=== PATIENT | male | born 1975 | race Caucasian/White ===

== ENCOUNTER 2020-07-25 15:32 | Observation (INO) | payer BC, SELFPAY ==
--- NOTE | ~2020-07-25 | CT_ITS ---
EXAMINATION: CT abdomen pelvis w con DATE: 07/25/2020 20:50 INDICATION: Abdominal pain TECHNIQUE: Computed tomography (CT) of the abdomen and pelvis was performed with 100 mL Omnipaque-350 intravenous contrast. Automated exposure control and iterative reconstruction technique were employe d. The dose-length product was 1509.84 mGy-cm. COMPARISON: None FINDINGS: 9 mm nodule in the right middle lobe with several smaller surrounding satellite nodules. Discoid atel ectasis in the lingula and left lower lobe. Heart size is normal. No pericardial or pleural effusion. Liver, gallbladder, spleen, pancreas and bilateral adrenal glands are normal. Few bilateral subcenti meter low-attenuation likely renal cysts which remain too small to definitively characterize. There i s inflammatory stranding surrounding the appendix which is dilated to 12 mm distal to likely obstruct ing appendicolith in the proximal appendix consistent with acute appendicitis. Remainder of the bowel s are normal. No abscess or free intraperitoneal gas or fluid. Small fat-containing umbilical hernia. Bladder is normal. Small bilateral fat-containing inguinal hernias. Mild lower lumbar spondylosis. IMPRESSION: 1. Acute appendicitis. Dr. Herring discussed these findings with Dr. Guerrero at 9:00 PM. Reviewed, dictated and finalized at location A. IMPRESSION: 1. Acute appendicitis. Dr. Herring discussed these findings with Dr. Guerrero at 9 :00 PM.
[2020-07-25 16:13] VITALS: BP 153/79; PULSE 63; RESP 16; TEMP 36.7; O2SAT 99
[2020-07-25 16:24] LABS: Basophils Absolute Auto 0.1 K/mm3 (0.0-0.1); Basophils Percent Auto 0.6 % (0.2-1.2); Eosinophils Absolute Auto 0.1 K/mm3 (0-0.3); Eosinophils Percent Auto 0.8 % (0-4.4); Hematocrit 51.8 % (42.0-52.0); Hemoglobin 16.5 g/dL (14.0-18.0); Immature Granulocyte Absolute 0.05 K/mm3 (0.00-0.031); Immature Granulocyte Percent A 0.4 % (0-0.5); Lymphocytes Absolute Auto 1.46 K/mm3 (0.9-3.2); Lymphocytes Percent Auto 11.8 % (18.3-44.2); Mean Corpuscular HGB Conc 31.9 g/dl (32-36); Mean Corpuscular Hemoglobin 30.9 pg (26-34); Mean Platelet Volume 9.9 fl (7.4-10.4); Monocytes Absolute Auto 1.1 K/mm3 (0.1-0.6); Monocytes Percent Auto 8.5 % (2.6-8.5); Neutrophils Absolute Auto 9.7 K/mm3 (1.3-6.7); Neutrophils Percent Auto 77.9 % (45.5-73.1); Platelet Count Result 225 k/mm3 (150-375); Red Blood Count 5.34 M/mm3 (4.6-6.20); Red Cell Distribution Width 14.2 % (11.5-14.5); White Blood Count 12.4 K/mm3 (4.5-10.0)
[2020-07-25 16:33] LABS: Alanine Aminotransferase 36 U/L (4-50); Albumin Level 4.6 g/dL (3.5-5.1); Alkaline Phosphatase 41 U/L (38-126); Anion Gap 12 mmol/L (8-16); Aspartate Amino Transferase 36 U/L (17-59); Bilirubin,Total 1.2 mg/dL (0.2-1.3); Blood Urea Nitrogen 10 mg/dL (9-20); Calcium 9.8 mg/dL (8.4-10.2); Carbon Dioxide 27 mmol/L (22-30); Chloride 103 mmol/L (98-107); Estimated CRCL calculation 101 ml/min; Estimated Glomerular Filt Rate 60; Glucose 103 mg/dL (75-110); Lipase 89 U/L (23-300); Potassium 4.5 mmol/L (3.4-5.0); Sodium 142 mmol/L (137-145)
[2020-07-25 17:14] LABS: Add Urine Microscopic? YES; Appearance Urine Clear (Clear); Bacteria Urine Trace /hpf; Bilirubin Urine Negative (Negative); Blood Urine Negative (Negative); Color Urine Yellow (Yellow); Glucose Urine UA Negative (Negative); Ketones Urine Negative (Negative); Leukocyte Esterase Ur Negative LEU/UL (Negative); Mucus Urine Rare /lpf; Nitrate Urine Negative (Negative); Protein Urine 1+ mg/dL (Negative); RBC Urine 0-2 /hpf (0-2); Specific Grav Ur 1.025 (1.001-1.035); Urobilinogen Urine Negative mg/dL (<2.0); WBC Urine 0-3 /hpf
[2020-07-25 19:29] VITALS: BP 148/90; PULSE 63; RESP 17; TEMP 36.7; O2SAT 100
--- NOTE | 2020-07-25 19:40 | PC.NURSE ---
pt c/o abd pain to medial upper abd. reports waking up c chronic abd pain x 3 years without resolution/dx. pt reports ate 'a lot of sushi last night' and woke up feeling nauseous. approx. 1400 today pt vomited large amt of green/yellow bile. pt currently in no distress. resps even/nonlabored.
--- NOTE | 2020-07-25 19:53 | ED.GENADULT ---
HPI - General Adult General Chief complaint: Abdominal Pain Stated complaint: abd pain Time Seen by Provider: 07/25/20 19:31 Source: patient History of Present Illness HPI narrative: Patient is a 45 y/o male complaining of abdominal pain starting 12 hours ago. He describes his pain as sharp and cramping. He rates his pain as 7/10. The pain is mostly located in epigastric area. There is no alleviating or exacerbating factor. He has some vomiting, but no diarrhea. Related Data Home Medications Medication Instructions Recorded Confirmed omeprazole 40 mg capsule,delayed 40 mg PO DAILY 03/16/19 07/25/20 release atorvastatin 20 mg PO DAILY 07/25/20 07/25/20 irbesartan 150 mg PO DAILY 07/25/20 07/25/20 metoprolol succinate 50 mg PO DAILY 07/25/20 07/25/20 Allergies Allergy/AdvReac Type Severity Reaction Status Date / Time No Known Allergies Allergy Mild Verified 07/25/20 22:53 Review of Systems Constitutional: Constitutional: Denies chills, Denies fever(s), Denies headache(s) and Denies weakness Eyes: Eyes: Denies blurry vision ENT: Denies headache(s) and Denies neck pain Cardiovascular: Cardiovascular: Denies chest pain and Denies dyspnea Respiratory: Respiratory: Denies cough and Denies dyspnea Gastrointestinal: Gastrointestinal: Reports abdominal pain, Denies diarrhea, Reports nausea and Reports vomiting Genitourinary: Genitourinary: Denies hematuria and Denies dysuria Musculoskeletal: Musculoskeletal: Denies back pain and Denies neck pain Neurologic: Denies headache(s) and Denies weakness [facility] Past Medical History Medical History Erectile dysfunction Hyperlipidemia LDL goal <130 Family History Family History Mother Diabetes mellitus Family history of gout Grandparent Diabetes mellitus Family history of malignant neoplasm Father Family history of chronic obstructive pulmonary disease Family history of congestive heart failure Social History Social History Smoking status: Never smoker Alcohol intake: current Drinks per week: 7 Substance use: never Spiritual care concerns: No Exam Const: General: no acute distress and well developed Orientation/consciousness: oriented to person, oriented to place, oriented to time and patient oriented x3 HENMT: Head: normocephalic Ears: external ears normal General nose exam: Normal external nose present Eyes: General: appearance normal, both eyes and all related structures Conjunctivae: conjunctivae normal Neck: Neck: normal visual inspection and full ROM Chest: Chest palpation & inspection: normal inspection of the chest and no tenderness Resp: Effort & Inspection: normal respiratory effort Auscultation: clear to auscultation bilaterally Cardio: Rate: regular rate Rhythm: regular rhythm GI: GI Palp: No abdominal tenderness and Yes Soft to palpation Skin: General skin exam: normal color and turgor normal Neuro: General: oriented to person, oriented to place, oriented to time and patient oriented x3 Cognition (Neuro): normal cognition Extrem: General: normal to inspection, full ROM and no pedal edema Psych: Appearance: grossly normal Mental Status: mental status grossly normal Affect: normal affect Course Consultations Consultation #1: Discussed with Dr. Ornelas, who agrees to admit. He recommends IV antibiotics and NPO after midnight. Date: 07/25/20 Time: 21:05 Vital Signs Vital signs: Vital Signs Temperature 36.7 C 07/25/20 16:13 Pulse Rate 63 07/25/20 16:13 Respiratory Rate 16 07/25/20 16:13 Blood Pressure 153/79 H 07/25/20 16:13 Pulse Oximetry 99 07/25/20 16:13 Temperature 36.7 C 07/25/20 22:30 Pulse Rate 70 07/25/20 22:30 Respiratory Rate 20 07/25/20 22:30 Blood Pressure 139/80 07/25/20 22:30 Pulse Oximetry 99 07/25/20 22
[2020-07-25] MEDS: METOCLOPRAMIDE HCL INJ 10 MG/2 ML VIAL IV PUSH (20:25)
[2020-07-25] MEDS: KETOROLAC 30 MG/ML VIAL (*BKC) IV PUSH (20:25)
[2020-07-25] MEDS: SODIUM CHLORIDE 0.9% IV 1,000 ML 999 ML IV CONT (20:25)
[2020-07-25 21:31] VITALS: PULSE 88; RESP 18; O2SAT 100
[2020-07-25 21:34] VITALS: BP 157/113; PULSE 88; RESP 18; TEMP 36.7; O2SAT 100
--- NOTE | 2020-07-25 22:25 | PC.NURSE ---
This patient, Werner Mendoza, was admitted to [facility] S[facility] Room 310-01. Patient/family oriented to hospital policies and general routines including ID bracelet, bed and alarms, visiting hours, pain management, procedures, bathroom and other care routines, personal items, smoking policy, room service/diet, and visiting hours. Information on how to activate the Rapid Response Team has been discussed. Patient/Family are encouraged to report perceived risks to care and to ask questions if they do not understand what they are told or what they should do.
[2020-07-25 22:30] VITALS: BP 139/80; PULSE 70; RESP 20; TEMP 36.7; O2SAT 99; BMI 36.8
[2020-07-25] MEDS: SODIUM CHLORIDE 0.9% IV 1,000 ML 125 ML IV CONT (22:34)
[2020-07-25] MEDS: MORPHINE SULFATE (*CRX) 4 MG/ML INJ IV PUSH (22:34)
[2020-07-26] VITALS (13 sets, daily range): BP systolic 125–147; BP diastolic 53–79; PULSE 67–82; RESP 12–20; TEMP 36.1–37.6; O2SAT 91–100
[2020-07-26] MEDS: MORPHINE SULFATE (*CRX) 4 MG/ML INJ IV PUSH ×2 (05:12→08:18)
[2020-07-26] MEDS: SODIUM CHLORIDE 0.9% IV 1,000 ML 125 ML IV CONT (05:13)
--- NOTE | 2020-07-26 09:17 | PM.IMHP ---
H&P: HPI History of Present Illness Date/Time: 07/26/20 09:17 Chief Complaint: Generalized abdominal pain, vomiting Narrative: This is a 45-year-old male with a history of hypertension and obstructive sleep apnea, who presented to the emergency department last night with complaints of abdominal pain. He reports 1st noticing an onset of mild upper abdominal pain around 8:30 a.m. yesterday. Throughout the day, this progressively worsened and became generalized across his entire abdomen. He reports this as a burning pain. He also reports nausea throughout the day, with 2 episodes of vomiting followed by chills. Due to the unrelenting pain, the patient presented to the ER for further evaluation. CT scan of the abdomen and pelvis showed acute uncomplicated appendicitis. Labs revealed mild leukocytosis. He was admitted to our service for surgical evaluation of acute appendicitis. The patient reports that his pain began to localize to the right lower quadrant overnight and into this morning. Now, he is only having right lower quadrant abdominal pain. He is seen on the medical floor. No longer feeling nauseated. He has not had anything to eat or drink since 10:00 p.m. last night. No other complaints at this time. Review of Systems Review of Systems: All systems reviewed & are unremarkable except as noted in HPI and below Constitutional: Constitutional: Reports as per HPI, Reports chills, Denies fatigue and Denies fever(s) Eyes: Eyes: Reports no additional eye complaints and Denies change in vision ENT: Reports system reviewed and no additional complaints, except as documented, Reports Normal hearing present and Denies dizziness Cardiovascular: Cardiovascular: Reports no additional cardiovascular complaints, Denies chest pain and Denies leg edema Respiratory: Respiratory: Reports no additional respiratory complaints, Denies cough and Denies dyspnea Gastrointestinal: Gastrointestinal: Reports as per HPI, Reports no additional gastrointestinal complaints, Reports abdominal pain, Denies bloating, Denies change in bowel habits, Denies coffee ground emesis, Denies constipation, Reports nausea, Reports vomiting and Denies hematemesis Genitourinary: Genitourinary: Denies hematuria and Denies dysuria Musculoskeletal: Musculoskeletal: Denies abnormal gait, Denies deformity and Denies joint swelling Integumentary/Breasts: Skin/Breast: Denies wounds and Denies jaundice Neurologic: Reports system reviewed and no additional complaints, except as documented, Denies abnormal gait, Denies dizziness, Denies focal weakness, Denies numbness and Denies tingling Psychiatric: Psychiatric: Reports anxiety (takes Lexapro for this, controlled) and Denies depression [facility] Past Medical History Medical History (Updated 07/26/20 @ 09:27 by MICHELLE Lynn) Anxiety Erectile dysfunction Hyperlipidemia LDL goal <130 Hypertension Obstructive sleep apnea Surgical History Surgical History History of foot surgery History of inguinal hernia repair at age 7 Family History Family History Mother Diabetes mellitus Family history of gout Grandparent Diabetes mellitus Family history of malignant neoplasm Father Family history of chronic obstructive pulmonary disease Family history of congestive heart failure Social History Social History Social History: The patient lives at home with his , Beverly. He does not have a durable Healthcare power of inpatient care manager rn, and wishes that his Beverly make any decisions for him if he becomes unable to make decisions himself. Smoking status: Former smoker Smoking end date: 02/18/97 Alcohol intake: current Drinks per week: 7 Substance use: never Substance use type: does not use Living arrangements: with family Occupation/Edu
--- NOTE | 2020-07-26 10:36 | WPDHPUPDATE1 ---
History and Physical Update Update Date/Time: 07/26/20 10:36 History and Physical has been reviewed, including an updated exam of the patient. There are NO changes in the patient's condition. Risks, benefits, and alternatives have been discussed and questions answered. Patient agrees to proceed with procedure.
--- NOTE | 2020-07-26 10:50 | WPDANESEPPF ---
Anes - Initial Pre Proc Eval Procedure: Operation Date: 07/26/20 12:30 Proposed Procedures p Laparoscopic Appendectomy - Melba Ornelas MD Date/Time: 07/26/20 10:50 Surgeon: Melba Ornelas MD Pre Op Diagnosis: Appendicitis Patient Data Age: 45 Gender: M Height: 2.01 m Weight: 148.5 kg Last Vital Signs Temp 37.6 C 07/26/20 05:50 Pulse 75 07/26/20 05:50 Resp 18 07/26/20 05:50 BP 126/69 07/26/20 05:50 Pulse Ox 97 07/26/20 05:50 Allergies Allergy/AdvReac Type Severity Reaction Status Date / Time No Known Allergies Allergy Mild Verified 07/26/20 11:21 Home Medications Medication Instructions Recorded Confirmed Type omeprazole 40 mg capsule,delayed 40 mg PO DAILY 03/16/19 07/25/20 History release tadalafil 20 mg tablet 20 mg PO DAILY PRN #18 tablet 03/14/20 07/25/20 Rx escitalopram oxalate 20 mg tablet 20 mg PO DAILY #90 tablet 05/03/20 07/25/20 Rx atorvastatin 20 mg PO DAILY 07/25/20 07/25/20 History irbesartan 150 mg PO DAILY 07/25/20 07/25/20 History metoprolol succinate 50 mg PO DAILY 07/25/20 07/26/20 History Laboratory Tests 07/25/20 07/25/20 07/25/20 16:17 16:17 16:45 WBC 12.4 K/mm3 H K/mm3 (4.5-10.0) RBC 5.34 M/mm3 M/mm3 (4.6-6.20) Hgb 16.5 g/dL g/dL (14.0-18.0) Hct 51.8 % % (42.0-52.0) MCV 97.0 fl fl (80-100) MCH 30.9 pg pg (26-34) MCHC 31.9 g/dl L g/dl (32-36) RDW 14.2 % % (11.5-14.5) Plt Count 225 k/mm3 k/mm3 (150-375) MPV 9.9 fl fl (7.4-10.4) Immature Gran % (Auto) 0.4 % % (0-0.5) Neut % (Auto) 77.9 % H % (45.5-73.1) Lymph % (Auto) 11.8 % L % (18.3-44.2) [place] % (Auto) 8.5 % % (2.6-8.5) Eos % (Auto) 0.8 % % (0-4.4) Baso % (Auto) 0.6 % % (0.2-1.2) Lymph # (Auto) 1.46 K/mm3 K/mm3 (0.9-3.2) [place] # (Auto) 1.1 K/mm3 H K/mm3 (0.1-0.6) Eos # (Auto) 0.1 K/mm3 K/mm3 (0-0.3) Baso # (Auto) 0.1 K/mm3 K/mm3 (0.0-0.1) Abs Immat Gran (auto) 0.05 K/mm3 H K/mm3 (0.00-0.031) Absolute Neuts (auto) 9.7 K/mm3 H K/mm3 (1.3-6.7) Absolute Nucleated RBC 0.0 K/mm3 K/mm3 (0.0-0.012) Nucleated RBC % 0.0 % % (0.0-0.2) Sodium 142 mmol/L mmol/L (137-145) Potassium 4.5 mmol/L mmol/L (3.4-5.0) Chloride 103 mmol/L mmol/L (98-107) Carbon Dioxide 27 mmol/L mmol/L (22-30) Anion Gap 12 mmol/L mmol/L (8-16) BUN 10 mg/dL mg/dL (9-20) Creatinine 1.30 mg/dL mg/dL (0.7-1.3) Estim Creat Clear Calc 101 ml/min ml/min Estimated GFR 60 (59 - ) Glucose 103 mg/dL mg/dL (75-110) Calcium 9.8 mg/dL mg/dL (8.4-10.2) Total Bilirubin 1.2 mg/dL mg/dL (0.2-1.3) AST 36 U/L U/L (17-59) ALT 36 U/L U/L (4-50) Alkaline Phosphatase 41 U/L U/L (38-126) Total Protein 8.0 g/dL g/dL (6.3-8.2) Albumin 4.6 g/dL g/dL (3.5-5.1) Lipase 89 U/L U/L (23-300) Urine Color Yellow (Yellow) Urine Appearance Clear (Clear) Urine pH 6.0 (5.0-9.0) Ur Specific [place] 1.025 (1.001-1.035) Urine Protein 1+ mg/dL H mg/dL (Negative) Urine Glucose (UA) Negative mg/dL mg/dL (Negative) Urine Ketones Negative mg/dL mg/dL (Negative) Ur Blood (Man) Negative (Negative) Urine Nitrate Negative (Negative) Urine Bilirubin Negative (Negative) Urine Urobilinogen Negative mg/dL mg/dL (<2.0) Leukocyte Esterase Rfl Negative MARI/UL MARI/UL (Negative) Urine RBC 0-2 /hpf /hpf (0-2) Urine WBC 0-3 /hpf /hpf Urine Bacteria Trace /hpf /hpf Urine Mucus Rare /lpf /lpf Patient hx anesthesia
--- NOTE | 2020-07-26 11:08 | PC.NURSE ---
To OR per bed, IV on standby. Report given to RN.
[2020-07-26] MEDS: LACTATED RINGERS 1,000 ML 30 ML IV CONT ×2 (11:26→13:28)
[2020-07-26] MEDS: BUPIVACAINE/EPINEPHRINE 0.5% 10 ML VIAL 30 ML INFILTRATE (12:59)
--- NOTE | 2020-07-26 13:36 | W.PM.PROC2 ---
Procedure Note - Detailed Date of Procedure 07/26/20 Pre-op Diagnosis Appendicitis Post-op Diagnosis same Procedure Performed laparoscopic appendectomy Surgeon Melba Ornelas MD Anesthesia general Indications acute appendicitis Findings acute appendicitis no evidence of perforation Description of Procedure The patient was taken to the operating room and placed in the supine position. After adequate induction of general anesthesia, the patient was prepped and draped in the normal sterile fashion. A time-out was then done to verify the patient's identity, as well as the procedure being performed. I began by making a 5 mm incision in the infraumbilical region, through this a Veress needle was placed in the peritoneal cavity. CO2 gas was then insufflated and after adequate pneumoperitoneum was achieved the Veress needle was removed. Then placed a 5 mm Optiview trocar under direct visualization into the peritoneal cavity. I then insufflated through this trocar site and the endoscope was placed into the trocar. Under direct visualization, placed 2 further 5 mm suprapubic port as well as an additional 12 mm port in the left lower abdomen. At this point identified the cecum, I retracted the cecum both medially and superiorly allowing me to expose the appendix. The appendix was noted to be very dilated and inflamed especially towards the tip. The appendix was noted to be very adherent to the right lateral sidewall as well as the ileum. I was able to bluntly dissect the appendix from these adhesions. I then was able to locate the base of the appendix with the cecum. I created a window with the [place] dissector between the appendix itself and the mesoappendix. I then transected the mesoappendix with a white vascular staple load. The Endo-PRACHI was then reloaded with a blue staple load and I transected the base of the appendix. Once the specimen was completely detached, an endo-pouch was placed into the 12 mm port site and the specimen was removed through the endo-pouch. The appendiceal specimen will be sent to pathology for further review. I then copiously irrigated the right lower quadrant. Hemostasis was noted at both staple lines no other pathology was seen in this area. I then moved the camera to the suprapubic port to check our its port of entry. No iatrogenic injury or other pathology was noted in the upper abdomen. I then closed the 12 mm port site with a Yonis code and 0 Vicryl suture under direct visualization. At this point, the abdomen was desufflated and all ports were removed. All port sites were closed with 4 Monocryl subcuticular suture. Dermabond was placed on all wounds. The patient tolerated the procedure well and was extubated in the operating room postop. He will be sent to the recovery room in stable condition. Estimated Blood Loss 10 Drains No Packing No Pathology yes Complications No immediate complications Condition stable Disposition PACU
[2020-07-26] MEDS: fentaNYL CITRATE INJ (*CRX) 100 MCG/2 ML VIAL 25 MCG IV PUSH (14:26)
--- NOTE | 2020-07-26 15:05 | PC.NURSE ---
Returned from OR per bed. Report received from RN. Resting quietly, denies pain of discomfort at present. at bedside.
--- NOTE | 2020-07-27 07:37 | WPDANESPN ---
Anes - Prog Note Post-Op Date/Time: 07/27/20 07:37 Cardiovascular status: normal Respiratory status: normal Airway patency: baseline Mental status: baseline Post-Op hydration status: normal Vital Signs: Last Vital Signs Temp 98.6 F 07/26/20 16:50 Pulse 78 07/26/20 16:50 Resp 18 07/26/20 16:50 BP 125/73 07/26/20 16:50 Pulse Ox 99 07/26/20 16:50 Pain Score (VAS): 0 I/O: Intake & Output 07/26/20 07/26/20 07/27/20 15:59 23:59 07:59 Intake Total 800 Balance 800 Laboratory Tests 07/25/20 16:17 07/25/20 16:17 Post-procedural complaints: none Patient Feedback: Patient satisfied with anesthetic care.
--- NOTE | 2020-07-28 13:14 | PM.DS ---
DS: Admitting Diagnosis Admitting Diagnosis Admitting Diagnosis: Acute appendicitis DS: Discharge Diagnosis Discharge Diagnosis (1) Acute appendicitis: Qualifiers: Acute appendicitis type: unspecified acute appendicitis type Qualified Code(s): K35.80 - Unspecified acute appendicitis Code(s): K35.80 - Unspecified acute appendicitis Status: Acute Assessment and Plan: doing well, continue routine postoperative care, home with p.o. analgesia, follow up 2 weeks DS: Summary Hospital Course Reason for hospitalization: acute appendicitis Hospital Course: The patient is a 45-year-old male presenting to the emergency department complaining of lower abdominal pain. Workup in the emergency department, including imaging, was significant for acute appendicitis. Given this, the patient was admitted to the surgical service, made NPO, and started on IV antibiotics. Upon evaluation, the patient was set up for urgent appendectomy. The patient underwent laparoscopic appendectomy on 07/26/2020, please see full operative report for details. Postoperative, the patient did well and was transferred back to the floor. The patient reported his pain was well controlled and he was able to tolerate a diet. The patient was able to ambulate without difficulty. The patient will be sent home with routine instructions for postoperative care as well as p.o. analgesia. He will follow up in 2 weeks. Status at Discharge Functional status at discharge: independent ambulation Overall status at discharge: patient is progressing back to baseline Time Spent with Patient Time attestation: Total time spent providing and/or coordinating discharge services: Time spent: Less than 30 minutes Exam Const: General: cooperative, comfortable and no acute distress Orientation/consciousness: patient oriented x3 Resp: Effort & Inspection: normal respiratory effort Auscultation: clear to auscultation bilaterally Cardio: Rate: regular rate Rhythm: regular rhythm GI: Inspection: normal to inspection, distended and incision GI Palp: Yes Soft to palpation, Yes Tenderness to palpation present (GI) and No Guarding due to palpation present (GI) DS: Data Data Completed and Pending Completed studies during hospitalization: Pending at discharge 07/26/20 12:53 Surgical [PTH] Routine Discharge Plan Discharge Attending physician on discharge: Melba Ornelas Consulting providers: Noemy Ayers ; Carlos Diaz ; Yusuf Herring Discharging Clinician: Melba Ornelas Anticipated Discharge Date/Time: 07/26/20 18:00 Patient Disposition: Home, Self-Care Activity: other - see discharge instructions Diet: as tolerated Wound Care Instructions: follow printed instructions Discharge Instructions: DISCHARGE INSTRUCTION SHEET FOR HERNIA, GALLBLADDER AND APPENDIX SURGERIES DR. ORNELAS PATIENT TO TAKE HOME 1. May shower in 24 hours, no soaking in bath x 2weeks. 2. Call office for: Wound increasingly painful or bleeding Vomiting Fever of greater than 101 degrees 3. If no bowel movement for three days, take 1 oz. (30 ml) Milk of Magnesia or MiraLax 17g 1 to 2 times daily. 4. No heavy lifting > 10-15 pounds x 6 weeks for hernia repairs and 2 weeks for laparoscopic cholecystectomy or appendectomy. 5. No driving for 3 days or while taking narcotic pain medications. 6. Ice to surgical site for 48 hours (30 min on, then 30 min off). 7. Up walking 10-30 minutes three times per day. 8. Resume previous home medications. 9. Follow-up 10-14 days in office for wound check or as previously scheduled. ([phone]) 10. Oral pain medications prescription to be sent to pharmacy. Take Tylenol 500mg every 6 hours and Ibuprofen 600mg every 6 hours for the first 2 days, then as needed. 11. NUTRITION: Start out by drinking fluids and increase your diet as tolerated.
== END 2020-07-26 17:30 | disposition home or self-care (01) ==
LOC: ANHED 19:31 → ANH3MEDSUR 21:59
PROVIDERS: Emergency Medicine; Admitting Provider Surgery; Emergency Provider Emergency Medicine; PCP Internal Medicine; Visit Provider Surgery
PROC: 0DTJ4ZZ Resection of Appendix, Percutaneous Endoscopic Approach (ICD-10-PCS; CPT 44970; principal; 2020-07-26 12:30)
DX: K35.30 Acute appendicitis with localized peritonitis, without perforation or gangrene (principal); K42.9 Umbilical hernia without obstruction or gangrene; R91.1 Solitary pulmonary nodule; E78.5 Hyperlipidemia, unspecified; I10 Essential (primary) hypertension; G47.33 Obstructive sleep apnea (adult) (pediatric); F41.9 Anxiety disorder, unspecified; E66.9 Obesity, unspecified; Z68.36 Body mass index [BMI] 36.0-36.9, adult
CPT/HCPCS: 44970; 36415; 74177; 80053; 81001; 83690; 85025; 88304; 96361; 96365; 96375; 96376; 99285; G0378; G0379; J0330; J1100; J1885; J2250; J2270; J2405; J2543; J2704; J2765; J3010; J7030; J7120; Q9967

== ENCOUNTER 2020-10-17 15:43 | Outpatient (CLI) | payer BC, SELFPAY ==
--- NOTE | ~2020-10-17 | CT_ITS ---
EXAMINATION:CT diagnostic chest wo con DATE: 10/17/2020 16:02 INDICATION: Solitary pulmonary nodule. TECHNIQUE: Computed tomography (CT) of the chest was performed without intravenous contrast. Automate d exposure control and iterative reconstruction technique were employed. The dose-length product (DLP ) was 403.77 mGy-cm. COMPARISON: CT abdomen and pelvis 07/25/20 FINDINGS: There is mild atelectasis bilaterally. There is a 12 mm nodule with small satellite nodules in right middle lobe. There are a few scattered nodules in the lungs measuring up to 2 mm. There is a 12 x 13 mm right hilar lymph node. No pleural effusion. The heart size is normal. There are coronar y artery calcifications. No pericardial effusion. The bones are unremarkable. IMPRESSION: 1. 12 mm pulmonary nodule, stable from 07/25/2020. The morphology and lack of change favor granulomatou s disease, but neoplasm may have the same appearance. PET/CT is recommended. 2. Mildly enlarged right hilar lymph node not included on the prior scan. Reviewed, dictated and finalized at location A. IMPRESSION: 1. 12 mm pulmonary nodule, stable from 07/25/2020. The morphology and lack of melany nge favor granulomatous disease, but neoplasm may have the same appearance. PET /CT is recommended. 2. Mildly enlarged right hilar lymph node not included on the prior scan.
== END 2020-10-17 15:44 | disposition home or self-care (01) ==
LOC: ANHIMG 15:44
PROVIDERS: PCP Internal Medicine; Visit Provider Internal Medicine
DX: R91.1 Solitary pulmonary nodule (principal)
CPT/HCPCS: 71250

== ENCOUNTER 2020-11-17 13:35 | Outpatient (CLI) | payer BC, SELFPAY ==
--- NOTE | ~2020-11-17 | PE_ITS ---
EXAMINATION: PET skull to mid thigh DATE: 11/17/2020 15:25 INDICATION: Pulmonary nodule TECHNIQUE: Blood glucose level was 97 mg/dL. 13.76 mCi of 18-fluorodeoxyglucose (18-FDG) was administ ered i.v. Low dose computed tomography (CT) images were acquired from the base of the brain to the pr oximal thighs for attenuation correction and anatomic localization. Positron emission tomography (PET ) images were acquired in the same distribution beginning 63 minutes after injection. The dose-length product (DLP) was 1453.20 mGy-cm. COMPARISON: 10/17/2020 FINDINGS: Head/neck: There is asymmetric thickening of the left base of the tongue with abnormal FDG uptake and an SUV max of 5.6. No pathologically enlarged neck lymph nodes are identified. Chest: There is a stable 12 mm nodule in the right middle lobe with adjacent small satellite nodules. None demonstrate abnormal FDG uptake. There is also mildly enlarged right hilar lymph node without a ssociated FDG uptake. The heart size is normal. Calcified atherosclerosis is noted. There is mild ate lectasis. No pleural effusion or pneumothorax is identified. Abdomen/pelvis/proximal thighs: Physiologic FDG activity is present in the bowel and urinary tract. N o abnormal FDG uptake is identified. The liver, spleen, pancreas, gallbladder, and adrenal glands are normal. The kidneys are unremarkable. There is a fat-containing umbilical hernia. No pathologically enlarged abdominal or pelvic lymph nodes are identified. There is no free intraperitoneal gas or evid ence of bowel obstruction. Musculoskeletal: No abnormal FDG uptake is identified. IMPRESSION: 1. Right middle lobe nodules and right hilar lymph nodes are without abnormal FDG uptake, likely infe ctious or inflammatory. Follow-up CT in six months is recommended. 2. Asymmetric thickening of the left base of the tongue with abnormal FDG uptake. Direct visualizatio n is recommended to evaluate for malignancy. Reviewed, dictated and finalized at location A. IMPRESSION: 1. Right middle lobe nodules and right hilar lymph nodes are without abnormal F DG uptake, likely infectious or inflammatory. Follow-up CT in six months is rec ommended. 2. Asymmetric thickening of the left base of the tongue with abnormal FDG uptak e. Direct visualization is recommended to evaluate for malignancy.
[2020-11-17 13:54] LABS: Glucose Point of Care 97 mg/dl (65-105)
== END 2020-11-17 13:36 | disposition home or self-care (01) ==
PROVIDERS: PCP Internal Medicine; Visit Provider Internal Medicine Pulmonary Disease
DX: R91.1 Solitary pulmonary nodule (principal)
CPT/HCPCS: 78815; A9552

== ENCOUNTER 2020-12-20 15:21 | Outpatient (CLI) | payer BC, SELFPAY ==
--- NOTE | 2020-12-20 15:28 | ECG_ITS ---
Measurements Intervals [place] Rate: 70 P: 12 AL: 159 QRS: -40 QRSD: 106 T: 32 QT: 395 QTc: 426 Interpretive Statements SINUS RHYTHM LEFT AXIS DEVIATION VOLTAGE CRITERIA FOR LVH MINIMAL Q WAVES- HIGH LATERAL LEADS BASELINE ARTIFACT- I, AVL, V4-V6 BORDERLINE ECG Electronically Signed On 12-20-2020 15:39:57 CDT by Escobar White D.O.
== END 2020-12-20 15:22 | disposition home or self-care (01) ==
LOC: ANHSURGERY 15:25
PROVIDERS: PCP Internal Medicine; Visit Provider Otolaryngology
DX: I10 Essential (primary) hypertension (principal); Z01.818 Encounter for other preprocedural examination; R94.31 Abnormal electrocardiogram [ECG] [EKG]
CPT/HCPCS: 93005

== ENCOUNTER 2020-12-23 01:09 | Day surgery (SDC) | payer BC, SELFPAY ==
[2020-12-16 12:01] VITALS: BMI 31.6
--- NOTE | 2020-12-21 14:06 | PM.IMHP ---
H&P: HPI History of Present Illness Date/Time: 12/21/20 14:06 Chief Complaint: Abnormal tongue base left Narrative: patient presents for planned surgical procedure no change in symptoms no change in history Review of Systems Constitutional: Constitutional: Denies fatigue, Denies fever(s) and Denies lethargy Eyes: Eyes: Denies blurry vision and Denies change in vision ENT: Reports as per HPI Cardiovascular: Cardiovascular: Denies chest pain Respiratory: Respiratory: Denies cough Endocrine: Endocrine: Denies fatigue Hematologic/Lymphatic: Hematologic/Lymphatic: Denies easy bleeding, Denies easy bruising and Denies lymphadenopathy Allergic/Immunologic: Allergic/Immunologic: Denies seasonal rhinorrhea PMFSH Past Medical History Medical History Anxiety Erectile dysfunction Hyperlipidemia LDL goal <130 Hypertension Obesity (BMI 30-39.9) Obstructive sleep apnea Surgical History Surgical History History of foot surgery History of inguinal hernia repair at age 7 History of laparoscopic appendectomy 07/26/20 Family History Family History Mother Diabetes mellitus Family history of gout Grandparent Diabetes mellitus Family history of malignant neoplasm Father Family history of chronic obstructive pulmonary disease Family history of congestive heart failure Social History Social History Social History: The patient lives at home with his , Beverly. He does not have a durable Healthcare power of science technicians, and wishes that his Beverly make any decisions for him if he becomes unable to make decisions himself. Smoking packs per day: 0.5 Smoking cigarettes per day: 10.0 Years smoked: 2 Smoking pack-years: 1.00 Smoking status: Former smoker Smoking end date: 02/19/96 Alcohol intake: current Drinks per week: 7 Alcohol use details: RARE, ON WEEKENDS Substance use: never Substance use type: does not use Additional occupation/education comments: Works at [employer] Gender identity (if verbalized by the patient): Male Sexual Orientation (if Verbalized by the Patient): Straight or Heterosexual Spiritual care concerns: No Meds Home Medications and Allergies Home Medications Medication Instructions Recorded Confirmed Type tadalafil 20 mg tablet 20 mg PO DAILY PRN #18 tablet 03/14/20 12/16/20 Rx escitalopram oxalate 20 mg tablet 20 mg PO DAILY #90 tablet 05/03/20 12/16/20 Rx atorvastatin 20 mg PO DAILY 07/25/20 12/16/20 History irbesartan 150 mg PO DAILY 07/25/20 12/16/20 History omeprazole 40 mg capsule,delayed 40 mg PO DAILY #90 cap 08/09/20 12/16/20 Rx release Allergies Allergy/AdvReac Type Severity Reaction Status Date / Time No Known Allergies Allergy Mild Verified 12/16/20 11:59 Exam Const: General: cooperative, healthy appearing, comfortable, well developed and alert HENMT: Head: normal to inspection, normocephalic and atraumatic Ears: hearing grossly normal bilaterally, external ears normal, TM's normal bilaterally and EAC's normal General nose exam: Normal external nose present, Normal nares present, No nasal polyps present, Normal nasal mucous membranes and turbinates present and Normal septum present Face and sinus: normal facial exam Mouth: Yes Normal oral and palatal mucosa present, Yes lip normal, Yes tongue normal, Yes oropharynx normal and Yes moist mucous membranes Teeth and gingiva: dentition normal and gingiva normal Throat: posterior oropharynx normal, tonsils normal and uvula midline Eyes: General: appearance normal, both eyes and all related structures Periorbital: periorbital findings normal Eyelids: eyelids normal Conjunctivae: conjunctivae normal Sclera: sclerae normal Neck: Neck: normal visual inspection, full ROM and
--- NOTE | 2020-12-23 07:04 | WPDHPUPDATE1 ---
History and Physical Update Update Date/Time: 12/23/20 07:04 History and Physical has been reviewed, including an updated exam of the patient. There are NO changes in the patient's condition. Risks, benefits, and alternatives have been discussed and questions answered. Patient agrees to proceed with procedure.
[2020-12-23] MEDS: ACETAMINOPHEN 500 MG TABLET 1000 MG PO (11:12)
[2020-12-23] MEDS: LACTATED RINGERS 1,000 ML 30 ML IV CONT ×2 (11:24→13:53)
[2020-12-23 11:25] VITALS: BP 146/93; PULSE 74; RESP 20; TEMP 36.6; O2SAT 96; BMI 32.5
--- NOTE | 2020-12-23 11:43 | WPDANESEPPF ---
Anes - Initial Pre Proc Eval Procedure: Operation Date: 12/23/20 12:45 Proposed Procedures p Microlaryngoscopy with Biopsy of Left Base of Tongue - Blade Deluca MD Date/Time: 12/23/20 11:43 Surgeon: Blade Deluca MD Pre Op Diagnosis: malformation of tongue Patient Data Age: 45 Gender: M Height: 2.01 m Weight: 131 kg Last Vital Signs Temp 36.6 C 12/23/20 11:25 Pulse 74 12/23/20 11:25 Resp 20 12/23/20 11:25 BP 146/93 H 12/23/20 11:25 Pulse Ox 96 12/23/20 11:25 Allergies Allergy/AdvReac Type Severity Reaction Status Date / Time No Known Allergies Allergy Mild Verified 12/23/20 11:09 Home Medications Medication Instructions Recorded Confirmed Type tadalafil 20 mg tablet 20 mg PO DAILY PRN #18 tablet 03/14/20 12/23/20 Rx escitalopram oxalate 20 mg tablet 20 mg PO DAILY #90 tablet 05/03/20 12/23/20 Rx atorvastatin 20 mg PO DAILY 07/25/20 12/23/20 History irbesartan 150 mg PO DAILY 07/25/20 12/23/20 History omeprazole 40 mg capsule,delayed 40 mg PO DAILY #90 cap 08/09/20 12/23/20 Rx release Patient hx anesthesia problems: none Family hx anesthesia problems: none Results Review: All pre-operative results and documents have been reviewed as part of the pre-operative evaluation. [facility] Past Medical History Medical History Anxiety Erectile dysfunction Hyperlipidemia LDL goal <130 Hypertension Obesity (BMI 30-39.9) Obstructive sleep apnea Surgical History Surgical History History of foot surgery History of inguinal hernia repair at age 7 History of laparoscopic appendectomy 07/26/20 Family History Family History Mother Diabetes mellitus Family history of gout Grandparent Diabetes mellitus Family history of malignant neoplasm Father Family history of chronic obstructive pulmonary disease Family history of congestive heart failure Social History Social History Social History: The patient lives at home with his , Beverly. He does not have a durable Healthcare power of manager mutual fund, and wishes that his Beverly make any decisions for him if he becomes unable to make decisions himself. Smoking packs per day: 0.5 Smoking cigarettes per day: 10.0 Years smoked: 2 Smoking pack-years: 1.00 Smoking status: Former smoker Smoking end date: 02/18/97 Alcohol intake: current Drinks per week: 7 Alcohol use details: RARE, ON WEEKENDS Substance use: never Substance use type: does not use Living arrangements: with family Additional occupation/education comments: Works at [employer] Gender identity (if verbalized by the patient): Male Sexual Orientation (if Verbalized by the Patient): Straight or Heterosexual Spiritual care concerns: No Anes - Eval Final PreProcedure Day of Procedure 12/23/20 11:43 Patient weight: obese Heart: regular rate and rhythm Lungs: clear to auscultation Airway: Mallampati scale class II Neurological: alert and oriented Last oral intake: >/= 8 hours ASA classification: III Emergent: no Anesthetic plan: proceed Anesthesia type and monitoring: general ETT and standard monitoring Results Review: All pre-operative results and documents have been reviewed as part of the pre-operative evaluation. Informed Consent: The patient's anesthetic plan and its attendant risks and benefits were discussed with the patient/family/POA. Questions were solicited and answers provided to the satisfaction of the patient/family/POA.
[2020-12-23] MEDS: OXYMETAZOLINE HCL 0.05% NAS 15 ML BTL (*BKC) 1 SPRAY XX (13:43)
[2020-12-23 13:55] VITALS: BP 140/90; PULSE 94; RESP 15; TEMP 36.4; O2SAT 94
--- NOTE | 2020-12-23 14:01 | W.PM.PROC2 ---
Procedure Note - Detailed Date of Procedure 12/23/20 Pre-op Diagnosis malformation of tongue left-sided tongue base edema /lesion Post-op Diagnosis same Procedure Performed direct laryngoscopy with biopsy of tongue Surgeon Blade Deluca MD [employer]eral Limousine Driver None Anesthesia general Indications see above Findings mildly hypertrophied left side base of tongue normal non sinister appearance likely lingual tonsil Description of Procedure the patient was correctly identified consent verified in the preoperative holding area. Patient brought to OR. Anesthesia induced endotracheal tube secured the midline. Patient prepped and draped for the aforementioned procedure. Time-out performed. Maxillary tooth mouth guard placed. Dedo laryngoscope utilized to view the base of tongue. Vallecula piriform sinuses tonsillar tonsils and tonsillar region examined no other sinister appearing lesion. Left hypertrophied tongue base which had the appearance of lingual tonsil was biopsied. Hemostasis achieved using the application of Afrin-soaked pledgets. Afrin-soaked pledgets removed no further bleeding noted scant blood suctioned. Laryngoscope removed no bleeding noted in airway. Maxillary tooth mouth guard removed. Laryngoscope and all hardware removed. All dentition intact. Care the patient was turned over to Anesthesiology. I performed all dictated portions of the procedure. Blood loss 0 cc. Estimated Blood Loss 0 Drains No Packing No Pathology yes Complications No immediate complications Condition stable Disposition PACU
[2020-12-23 14:10] VITALS: BP 122/98; PULSE 71; RESP 10; O2SAT 99
[2020-12-23 14:29] VITALS: BP 133/90; PULSE 67; RESP 10; O2SAT 97
[2020-12-23] MEDS: fentaNYL CITRATE INJ (*CRX) 100 MCG/2 ML VIAL 25 MCG IV PUSH ×2 (14:34→14:36)
[2020-12-23 14:50] VITALS: BP 118/75; PULSE 63
[2020-12-23] MEDS: oxyCODONE HCL (*CRX) 5 MG TAB IR PO (15:08)
[2020-12-23 15:20] VITALS: BP 123/78; PULSE 61
== END 2020-12-23 15:45 | disposition home or self-care (01) ==
PROVIDERS: PCP Internal Medicine; Visit Provider Otolaryngology
PROC: 0CJS8ZZ Inspection of Larynx, Via Natural or Artificial Opening Endoscopic (ICD-10-PCS; CPT 31535; principal; 2020-12-23 12:45)
DX: K14.8 Other diseases of tongue (principal); F41.9 Anxiety disorder, unspecified; I10 Essential (primary) hypertension; E78.5 Hyperlipidemia, unspecified; G47.33 Obstructive sleep apnea (adult) (pediatric); Z87.891 Personal history of nicotine dependence; E66.9 Obesity, unspecified; Z68.32 Body mass index [BMI] 32.0-32.9, adult
CPT/HCPCS: 31535; 88305; A9270; J0330; J1100; J2250; J2405; J2704; J3010; J7120

== ENCOUNTER 2021-11-06 00:39 | Day surgery (SDC) | payer BC, SELFPAY ==
[2021-10-31 10:07] VITALS: BMI 32.7
--- NOTE | 2021-10-31 10:39 | PC.NURSE ---
Report to the Outpatient Waiting Room, entrance under the green pavilion located off [facility], at time 1130 on date 11/06/2021. OR Time: 1330. Time changes happen often and if your time is changed the preop area will call you the afternoon before. - You and your visitor will be asked to self-screen and do not enter if you have any COVID symptoms. - Only one visitor and NO children visitors are allowed at this time. - The patient visitor is requested to leave or wait in car when not with patient due to restrictions. - A mask is required within the hospital. Patients may have clear liquids (water, carbonated beverages, clear teas, apple juice) until 3 hours prior to surgery with a maximum of 20 ounces 1030. - No food from midnight until time of surgery - Infants may have breast milk until 4 hours before surgery, infant formula 6 hours prior to surgery. - Children will be allowed to drink immediately following surgery. If applicable, please bring a bottle or sippy cup to assist with drinking. Juice, water, soda, and popsicles are readily available. For infants on formula, please bring formula the day of surgery. Pacifiers are allowed. Take the following medications with a SIP of water the morning of surgery: lexapro Medications to discontinue per physician atorvastatin, irbesartan, omeprazole, tadalafil Date to take last dose 11/05/2021 Please no make-up, nail tuvaluan, hairspray, perfume, deodorant, or body powder the day of surgery. No jewelry (including any body piercings) or valuables the day of surgery, leave them at home. Please take a shower or bath the night before, or the morning of, surgery with an antibacterial soap. Wear comfortable, loose fitting clothing. Children are encouraged to wear pajamas. - Jewelry must be removed prior to entering the operating room. Rings and piercings that are not removed may be cut off. - The hospital will not accept responsibility for valuables. - Please leave all valuables, including medications, at home the day of surgery. If you are going home after surgery, a licensed route delivery driver must drive you home. - NO public transportation without another adult. - We recommend that an adult stay with you for 24 hours following discharge. - We also recommend that you do not drive, make important decision, drink alcoholic beverages, or take any drugs that were not prescribed by your health care provider for at least 24 hours after your discharge time. For Pediatric surgeries, we recommend two adults accompany the child home (only one inside the building at this time). Follow any additional instructions given to you from your surgeon. If you or anyone in your household have experienced Covid symptoms in the past week, please notify your surgeon or the nurse liaison at the phone number below for possible testing. Telephone instructions given to Werner Mendoza and asked if any additional questions and then verbalized understanding. Patient advised to call surgeon office or pre surgery nurse liaison [phone] if any additional questions.
[2021-11-06] VITALS (9 sets, daily range): BP systolic 117–140; BP diastolic 73–93; PULSE 64–86; RESP 10–18; TEMP 36.4–37; O2SAT 92–98
--- NOTE | 2021-11-06 11:52 | WPDANESEPPF ---
Anes - Initial Pre Proc Eval Procedure: Operation Date: 11/06/21 13:30 Proposed Procedures p Open Umbilical Hernia Repair with Mesh - Melba Ornelas MD Date/Time: 11/06/21 11:52 Surgeon: Melba Ornelas MD Pre Op Diagnosis: Umb Hernia Patient Data Age: 46 Gender: M Height: 2.01 m Weight: 131.8 kg Allergies Allergy/AdvReac Type Severity Reaction Status Date / Time No Known Allergies Allergy Mild Verified 10/31/21 10:04 Home Medications Medication Instructions Recorded Confirmed Type atorvastatin 20 mg tablet 20 mg PO DAILY #90 tabs 04/06/21 10/31/21 Rx irbesartan 150 mg tablet 150 mg PO DAILY #90 tabs 04/06/21 10/31/21 Rx omeprazole 40 mg capsule,delayed 40 mg PO DAILY #90 caps 07/10/21 10/31/21 Rx release tadalafil 20 mg tablet (Cialis) 20 mg PO DAILY PRN sexual activity 07/26/21 10/31/21 Rx #18 tabs escitalopram oxalate 20 mg tablet 20 mg PO DAILY #90 tabs 08/31/21 10/31/21 Rx (Lexapro) Patient hx anesthesia problems: none Family hx anesthesia problems: none Results Review: All pre-operative results and documents have been reviewed as part of the pre-operative evaluation. [facility] Past Medical History Medical History Anxiety Erectile dysfunction Hyperlipidemia LDL goal <130 Hypertension Kidney stones Obesity (BMI 30-39.9) Obstructive sleep apnea Surgical History Surgical History History of foot surgery History of inguinal hernia repair at age 7 History of laparoscopic appendectomy 07/26/20 Family History Family History Mother Diabetes mellitus Family history of gout Hypertension Grandparent Diabetes mellitus Family history of malignant neoplasm Father , age 68 Family history of chronic obstructive pulmonary disease Family history of congestive heart failure Lung cancer Social History Social History Social History: The patient lives at home with his , Beverly. 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 Smoking packs per day: 0.5 Smoking cigarettes per day: 10.0 Years smoked: 0.5 Smoking pack-years: 0.25 Smoking status: Former smoker Tobacco type: cigarettes Second hand tobacco smoke exposure: No Smoking end date: 08/18/21 Alcohol intake: current Drinks per week: 2 Alcohol use details: beer/bourbon Substance use: never Substance use type: does not use Living arrangements: with family Additional occupation/education comments: Works at [employer] Gender identity (if verbalized by the patient): Female Sexual Orientation (if Verbalized by the Patient): Straight or Heterosexual Spiritual care concerns: No Anes - Eval Final PreProcedure Day of Procedure 11/06/21 11:52 Patient weight: obese Heart: regular rate and rhythm Lungs: clear to auscultation Airway: Mallampati scale class II Neurological: alert and oriented Last oral intake: >/= 8 hours ASA classification: III Emergent: no Anesthetic plan: proceed Anesthesia type and monitoring: general LMA and standard monitoring Results Review: All pre-operative results and documents have been reviewed as part of the pre-operative evaluation. Informed Consent: The patient's anesthetic plan and its attendant risks and benefits were discussed with the patient/family/POA. Questions were solicited and answers provided to the satisfaction of the patient/family/POA.
[2021-11-06] MEDS: ACETAMINOPHEN 500 MG TABLET 1000 MG PO (12:03)
[2021-11-06] MEDS: KETOROLAC 15 MG/ML VIAL (*BKC) IV PUSH (12:04)
[2021-11-06] MEDS: LACTATED RINGERS 1,000 ML 30 ML IV CONT ×2 (12:09→14:07)
--- NOTE | 2021-11-06 12:22 | WPDHPUPDATE1 ---
History and Physical Update Update Date/Time: 11/06/21 12:22 History and Physical has been reviewed, including an updated exam of the patient. There are NO changes in the patient's condition. Risks, benefits, and alternatives have been discussed and questions answered. Patient agrees to proceed with procedure.
--- NOTE | 2021-11-06 12:23 | PM.IMHP ---
H&P: HPI History of Present Illness Date/Time: 11/06/21 12:23 Chief Complaint: umbilical hernia Narrative: Werner is a 46 y/o male who presents to the office accompanied by his at the request of Dr. Burch for evaluation of an umbilical bulge. Patient states this bulge has been present for the past 3 years. He reports a gradual increase in size. He does experience occasional pain with his daily activities. He states the bulge is reducible. He denies any problems with BM's. Review of Systems Review of Systems: All systems reviewed & are unremarkable except as noted in HPI and below PMFSH Past Medical History Medical History Anxiety Erectile dysfunction Hyperlipidemia LDL goal <130 Hypertension Kidney stones Obesity (BMI 30-39.9) Obstructive sleep apnea Surgical History Surgical History History of foot surgery History of inguinal hernia repair at age 7 History of laparoscopic appendectomy 07/26/20 Family History Family History Mother Diabetes mellitus Family history of gout Hypertension Grandparent Diabetes mellitus Family history of malignant neoplasm Father , age 68 Family history of chronic obstructive pulmonary disease Family history of congestive heart failure Lung cancer Social History Social History Social History: The patient lives at home with his , Beverly. 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 Smoking packs per day: 0.5 Smoking cigarettes per day: 10.0 Years smoked: 0.5 Smoking pack-years: 0.25 Smoking status: Former smoker Tobacco type: cigarettes Second hand tobacco smoke exposure: No Smoking end date: 08/18/21 Alcohol intake: current Drinks per week: 2 Alcohol use details: beer/bourbon Substance use: never Substance use type: does not use Living arrangements: with family Additional occupation/education comments: Works at [employer] Gender identity (if verbalized by the patient): Female Sexual Orientation (if Verbalized by the Patient): Straight or Heterosexual Spiritual care concerns: No Meds Home Medications and Allergies Home Medications Medication Instructions Recorded Confirmed Type atorvastatin 20 mg tablet 20 mg PO DAILY #90 tabs 04/06/21 10/31/21 Rx irbesartan 150 mg tablet 150 mg PO DAILY #90 tabs 04/06/21 10/31/21 Rx omeprazole 40 mg capsule,delayed 40 mg PO DAILY #90 caps 07/10/21 10/31/21 Rx release tadalafil 20 mg tablet (Cialis) 20 mg PO DAILY PRN sexual activity 07/26/21 10/31/21 Rx #18 tabs escitalopram oxalate 20 mg tablet 20 mg PO DAILY #90 tabs 08/31/21 10/31/21 Rx (Lexapro) docusate sodium 100 mg capsule 100 mg PO BID #30 caps 11/06/21 Rx (Colace) hydrocodone 5 mg-acetaminophen 325 1 tablet PO Q6H PRN pain #30 tabs 11/06/21 Rx mg tablet Allergies Allergy/AdvReac Type Severity Reaction Status Date / Time No Known Allergies Allergy Mild Verified 10/31/21 10:04 Exam Const: General: cooperative, healthy appearing, comfortable and no acute distress Nutritional Appearance: obese Orientation/consciousness: patient oriented x3 Resp: Auscultation: clear to auscultation bilaterally Cardio: Rate: regular rate Rhythm: regular rhythm GI: Inspection: normal to inspection GI Palp: Yes abdominal tenderness, Yes Soft to palpation, Yes Tenderness to palpation present (GI), No Guarding due to palpation present (GI), No Rigid due to palpation and Yes Hernia present Other: moderate sized UH reducible, mild TTP Assessment and Plan Assessment and plan (1) Umbilical hernia: Qualifiers: Obstruction and gangrene presence: without obstructio
[2021-11-06] MEDS: ceFAZolin 3 GM/D5W 100 ML 100 ML IVPB (12:42)
[2021-11-06] MEDS: BUPIVACAINE/EPINEPHRINE 0.25% 50 ML VIAL 30 ML INFILTRATE (13:06)
--- NOTE | 2021-11-06 13:35 | W.PM.PROC2 ---
Procedure Note - Detailed Date of Procedure 11/06/21 Pre-op Diagnosis Umbilical Hernia Post-op Diagnosis Other (umbilical and incisional hernia) Procedure Performed repair of incisional and umbilical hernia with mesh Surgeon Melba Ornelas MD Anesthesia General Indications 38 y/o M c umbilical hernia over multiple years slowly enlarging and becoming more symptomatic Findings moderate sized infraumbilical incisional hernia and smaller umbilical hernia Description of Procedure The patient was taken to the operating room placed in the supine position. After adequate induction of general anesthesia, the patient was prepped and draped in the normal sterile fashion. A time-out was then done to verify the patient's identity, as well as the procedure being performed. I began by localizing the area around the umbilicus. I then made a curvilinear incision in the infraumbilical fold. This was taken down to level fascia. I then was able to bluntly dissect around the umbilicus. I then carefully dissected the umbilicus off the underlying fascia. I then noted a moderate defect with incarcerated omentum and an adjacent loop of small intestine. This was in the infraumbilical area likely incisional from his previous appendectomy. I was able to mobilize the incarcerated tissue and reduce it back into the abdominal cavity. This left an approximately 2 cm defect. There was a smaller umbilical hernia superiorly. This was also dissected and the omentum and preperitoneal fat were both reduced back into the peritoneal cavity. This was about a 1 cm defect. There was a small fascial bridge between the two defects. I went ahead and excised the bridge effectively combining the defects. I then cleared the fascia both anteriorly and posteriorly to allow placement of the mest. I then placed a 6.4 cm round piece of ventralex mesh in the underlay position. This was noted to have good, wide local coverage of the defect. The mesh was sutured in with interrupted 0 Ethibond suture. I then closed this defect primarily with interrupted 0 Ethibond suture over the underlay mesh repair. I then reapproximated the umbilicus to the fascia with a 3 0 Vicryl U-stitch. The subcutaneous tissue was then closed with 3 0 Vicryl suture. The skin was closed with 4 0 Monocryl subcuticular suture. Dermabond was then placed on the wound. The patient tolerated the procedure well was extubated in the operating room postop. She will be transferred to the recovery room in stable condition. Implants 6.4 cm ventralex mesh in underlay position Estimated Blood Loss 5 Drains No Packing No Pathology None sent Complications No immediate complications Condition Stable Disposition PACU [facility] Billing Surgery - Charge Forward: Surgery Billing
[2021-11-06] MEDS: fentaNYL CITRATE INJ (*CRX) 100 MCG/2 ML VIAL 25 MCG IV PUSH ×8 (13:53→14:37)
[2021-11-06] MEDS: oxyCODONE HCL (*CRX) 5 MG TAB IR PO (15:16)
== END 2021-11-06 15:45 | disposition home or self-care (01) ==
PROVIDERS: PCP Internal Medicine; Visit Provider Surgery
PROC: (CPT 49561; principal; 2021-11-06 13:30)
DX: K43.0 Incisional hernia with obstruction, without gangrene (principal); K42.9 Umbilical hernia without obstruction or gangrene; I10 Essential (primary) hypertension; E78.5 Hyperlipidemia, unspecified; G47.33 Obstructive sleep apnea (adult) (pediatric); N52.9 Male erectile dysfunction, unspecified; E66.9 Obesity, unspecified; Z68.33 Body mass index [BMI] 33.0-33.9, adult; Z87.891 Personal history of nicotine dependence
CPT/HCPCS: 49561; 49568; A9270; C1781; J0690; J1100; J1885; J2250; J2405; J2704; J3010; J7120

== ENCOUNTER 2021-11-27 08:11 | Outpatient (CLI) | payer BC, SELFPAY ==
[2021-11-27 18:59] LABS: Alanine Aminotransferase 31 U/L (6-50); Albumin Level 4.3 g/dL (3.5-5.1); Alkaline Phosphatase 67 U/L (38-126); Anion Gap 10 mmol/L (8-16); Aspartate Amino Transferase 79 U/L (17-59); Bilirubin,Total 0.8 mg/dL (0.2-1.3); Blood Urea Nitrogen 18 mg/dL (9-20); Calcium 9.1 mg/dL (8.4-10.2); Carbon Dioxide 26 mmol/L (22-30); Chloride 105 mmol/L (98-107); Cholesterol 187 mg/dL (0-200); Estimated Glomerular Filt Rate > 60; Glucose 93 mg/dL (65-110); HDL Direct 33 mg/dL; Potassium 4.3 mmol/L (3.4-5.0); Sodium 141 mmol/L (137-145); Triglycerides 259 mg/dL (<150)
[2021-11-27 19:10] LABS: LDL Cholesterol Direct 100 mg/dL
[2021-11-27 20:32] LABS: Vitamin D 25 Hydroxy 41.5 ng/mL
[2021-11-30 19:34] LABS: Testosterone Free 72.5 pg/mL (35.0-155.0); Testosterone Total 465 ng/dL (250-1100)
== END 2021-11-27 08:12 | disposition home or self-care (01) ==
PROVIDERS: PCP Family Medicine; Visit Provider Family Medicine
DX: R53.83 Other fatigue (principal); E78.5 Hyperlipidemia, unspecified; I10 Essential (primary) hypertension
CPT/HCPCS: 36415; 80053; 80061; 82306; 84402; 84403

== ENCOUNTER → 2022-05-09 15:31 | Outpatient (CLI) | payer BC, SELFPAY ==
--- NOTE | ~2022-05-09 | US_ITS ---
Thyroid ultrasound. Clinical History: Goiter Findings: Real-time sonography of the thyroid gland was performed. The right lobe measures 5.2 x 1.6 x 2.1 cm. The left lobe measures 4.4 x 1.7 x 2.0 cm. The isthmus is 4 mm in AP diameter. No thyroid nodule identified. Impression: Unremarkable exam. No thyroid nodule identified.. Reviewed, dictated and finalized at location . Impression: Unremarkable exam. No thyroid nodule identified..
--- NOTE | ~2022-05-09 | XR_ITS ---
EXAMINATION: XR chest 2V Exam Date/Time: 05/09/2022 15:34 CDT HISTORY: Abnormal breath sounds Comparison: 01/01/2008. RESULT: Lines, tubes, and devices: None. Lungs and pleura: Clear. Cardiomediastinal silhouette: Stable. Other: No acute osseous or upper abdominal finding. IMPRESSION: No acute cardiopulmonary process. Reviewed, dictated and finalized at location K.
== END ==
PROVIDERS: PCP Family Medicine; Visit Provider Internal Medicine Endocrinology, Diabetes & Metabolism
DX: E04.9 Nontoxic goiter, unspecified (principal); R09.89 Other specified symptoms and signs involving the circulatory and respiratory systems
CPT/HCPCS: 71046; 76536

== ENCOUNTER 2024-02-06 08:02 | Outpatient (CLI) | payer BC, SELFPAY ==
[2024-02-06 12:34] LABS: Basophils Absolute Auto 0.1 K/mm3 (0.0-0.1); Basophils Percent Auto 1.2 % (0.2-1.2); Eosinophils Absolute Auto 0.1 K/mm3 (0-0.3); Hematocrit 48.3 % (42.0-52.0); Immature Granulocyte Absolute 0.04 K/mm3 (0.00-0.031); Immature Granulocyte Percent A 0.8 % (0-0.5); Lymphocytes Absolute Auto 1.75 K/mm3 (0.9-3.2); Lymphocytes Percent Auto 35.7 % (18.3-44.2); Mean Corpuscular HGB Conc 33.1 g/dl (32-36); Mean Corpuscular Hemoglobin 31.3 pg (26-34); Mean Corpuscular Volume 94.5 fl (80-100); Mean Platelet Volume 10.4 fl (7.4-10.4); Monocytes Absolute Auto 0.5 K/mm3 (0.1-0.6); Monocytes Percent Auto 10.4 % (2.6-8.5); Neutrophils Absolute Auto 2.4 K/mm3 (1.3-6.7); Neutrophils Percent Auto 49.9 % (45.5-73.1); Platelet Count Result 210 k/mm3 (150-375); Red Blood Count 5.11 M/mm3 (4.6-6.20); Red Cell Distribution Width 12.5 % (11.5-14.5); White Blood Count 4.9 K/mm3 (4.5-10.0)
[2024-02-06 13:07] LABS: Alanine Aminotransferase 21 U/L (6-50); Albumin Level 4.4 g/dL (3.5-5.1); Alkaline Phosphatase 54 U/L (38-126); Anion Gap 5 mmol/L (4-12); Aspartate Amino Transferase 64 U/L (17-59); Bilirubin,Total 1.2 mg/dL (0.2-1.3); Blood Urea Nitrogen 16 mg/dL (9-20); Calcium 9.3 mg/dL (8.4-10.2); Carbon Dioxide 28 mmol/L (22-30); Chloride 106 mmol/L (98-107); Cholesterol 152 mg/dL (0-200); Estimated Glomerular Filt Rate > 60; Glucose 94 mg/dL (65-110); HDL Direct 35 mg/dL; Potassium 4.5 mmol/L (3.4-5.0); Sodium 139 mmol/L (137-145); Triglycerides 150 mg/dL (<150)
[2024-02-06 13:14] LABS: Vitamin D 25 Hydroxy 57.7 ng/mL
[2024-02-06 13:18] LABS: LDL Cholesterol Direct 77 mg/dL
[2024-02-06 14:22] LABS: Folic Acid > 20.0 ng/mL (2.76->20)
== END 2024-02-06 08:03 | disposition home or self-care (01) ==
LOC: ANHGOSHLAB 08:03
PROVIDERS: PCP Family Medicine; Visit Provider Family Medicine
DX: Z13.228 Encounter for screening for other metabolic disorders (principal); Z13.29 Encounter for screening for other suspected endocrine disorder; Z13.220 Encounter for screening for lipoid disorders; R53.83 Other fatigue; E55.9 Vitamin D deficiency, unspecified
CPT/HCPCS: 36415; 80053; 80061; 82306; 82607; 82746; 84402; 84403; 84443; 85025

== ENCOUNTER 2024-04-10 08:50 | Outpatient (CLI) | payer BC, SELFPAY ==
[2024-04-10 14:56] LABS: Hematocrit 50.5 % (42.0-52.0); Hemoglobin 16.5 g/dL (14.0-18.0)
[2024-04-10 16:11] LABS: Alanine Aminotransferase 35 U/L (6-50); Albumin Level 4.3 g/dL (3.5-5.1); Alkaline Phosphatase 58 U/L (38-126); Anion Gap 7 mmol/L (4-12); Aspartate Amino Transferase 56 U/L (17-59); Bilirubin,Total 1.5 mg/dL (0.2-1.3); Blood Urea Nitrogen 15 mg/dL (9-20); Calcium 8.9 mg/dL (8.4-10.2); Carbon Dioxide 30 mmol/L (22-30); Chloride 103 mmol/L (98-107); Cholesterol 129 mg/dL (0-200); Estimated Glomerular Filt Rate > 60; Glucose 92 mg/dL (65-110); HDL Direct 33 mg/dL; Potassium 4.1 mmol/L (3.4-5.0); Sodium 140 mmol/L (137-145); Triglycerides 102 mg/dL (<150)
[2024-04-10 16:28] LABS: LDL Cholesterol Direct 69 mg/dL
[2024-04-10 16:40] LABS: Prostate Specific Antigen 1.3 ng/mL (< OR = 4.0); Thyroid Stimulating Hormone 0.782 uIU/mL (0.465-4.680)
[2024-04-14 19:49] LABS: Estrogen 312 pg/mL (< OR = 404)
[2024-04-16 01:44] LABS: LH 0.6 mIU/mL (1.5-9.3); Sex Hormone Binding Globulin 28 nmol/L (10-50)
== END 2024-04-10 08:51 | disposition home or self-care (01) ==
LOC: ANHGOSHLAB 08:56
PROVIDERS: PCP Family Medicine
DX: E29.1 Testicular hypofunction (principal); E66.9 Obesity, unspecified
CPT/HCPCS: 36415; 80053; 80061; 82672; 83001; 83002; 84153; 84270; 84402; 84403; 84443; 85014; 85018; G0103

== ENCOUNTER 2024-05-15 11:46 | Outpatient (CLI) | payer BC, SELFPAY ==
--- OUTSIDE RECORDS SUMMARY | 2024-05-15 12:33 | XMS_ITS | Data Portability ---
Author Organization [facility] [employer], Main Office Address [address] [place] [address] Assessment No assessment recorded. Plan of Treatment Reminders Order Date Submit Date Provider Last Modified By Organization Details Last Modified Time Details Appointments None recorded. Lab lh + FSH, serum 2022 023 [employer] [facility], [address], [place], [address], 3 16:25:59 estradiol, serum 2022 023 [employer] [facility], [address], [place], [address], 3 16:25:57 PSA, serum or plasma 2022 023 [facility], [address], [place], [address], 3 16:25:58 prolactin, serum 2022 023 [employer] [facility], [address], [place], [address], 3 16:25:56 igf-1 (insulin-li ke growth factor), serum 2022 023 [employer] [facility], [address], [place], [address], 3 16:25:54 CBC w/ auto diff 2022 023 [employer] [facility], [address], [place], [address], 3 16:25:55 TSH + free T4, serum 2022 023 [facility], [address], [place], [address], 3 16:26:00 vitamin B12 + folate, serum or blood 2022 023 [employer], [address], [place], [address], 3 16:25:59 CMP, serum or plasma 2022 023 [facility], [address], [place], [address], 3 16:25:53 thyroid peroxidase (tpo) Ab, serum 2022 023 [facility], [address], [place], [address], 3 16:25:56 testosteron e, free + total, serum 2022 023 [facility], [address], [place], [address], 3 16:25:52 iron + TIBC + ferritin, serum 2022 023 [facility], [address], [place], [address], 3 16:25:51 Referral None recorded. Procedures None recorded. Surgeries None recorded. Imaging US, thyroid 2022 023 [facility], [address], [address], [place], [address], 07:28:41 XR, chest, 2 view 2022 023 [facility] [address], [address] [address], [place], [address], 17:25:27 Medication Orders None recorded. Patient TargetsNo targets recorded. Patient InstructionsNo instructions recorded. Reason for Referral None Reported. Results Created Date Observation Date Name Description Value Unit Range Abnormal Flag Note LastModifiedBy Organization Detail LastModifiedTime 05/05/1905/10/2022 IRON, TIBC AND SERGEY TIN PANEL iron, total 66 mcg/d L 50-180 normal Not Available [address], [address], 05/10/2022 16:25:51 05/05/1905/10/2022 IRON, TIBC AND SERGEY TIN PANEL iron binding capacity 308 mcg/d L_(ca lc) 250-42 5 normal Not Available [address] [address] [place], [address], 05/10/2022 16:25:51 05/05/1905/10/2022 IRON, TIBC AND SERGEY TIN PANEL % saturation 21 %_(ca lc) 20-48 normal Not Available [address], [address], 05/10/2022 16:25:51 05/05/1905/10/2022 IRON, TIBC AND SERGEY TIN PANEL ferritin 72 NG/mL 38-380 normal Not Available [address] [place], [address], 05/10/2022 16:25:51 05/05/1905/10/2022 TESTO STERO NE, FREE, BIOAV AILAB LE AND TOTAL , MS albumin 4.4 g/dL 3.6-5. 1 Not Available [address] [place], [address], 05/10/2022 16:25:52 05/05/1905/10/2022 TESTO STERO NE, FREE, BIOAV AILAB LE AND TOTAL , MS sex hormone binding globulin 33.3 nmol/ L 10-[address] [facility] [address] [place], [address], 05/10/2022 16:25:52 05/05/1905/10/2022 TESTO STERO NE, FREE, BIOAV AILAB LE AND TOTAL , MS testosterone , free 62.2 pg/mL 46.0-[address] [facility] [address] [place], [address], 05/10/2022 16:25:52 05/05/1905/10/2022 TESTO STERO NE, FREE, BIOAV AILAB LE AND TOTAL , MS testosterone ,bioavailabl e 125.2 NG/dL 110.0- 575.0 Not Available [address] [address] [place], [address], 05/10/2022 16:25:52 05/05/1905/10/2022 TESTO STERO NE, FREE, BIOAV AILAB LE AND TOTAL , MS testosterone , total, MS 466 NG/dL 250-11 00 For addit ional radhar erik christianson e refer to https ://ed ucati on.qu estdi [employer] com/f aq/FA Q165 (This link is being provi ded for infor dianne nal/e ducat ional purpo ses only. ) (Note ) This test was devel oped and its alec tical perfo rmanc e deep cteri stics have been deter mined by [employer]. It has not been clear ed or appro jaime by the FDA. This assay has been valid ated pursu ant to the CLIA regul ation s and is used for clini yair purpo ses. MARYSE perez n [address] [facility] [address] [place] [address] [phone] Umesh zaragoza MD Not Available [address] [address] [place], [address], 05/10/2022 16:25:52 05/05/1905/10/2022 COMPR EHENS SUSIE METAB OLIC PANEL glucose 105 mg/dL 65-139 normal Non-f astin g refer ence inter hussain Not Available [address] [address] [place], [address], 05/10/2022 16:25:53 05/05/1905/10/2022 COMPR EHENS SUSIE METAB OLIC PANEL urea nitrogen (BUN) 19 mg/dL 7-25 normal Not Available [address], [address], 05/10/2022 16:25:53 05/05/1905/10/2022 COMPR EHENS SUSIE METAB OLIC PANEL creatinine 1.08 mg/dL 0.60-1 .29 normal Not Available [address] [address] [place], [address], 05/10/2022 16:25:53 05/05/1905/10/2022 COMPR EHENS SUSIE METAB OLIC PANEL eGFR 87 mL/mi n/1.7 3m2 > or = 60 normal The eGFR is based on the CKD-E PI 2020 equat ion. To calcu late the new eGFR from a previ ous Creat inine or Cysta tin C resul t, go to https ://jane robles.o atif/melissa ni s/ kdoqi /gfr% 5Fcal culat or Not Available [address] [address] [place], [address], 05/10/2022 16:25:53 05/05/1905/10/2022 COMPR EHENS SUSIE METAB OLIC PANEL BUN/creatini ne ratio NOT APPLIC ABLE (calc ) 6-22 Not Available [address] [address] [place], [address], 05/10/2022 16:25:53 05/05/19 23 05/10/2022 COMPR EHENS SUSIE METAB OLIC PANEL sodium 137 mmol/ L 135-14 6 normal Not Available [address], [address], 05/10/2022 16:25:53 05/05/19 23 05/10/2022 COMPR EHENS SUSIE METAB OLIC PANEL potassium 4.1 mmol/ L 3.5-5. 3 normal Not Available [address], [address], 05/10/2022 16:25:53 05/05/1905/10/2022 COMPR EHENS SUSIE METAB OLIC PANEL chloride 105 mmol/ L 98-110 normal Not Available [address], [address], 05/10/2022 16:25:53 05/05/19 23 05/10/2022 COMPR EHENS SUSIE METAB OLIC PANEL carbon dioxide 26 mmol/ L 20-32 normal Not Available [address], [address], 05/10/2022 16:25:53 05/05/19 23 05/10/2022 COMPR EHENS SUSIE METAB OLIC PANEL calcium 9.5 mg/dL 8.6-10 .3 normal Not Available [address], [address], 05/10/2022 16:25:53 05/05/19 23 05/10/2022 COMPR EHENS SUSIE METAB OLIC PANEL protein, total 6.8 g/dL 6.1-8. 1 normal Not Available [address], [address], 05/10/2022 16:25:53 05/05/19 23 05/10/2022 COMPR EHENS SUSIE METAB OLIC PANEL albumin 4.5 g/dL 3.6-5. 1 normal Not Available [facility] [address] [place], [address], 05/10/2022 16:25:53 05/05/19 23 05/10/2022 COMPR EHENS SUSIE METAB OLIC PANEL globulin 2.3 g/dL_ (calc ) 1.9-3. 7 normal Not Available [address] [address] [place], [address], 05/10/2022 16:25:53 05/05/19 23 05/10/2022 COMPR EHENS SUSIE METAB OLIC PANEL albumin/glob ulin ratio 2.0 (calc ) 1.0-2. 5 normal Not Available [address] [address] [place], [address], 05/10/2022 16:25:53 05/05/19 23 05/10/2022 COMPR EHENS SUSIE METAB OLIC PANEL bilirubin, total 1.0 mg/dL 0.2-1. 2 normal Not Available [address] [address] [place], [address], 05/10/2022 16:25:53 05/05/19 23 05/10/2022 COMPR EHENS SUSIE METAB OLIC PANEL alkaline phosphatase 52 U/L 36-130 normal Not Available [address] [address] [place], [address], 05/10/2022 16:25:53 05/05/19 23 05/10/2022 COMPR EHENS SUSIE METAB OLIC PANEL AST 19 U/L 10-40 normal Not Available [address] [address] [place], [address], 05/10/2022 16:25:53 05/05/19 23 05/10/2022 COMPR EHENS SUSIE METAB OLIC PANEL ALT 24 U/L 9-46 normal Not Available [address] [address] [place], [address], 05/10/2022 16:25:53 05/05/1905/10/2022 IGF 1, LC/MS igf 1, lc/MS 176 NG/mL 52-328 Not Available [address], [address], 05/10/2022 16:25:54 05/05/1905/10/2022 IGF 1, LC/MS Z score (male) 0.5 SD -2.0 - +2.0 This test was devel parul and its alec tical perfo rmanc e deep cteri stics have been deter mined by [facility] prashanth Tomas . It has not been clear ed or appro jaime by FDA. This assay has been valid ated pursu ant to the CLIA regul ation s and is used for clini yair purpo ses. Not Available [employer] [address], [address], 05/10/2022 16:25:54 05/05/1905/10/2022 CBC (INCL UDES DIFF/ PLT) white blood cell count 4.9 thous and/u L 3.8-10 .8 normal Not Available [employer] [address], [address], 05/10/2022 16:25:55 05/05/1905/10/2022 CBC (INCL UDES DIFF/ PLT) red blood cell count 5.67 jad on/uL 4.20-5 .80 normal Not Available [employer] [address], [address], 05/10/2022 16:25:55 05/05/1905/10/2022 CBC (INCL UDES DIFF/ PLT) hemoglobin 17.2 g/dL 13.2-1 7.1 high Not Available [employer] [address], [address], 05/10/2022 16:25:55 05/05/19 23 05/10/2022 CBC (INCL UDES DIFF/ PLT) hematocrit 49.8 % 38.5-5 0.0 normal Not Available [address], [address], 05/10/2022 16:25:55 05/05/1905/10/2022 CBC (INCL UDES DIFF/ PLT) MCV 87.8 fL 80.0-1 00.0 normal Not Available [address], [address], 05/10/2022 16:25:55 05/05/1905/10/2022 CBC (INCL UDES DIFF/ PLT) MCH 30.3 pg 27.0-3 3.0 normal Not Available [address], [address], 05/10/2022 16:25:55 05/05/1905/10/2022 CBC (INCL UDES DIFF/ PLT) MCHC 34.5 g/dL 32.0-3 6.0 normal Not Available [address], [address], 05/10/2022 16:25:55 05/05/19 23 05/10/2022 CBC (INCL UDES DIFF/ PLT) RDW 13.4 % 11.0-1 5.0 normal Not Available [address], [address], 05/10/2022 16:25:55 05/05/1905/10/2022 CBC (INCL UDES DIFF/ PLT) platelet count 210 thous and/u L 140-40 0 normal Not Available [address], [address], 05/10/2022 16:25:55 05/05/1905/10/2022 CBC (INCL UDES DIFF/ PLT) MPV 11.1 fL 7.5-12 .5 normal Not Available [address], [address], 05/10/2022 16:25:55 05/05/1905/10/2022 CBC (INCL UDES DIFF/ PLT) absolute neutrophils 2602 cells /uL 1500-7 800 normal Not Available [address], [address], 05/10/2022 16:25:55 05/05/19 23 05/10/2022 CBC (INCL UDES DIFF/ PLT) absolute lymphocytes 1602 cells /uL 850-39 00 normal Not Available [address], [address], 05/10/2022 16:25:55 05/05/1905/10/2022 CBC (INCL UDES DIFF/ PLT) absolute monocytes 544 cells /uL 200-95 0 normal Not Available [address], [address], 05/10/2022 16:25:55 05/05/19 23 05/10/2022 CBC (INCL UDES DIFF/ PLT) absolute eosinophils 103 cells /uL 15-500 normal Not Available [address], [address], 05/10/2022 16:25:55 05/05/1905/10/2022 CBC (INCL UDES DIFF/ PLT) absolute basophils 49 cells /uL 0-200 normal Not Available [address], [address], 05/10/2022 16:25:55 05/05/19 23 05/10/2022 CBC (INCL UDES DIFF/ PLT) neutrophils 53.1 % normal Not Available [address], [address], 05/10/2022 16:25:55 05/05/19 23 05/10/2022 CBC (INCL UDES DIFF/ PLT) lymphocytes 32.7 % normal Not Available [address], [address], 05/10/2022 16:25:55 05/05/1905/10/2022 CBC (INCL UDES DIFF/ PLT) monocytes 11.1 % normal Not Available [address], [address], 05/10/2022 16:25:55 05/05/19 23 05/10/2022 CBC (INCL UDES DIFF/ PLT) eosinophils 2.1 % normal Not Available [facility] [address], [address], 05/10/2022 16:25:55 05/05/19 23 05/10/2022 CBC (INCL UDES DIFF/ PLT) basophils 1.0 % normal Not Available [address], [address], 05/10/2022 16:25:55 05/05/1905/10/2022 THYRO ID PEROX IDASE ANTIB ODIES thyroid peroxidase antibodies 3 IU/mL <9 normal Not Available [address], [address], 05/10/2022 16:25:55 05/05/1905/10/2022 PROLA CTIN prolactin 7.0 NG/mL 2.0-18 .0 normal Not Available [address], [address], 05/10/2022 16:25:56 05/05/1905/10/2022 ESTRA DIOL estradiol 21 pg/mL < or = 39 normal Refer ence range estab lishe d on post- puber piedad patie nt popul ation . No pre-p ubert al refer ence range estab lishe d using this assay . For any patie nts for whom low Estra diol level s are antic ipate d (e.g. males , pre-p ubert al child jose and hypog onada l/pos t-men opaus al femal es), the [facility] t[facility] Estra diol, Ultra sensi tive, LCMSM S assay is recom chauncey d (orde r code 61686 ). Erik layne note: patie nts being treat ed with the drug fulve stran t (Fasl odex( R)) have demon strat ed signi fican t inter feren ce in immun oassa y metho ds for estra diol measu remen t. The cross react ivity could lead to false ly eleva catherine estra diol test resul ts leadi ng to an inapp ropri ate clini yair asses sment of estro gen statu s. [facility] order code [id number] -Estr adiol , Ultra sensi tive LC/MS /MS demon strat es negli gible cross react ivity with fulve stran t. Not Available [facility] [address] [place], [address], 05/10/2022 16:25:57 05/05/1905/10/2022 PSA, TOTAL PSA, total 0.39 NG/mL < or = 4.00 normal The total PSA value from this assay syste m is stand ardiz ed again st the WHO stand jennifer. The test resul t will be appro ximat azeb 20% lower when jose red to the equim olar- stand ardiz ed total PSA (Heard man Coult er). Jose rison of seria l PSA resul ts shoul d be inter prete d with this fact in mind. This test was perfo rmed using the [employer] chemi lumin escen t metho d. Value s obtai jose from diffe rent assay metho ds canno t be used inter samuels eably . PSA level s, regar dless of value , shoul d not be inter prete d as absol [place] evide nce of the prese nce or absen ce of disea se. Not Available [facility] [address] [place], [address], 05/10/2022 16:25:58 05/05/1905/10/2022 VITAM IN B12/F OLATE , SERUM PANEL vitamin B12 369 pg/mL 200-11 00 normal Pleas e Note: Altho ugh the refer ence range for vitam in B12 is 200-1 100 pg/mL , it has been repor catherine that betwe en 5 and 10% of patie nts with value s betwe en 200 and 400 pg/mL may exper ience neuro psych iatri c and hemat ologi c abnor malit ies due to occul t B12 defic iency ; less than 1% of patie nts with value s above 400 pg/mL will have sympt oms. Not Available [facility] [address] [place], [address], 05/10/2022 16:25:59 05/05/1905/10/2022 VITAM IN B12/F OLATE , SERUM PANEL folate, serum 18.2 NG/mL normal Refer ence Range Low: <3.4 Borde rline : 3.4-5 .4 Flaquita l: >5.4 Not Available [facility] [address] [address] [place], [address], 05/10/2022 16:25:59 05/05/1905/10/2022 FSH AND LH FSH 4.9 mIU/m L 1.6-8. 0 normal Not Available [facility] [address] [address] [place], [address], 05/10/2022 16:25:59 05/05/1905/10/2022 FSH AND LH LH 3.7 mIU/m L 1.5-9. 3 normal Not Available [facility] [address] [address] [place], [address], 05/10/2022 16:25:59 05/05/1905/10/2022 TSH+F REE T4 TSH 1.34 mIU/L 0.40-4 .50 normal Not Available [facility] [address] [place], [address], 05/10/2022 16:26:00 05/05/19 23 05/10/2022 TSH+F REE T4 T4, free 0.9 NG/dL 0.8-1. 8 normal Not Available [facility] [address] [address] , [place], [address], 05/10/2022 16:26:00 05/10/19 23 05/09/2022 XR, chest , 2 view No observ ation record ed. [id number], [place], [address], 05/14/2022 14:16:24 05/11/19 23 05/09/2022 US, thyro id No observ ation record ed. [id number] [facility] [address], [place], [address], 05/14/2022 14:16:25 Result Notes None recorded. Problems Name Problem SNOMED Code Status Onset Date Resolution Date Notes Provider Name and Address Organization Details Recorded Time Acute sinusitis 84359287 Active Not Available [facility] 3 14:48:57 Essential hypertension 14673256 Active Not Available [facility] 3 14:48:57 Fatigue 59319135 Active 2022 MD Raquel Hampton, [address], [place], [address] , [employer] [facility] [employer] 3 16:51:04 Testosterone level below reference range 090209186 Active 2022 MD Raquel Hampton [address], [place], [address] , [employer] [facility] [employer] 3 16:51:40 Abnormal breath sounds 169290809 Active 2022 MD Ra[address], [place], [address] , [employer] [facility] [employer] [facility] 3 16:55:04 Goiter 6509411 Active 2022 MD Raquel Hampton [address], [place], [address] , [facility], [facility] 3 16:55:33 Impaired fasting glycemia 898234324 Active 2022 Lore Rivera MD [address] [facility], [address] [address], [place], [address] , [facility], [facility] 3 14:22:36 Vitamin B12 deficiency (non anemic) 16254769 Active 2022 Lore Rivera MD [address] [facility], [facility] [address], [place], [address] , [facility], [place] [employer] [facility] 3 14:22:59 Problem Notes None recorded. Procedures Surgical History Date Name Laterality Status Provider Name and Address Organization Details Recorded Time Appendectomy completed Michelle Chow [facility] [employer] [facility] 05/02/2022 16:36:30 Hernia Repair completed Michelle Chow [facility] [employer] [facility] 05/02/2022 16:36:37 Imaging Results Imaging Date Name Status LastModified by Organiz ation Details LastModified Time 05/09/2022 XR, chest, 2 view completed [address] [place] [address], [address], 05/14/2022 14:16:24 05/09/2022 US, thyroid completed [address], [address], 05/14/2022 14:16:25 Procedure Notes None recorded. Medical Equipment None Reported. Allergies No known drug allergies Medications Name Sig Start Date Stop Date Status Note LastModified by Organization Details LastModified Time atorvastati n 20 mg tablet active Not Available Not Available Not Available azithromyci n 250 mg tablet Take 6 tablets every day by oral route. 05/02 completed Not Available Not Available Not Available hydrocodone 5 mg-acetamin ophen 325 mg tablet TAKE 1 TABLET BY MOUTH EVERY 6 HOURS NEEDED FOR PAIN 05/02 completed Not Available Not Available Not Available prednisone 20 mg tablet TK 2 TS PO QD FOR 5 DAYS 05/02 completed Not Available Not Available Not Available Toprol XL 50 mg tablet,exte nded release active Not Available Not Available Not Available Insulin Syringe MicroFine 1 mL 27 gauge x 5/8 inject B12 SQ weekly x 90 days 2022 active Not Available Not Available Not Avai lable omeprazole 40 mg capsule,del ayed release active Not Available Not Available Not Available amoxicillin 875 mg tablet TK 1 T PO Q 12 H FOR 10 DAYS 05/02 completed Not Available Not Available Not Available benzonatate 100 mg capsule TK 1 C PO Q 8 H PRN 05/02 completed Not Available Not Available Not Available cyanocobala min (vit B-12) 1,000 mcg/mL injection solution Inject 1 mL every week by subcutane ous route in the morning for 90 days 2022 active Not Available Not Available Not Avai lable docusate sodium 100 mg capsule TAKE 1 CAPSULE BY MOUTH TWICE DAILY 05/02 completed Not Available Not Available Not Available hydrocodone 5 mg-acetamin ophen 500 mg tablet active Not Available Not Available No t Available irbesartan 150 mg tablet active Not Available Not Available Not Available metformin ER 500 mg tablet,exte nded release 24 hr TAKE 1 TABLET BY MOUTH ONCE DAILY WITH SUPPER active Not Available Not Available No t Available naproxen 500 mg tablet TAKE 1 TABLET BY MOUTH TWICE DAILY WITH FOOD. 05/02 completed Not Available Not Available Not Available escitalopra m 20 mg tablet active Not Available Not Available Not Available cyclobenzap rine 5 mg tablet TAKE 1 TABLET BY MOUTH EVERY 8 HOURS. active Not Available Not Available No t Available tadalafil 20 mg tablet TAKE 1 TABLET BY MOUTH ONCE DAILY NEEDED FOR SEXUAL ACTIVITY. ADMINISTE R APPROXIMA TELY 30 MINUTES BEFORE SEXUAL ACTIVITY, DO NOT USE MORE THAN 1 DOSE PER 24 HOURS. active Not Available Not Available No t Available venlafaxine ER 75 mg tablet,exte nded release 24 hr TAKE 1 TABLET BY MOUTH DAILY active Not Available Not Available No t Available BD Veo Insulin Syringe Ultra-Fine 1 mL 31 gauge x 15/64 INJECT B12 ONCE WEEKLY FOR 90 DAYS active Not Available Not Available No t Available Vitals Date Recorded Body weight Body height Body mass index (BMI) Body temperature Heart rate Systolic blood pressure Diastolic blood pressure Provider Name and Address Organization Details Last Updated DateTime 3 892112. 49 g 200.66 cm 31.1 kg/m2 97.6 [degF] 88 /min 140 mm[Hg] 82 mm[Hg] Michelle Chow CMA [place] [facility] [employer] 16:30:54 Social History Question Answer Notes LastModified by Organizat ion Details LastModified Time Tobacco Smoking Status Never Smoker Michelle Chow CMA null, [place] [facility] [employer] 05/02/2022 16:34:43 What Is Your Level Of Alcohol Consumption? 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 Mental Status None recorded. Family History Relationship Description Onset Age of this Age Resolved Age Notes LastModified by Organization Details LastModified Time Father Family history of malignant neoplasm [email or web address] Not available 05/02 16:34:19 Medical History Condition Response DEPRESSION (INCLUDING POST ) Y HYPERTENSION Y HIGH CHOLESTEROL / HYPERLIPIDEMIA Y Past Encounters Encounter ID Performer Location Encounter Start Date Encounter Closed Date Diagnosis/Indication Diagnosis SNOMED-CT Code Diagnosis ICD10 Code Diagnosis Note [id number] Lore Rivera MD [facility] [address] [place] [address] 05/02/2022 16:21:58 05/02/2022 17:31:00 Fatigue 77641571 R53.83 Will send for thyroid antibodies to screen for autoimmune thyroid disease in addition to CBC, CMP, ferritin, repeat testostero ne and B12/folate to screen for other potential secondary causes of fatigue. Testostero ne level below reference range 871587005 R79.89 Send for full hormone panel as patient having increase breast tissue and discomfort of breasts, more fatigue, heat/cold intoleranc e and difficulty with libido and weight gain. Abnormal b reath sounds 506114015 R09.89 Send for CXR as he has positive egophony in left mid lung-per patient he had covid issues in 2019 and a spot was found on his lungs- hasn't had imaging in close to 2 years now. Goiter [id number] E04.9 Will send for baseline thyroid ultrasound as he does have a palpable thyroid and repeat thyroid function panel to assess function. Spent up to 45 minutes preparing to see the patient (eg, review of tests), obtaining and/or reviewing separately obtained history, performing a medically appropriat e examinatio n and evaluation , counseling and educating the patient, ordering medication s, tests, along with documentin g clinical informatio n in the electronic health record, daysien yuriyy interpreti ng results and communicat ing results to the patient. RTC in 2-3 months. Patient was provided a handwritte n lab order which contains our fax number. If he chooses to go outside of the [facility] to obtain labwork he was advised to provide our fax number and my informatio n to the lab he will be obtaining labwork from in order to have his labs properly forwarded over for me to review so there is no loss of follow up due to use of outside network. He was also advised to contact our clinic informing us that he has completed his labwork so we are aware we will need to reach out to the appropriat e laboratory to request his results be forwarded to us so I might have the ability to review and make further medical decision making in his case. He voiced understand ing. Thank you for this consultati on. Health Concerns Section Related Observation LastModified by Organization Detai ls LastModified Time None Recorded Concern Status LastModified by Organization Details LastModified Time None Recorded Advance Directives Directive None Recorded Payers Encounter Date Sequence Insurance Name Policy Number Policy Marcum Covered Member ID Marcum Member ID Guarantor Name 05/02/2022 1 [facility]: (PPO) [id number] Werner Mendoza [id number] Werner Mendoza Notes Date Note Type Note Provider Name and Address Organization Details Recorded Time 05/02/2022 text/html 46 yo male comes in as referral by courtesy of by Dr. Ruiz for management and evaluation of fatigue, weight gain He is feeling more fatigue and feels drained most of the time. He has low mood/irritability and depression. He feels sex is not the same and he doesn't have motivation. He has some hair loss. He has DM in mother- who is borderline. He has no known thyroid disease. He has two daughters 20 and 17 years of age. labs from 12/09:testosteron e of 465 ng/dL Lore Rivera MD [address], [facility] [address], [place], [address], [place] - [facility] 05/02/2022 17:53:20
--- OUTSIDE RECORDS SUMMARY | 2024-05-15 12:33 | XMS_ITS | Continuity of Care Document ---
Author Organization [facility] Address [address] [place] [address] [address] [place] [address] Phone Care Team Providers Care Surface Grinder Name Role Phone Carmen Garcia Unavailable Unavailable Advance Directives Directive Yes / No Effective Date File Name No Information Encounters Encounter Description Practice Location Reason(s) For Visit Diagnoses Date Provider Providers Copied on Encounter [facility], [address], [place], [place], [id number], [place] tel:[phone] [place] No Information 4[address] Radha Morales. [address] [facility] , [address], [place], [address], [place]. tel:[phone] Family History Family Member Type Diagnosis Age At Onset No Information Payers Payer name Insurance type Covered green party ID Authoriza tion(s) No Information Social [...]
--- OUTSIDE RECORDS SUMMARY | 2024-05-15 12:33 | XMS_ITS | Referral Summary ---
Author Organization [facility] Address [address] [place] [address] Care Team Providers Care Director Dietetics Department Name Role Phone José Miguel Car MD Primary Care Provider [phone] Allergies No known active allergies Medications omeprazole (PriLOSEC) 40 mg capsule Take 1 capsule (40 mg total) by mouth daily Active atorvastatin (LIPITOR) 20 mg tablet Take 1 tablet (20 mg total) by mouth daily Active metoprolol XL (TOPROL-XL) 50 mg 24 hr tablet Take 1 tablet (50 mg total) by mouth daily Active zolpidem (AMBIEN) 10 mg tablet Take 1 tablet (10 mg total) by mouth nightly 4 Active venlafaxine 75 mg tablet extended release 24hr 24 hr tablet 4 Active tadalafiL (CIALIS) 20 mg tablet TAKE 1 TABLET BY MOUTH ONCE DAILY NEEDED FOR SEXUAL ACTIVITY. ADMINISTER APPROXIMATELY 30 MINUTES BEFORE. 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 Gender Identity Not on file Sexual Orientation Not on file Last Filed Vital Signs Vital Sign Reading Time Taken Comments Blood Pressure 131/92 2023 9:47 AM CDT Pulse 80 2023 9:47 AM CDT Temperature 36.8 C (98.3 F) 2023 9:47 AM CDT Respiratory Rate 20 2023 9:47 AM CDT Oxygen Saturation 98% 2023 9:47 AM CDT Inhaled Oxygen Concentration - - Weight 122.5 kg (270 lb) 2023 9:47 AM CDT Height 200.7 cm (6' 7) 2023 9:47 AM CDT Body Mass Index 30.42 2023 9:47 AM CDT Plan of Treatment Not on file Insurance [facility] PREFERRED ANTH ACCESS [facility] CHOICE OOS Care Teams Director Dietetics Department Relationship Specialty Start Date End Date José Miguel Car MD [address] [place] [address] PCP - General 04/02/18
--- OUTSIDE RECORDS SUMMARY | 2024-05-15 12:33 | XMS_ITS | Clinical Summary ---
Author Organization [facility] Address [address] [place] [address] Care Team Providers Care Dynamic Balancer Name Role Phone José Miguel Car MD Primary Care Provider [phone] Allergies No known active allergies Medications omeprazole [...] Active Active Problems No known active problems Surgical History Surgery Date Site/Laterality Comments INGUINAL HERNIA REPAIR FOOT SURGERY Medical History Medical History Date Comments Hypertension GERD (gastroesophageal reflux disease) Hyperlipidemia Anxiety Social History Tobacco Use Types Packs/Day Years Used Date Smoking Tobacco: Never Assessed Sex and Gender Information Value Date Recorded Sex Assigned at Not on file 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 Gender Identity Not on file Sexual Orientation Not on file Obstetrics History Last Filed Vital Signs Vital Sign Reading [...] 2023 9:47 AM CDT Plan of Treatment Health Maintenance Due Date Last Done Comments Colon Cancer Screening-Colonoscopy 1977 Depression Screening 1977 Hepatitis C Screening 1977 DTaP/Tdap/Td Vaccine (1 - Tdap) 1988 Hepatitis B Screening 07/03/1995 Regular Well Visit/Exam 18-64 07/03/1995 Covid-19 Vaccine ( season) 2023 01/01/2022, 01/06/2021, 07/07/2020, Additional history exists Influenza Vaccine (#1) 2023 01/01/2022 HPV Vaccines Aged Out No longer eligi ble based on patient's age to complete this topic Pneumococcal vaccine <65 Aged Out No longer eligible based on patient's age to complete this topic Insurance [facility] [employer] [place] [employer]UE [employer] CHOICE OOS Care Teams Dynamic Balancer Relationship Specialty Start Date End Date José Miguel Car MD [address] [place] [address] PCP - General 04/02/18
--- OUTSIDE RECORDS SUMMARY | 2024-05-15 12:33 | XMS_ITS | Clinical Summary ---
Author Organization [facility] Address [address] [place] [address] Phone Care Team Providers Care Furniture Sprayer Name Role Phone Stoney Randall MD Primary Care Provider [phone] [phone] Active Problems Problem Noted Date Diagnosed Date Adjustment disorder 06/27/2016 Immunizations Immunization Administration Dates Next Due Covid-19, Mrna, Lnp-s, PF, 5 0 mcg/0.25 mL dose (Moderna) 01/06/2021 Family History Relation Name Status Comments Father Alive Mother Alive Social History Tobacco Use Types Packs/Day Years Used Date Smoking Tobacco: Never Alcohol Use Standard Drinks/Week Comments Not Asked 0 (1 standard drink = 0.6 oz pur e alcohol) Sex and Gender Information Value Date Recorded Sex Assigned at Not on file Legal Sex Male 1:29 PM CDT Gender Identity Not on file Sexual Orientation Not on file Plan of Treatment Health Maintenance Due Date Last Done Comments Hepatitis C Virus (HCV) Screening 1977 TdaP Immunization 1977 Hepatitis B Immunization (1 of 3 - 19+ 3-dose series) 1996 Colonoscopy 2022 Colorectal Cancer Screening 2022 Influenza Immunization (#1) 2023 SARS-COV-2 Immunization ( season) 2023 01/06/2021, 07/07/2020, 06/03/2020 Respiratory Syncytial Virus (RSV) Immunization (Adult) (1 - 1-dose 75+ series) 2052 Meningococcal Immunization (ACWY) Aged Out No longer eligible b ased on patient's age to complete this topic Pneumococcal Immunization Combined Aged Out No longer eligible b ased on patient's age to complete this topic Rotavirus Immunization Aged Out No lo nger eligible based on patient's age to complete this topic Care Teams Furniture Sprayer Relationship Specialty Start Date End Date Stoney Randall MD [address] [address] PCP - General Family Medicine 06/27/16
[2024-05-15 18:52] LABS: Syphilis IgG/IgM Antibody Negative (Negative)
[2024-05-15 18:57] LABS: Hepatitis B Surface Antigen Negative (Negative)
[2024-05-15 19:07] LABS: HIV 1/2 Ab P24 Ag Result Negative (Negative)
[2024-05-15 19:14] LABS: Hepatitis C Virus Antibody Negative (Negative)
[2024-05-15 19:34] LABS: Chlamydia trachomatis NOT DETECTED (NOT DETECTE); Neisseria gonorrhoeae PCR NOT DETECTED (NOT DETECTE)
[2024-05-20 16:14] LABS: Herpes Simplex Type 1 DNA PCR Not Detected (Not Detected); Herpes Simplex Type 2 DNA PCR Not Detected (Not Detected)
== END 2024-05-15 11:47 | disposition home or self-care (01) ==
LOC: ANHGOSHLAB 11:48
PROVIDERS: PCP Nurse Practitioner; Visit Provider Nurse Practitioner
DX: Z20.828 Contact with and (suspected) exposure to other viral communicable diseases (principal); Z11.3 Encounter for screening for infections with a predominantly sexual mode of transmission
CPT/HCPCS: 36415; 86593; 86703; 86803; 87340; 87491; 87529; 87591; G0432

== ENCOUNTER 2024-07-14 07:53 | Outpatient (CLI) | payer BC, SELFPAY ==
--- OUTSIDE RECORDS SUMMARY | 2024-07-14 07:58 | XMS_ITS | Referral Summary ---
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
--- OUTSIDE RECORDS SUMMARY | 2024-07-14 07:58 | XMS_ITS | Clinical Summary ---
Author Organization [facility] Address [address] [place] [address] Phone Care Team Providers Care Press Shop Supervisor Name Role Phone Stoney Randall MD Primary Care Provider [phone] [phone] Active Problems Problem Noted Date Diagnosed Date [...] age to complete this topic Care Teams Press Shop Supervisor Relationship Specialty Start Date End Date Stoney Randall MD [address] [address] PCP - General Family Medicine 06/27/16
--- OUTSIDE RECORDS SUMMARY | 2024-07-14 07:59 | XMS_ITS | Clinical Summary ---
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 Gender Identity Not on file Sexual Orientation [...] 01/06/2021, 07/07/2020, Additional history exists Influenza Vaccine (Season Ended) 2024 01/01/2022 Pneumococcal vaccine <65 Aged Out No longer eligible based on patient's age to complete this topic Insurance [employer] P[employer] Member Subscriber Plan / Payer (Ef fective 2016-Present) Name:Werner Mckinnon Relation to Subscriber:Self Name:Werner Mckinnon Payer ID:[id number] (NA) Type:CYNDY MANZO Address: [facility] [address] [id number] [facility] ACC[facility] CHOICE OOS Care Teams Product Trainer Relationship Specialty Start Date End Date José Miguel Car MD [address] [place] [address] PCP - General 04/02/18
--- OUTSIDE RECORDS SUMMARY | 2024-07-14 07:59 | XMS_ITS | Data Portability ---
Author Organization [facility] [employer], Main Office Address [address] [place] [address] Assessment No assessment recorded. Plan of Treatment Reminders Order Date Submit Date Provider Last Modified By Organization Details Last Modified Time Details Appointments None recorded. Lab lh + FSH, serum 2022 023 Done. [facility], [address], [place], [address], 3 16:25:59 estradiol, serum 2022 023 Done. [facility], [address], [place], [address], 3 16:25:57 PSA, serum or plasma 2022 023 [email or web address] [facility], [address], [place], [address], 3 16:25:58 prolactin, serum 2022 023 Done. [facility], [address], [place], [address], 3 16:25:56 igf-1 (insulin-li ke growth factor), serum 2022 023 Done. [facility], [address], [place], [address], 3 16:25:54 CBC w/ auto diff 2022 023 Done. [facility], [address], [place], [address], 3 16:25:55 TSH + free T4, serum [address] [facility], [address], [place], [address], 3 16:26:00 vitamin B12 + folate, serum or blood [address] [facility], [address], [place], [address], 3 16:25:59 CMP, serum or plasma [address] [facility], [address], [place], [address], 3 16:25:53 thyroid peroxidase (tpo) Ab, serum [address] [facility], [address], [place], [address], 3 16:25:56 testosteron e, free + total, serum [address] [facility], [address], [place], [address], 3 16:25:52 iron + TIBC + ferritin, serum [address] [facility], [address], [place], [address], 3 16:25:51 Referral None recorded. Procedures None recorded. Surgeries None recorded. Imaging US, thyroid 2022 023 [facility], [address], [address], [place], [address], 07:28:41 XR, chest, 2 view 2022 023 [facility] [address], [address] [address], [place], [address], 17:25:27 Medication Orders None recorded. Patient TargetsNo targets recorded. Patient InstructionsNo instructions recorded. Reason for Referral None Reported. Results Created Date Observation Date Name Description Value Unit Range Abnormal Flag Note LastModifiedBy Organization Detail LastModifiedTime 05/05/1905/10/2022 IRON, TIBC AND SERGEY TIN PANEL iron, total 66 mcg/d L 50-180 normal Not Available [address], [address], 05/10/2022 16:25:51 05/05/1905/10/2022 IRON, TIBC AND SERGEY TIN PANEL iron binding capacity 308 mcg/d L_(ca lc) 250-42 5 normal Not Available [address] [address] [place], [address], 05/10/2022 16:25:51 05/05/1905/10/2022 IRON, TIBC AND SERGEY TIN PANEL % saturation 21 %_(ca lc) 20-48 normal Not Available [address], [address], 05/10/2022 16:25:51 05/05/1905/10/2022 IRON, TIBC AND SERGEY TIN PANEL ferritin 72 NG/mL 38-380 normal Not Available [address] [place], [address], 05/10/2022 16:25:51 05/05/1905/10/2022 TESTO STERO NE, FREE, BIOAV AILAB LE AND TOTAL , MS albumin 4.4 g/dL 3.6-5. 1 Not Available [address] [place], [address], 05/10/2022 16:25:52 05/05/1905/10/2022 TESTO STERO NE, FREE, BIOAV AILAB LE AND TOTAL , MS sex hormone binding globulin 33.3 nmol/ L 10-50 Not Available [facility] [address] [place], [address], 05/10/2022 16:25:52 05/05/1905/10/2022 TESTO STERO NE, FREE, BIOAV AILAB LE AND TOTAL , MS testosterone , free 62.2 pg/mL 46.0-2 24.0 Not Available [facility] [address] [place], [address], 05/10/2022 16:25:52 05/05/1905/10/2022 TESTO STERO NE, FREE, BIOAV AILAB LE AND TOTAL , MS testosterone ,bioavailabl e 125.2 NG/dL 110.0- 575.0 Not Available [address] [address] [place], [address], 05/10/2022 16:25:52 05/05/1905/10/2022 TESTO STERO NE, FREE, BIOAV AILAB LE AND TOTAL , MS testosterone , total, MS 466 NG/dL 250-11 00 For addit ional radhar erik christianson e refer to https ://ed ucati on.qu estdi [employer]s. com/f aq/FA Q165 (This link is being provi ded for infor dianne nal/e ducat ional purpo ses only. ) (Note ) This test was devel oped and its alec tical perfo rmanc e deep cteri stics have been deter mined by [employer]. It has not been clear ed or appro jaime by the FDA. This assay has been valid ated pursu ant to the CLIA regul ation s and is used for clini yair purpo ses. MARYSE perez n [address] [facility] [address] [place] [address] [phone] Umesh zaragoza MD Not Available [address] [address] [place], [address], 05/10/2022 16:25:52 05/05/1905/10/2022 COMPR EHENS SUSIE METAB OLIC PANEL glucose 105 mg/dL 65-139 normal Non-f astin g refer ence inter hussain Not Available [address] [address] [place], [address], 05/10/2022 16:25:53 05/05/1905/10/2022 COMPR EHENS SUSIE METAB OLIC PANEL urea nitrogen (BUN) 19 mg/dL 7-25 normal Not Available [address], [address], 05/10/2022 16:25:53 05/05/1905/10/2022 COMPR EHENS SUSIE METAB OLIC PANEL creatinine 1.08 mg/dL 0.60-1 .29 normal Not Available [address] [address] [place], [address], 05/10/2022 16:25:53 05/05/1905/10/2022 COMPR EHENS SUSIE METAB OLIC PANEL eGFR 87 mL/mi n/1.7 3m2 > or = 60 normal The eGFR is based on the CKD-E PI 2020 equat ion. To calcu late the new eGFR from a previ ous Creat inine or Cysta tin C resul t, go to https ://jane robles.o atif/melissa ni s/ kdoqi /gfr% 5Fcal culat or Not Available [address] [address] [place], [address], 05/10/2022 16:25:53 05/05/1905/10/2022 COMPR EHENS SUSIE METAB OLIC PANEL BUN/creatini ne ratio NOT APPLIC ABLE (calc ) 6-22 Not Available [address] [address] [place], [address], 05/10/2022 16:25:53 05/05/19 23 05/10/2022 COMPR EHENS SUSIE METAB OLIC PANEL sodium 137 mmol/ L 135-14 6 normal Not Available [address], [address], 05/10/2022 16:25:53 05/05/19 23 05/10/2022 COMPR EHENS SUSIE METAB OLIC PANEL potassium 4.1 mmol/ L 3.5-5. 3 normal Not Available [address], [address], 05/10/2022 16:25:53 05/05/1905/10/2022 COMPR EHENS SUSIE METAB OLIC PANEL chloride 105 mmol/ L 98-110 normal Not Available [address], [address], 05/10/2022 16:25:53 05/05/19 23 05/10/2022 COMPR EHENS SUSIE METAB OLIC PANEL carbon dioxide 26 mmol/ L 20-32 normal Not Available [address], [address], 05/10/2022 16:25:53 05/05/19 23 05/10/2022 COMPR EHENS SUSIE METAB OLIC PANEL calcium 9.5 mg/dL 8.6-10 .3 normal Not Available [address], [address], 05/10/2022 16:25:53 05/05/19 23 05/10/2022 COMPR EHENS SUSIE METAB OLIC PANEL protein, total 6.8 g/dL 6.1-8. 1 normal Not Available [address], [address], 05/10/2022 16:25:53 05/05/19 23 05/10/2022 COMPR EHENS SUSIE METAB OLIC PANEL albumin 4.5 g/dL 3.6-5. 1 normal Not Available [facility] [address] [place], [address], 05/10/2022 16:25:53 05/05/19 23 05/10/2022 COMPR EHENS SUSIE METAB OLIC PANEL globulin 2.3 g/dL_ (calc ) 1.9-3. 7 normal Not Available [address] [address] [place], [address], 05/10/2022 16:25:53 05/05/19 23 05/10/2022 COMPR EHENS SUSIE METAB OLIC PANEL albumin/glob ulin ratio 2.0 (calc ) 1.0-2. 5 normal Not Available [address] [address] [place], [address], 05/10/2022 16:25:53 05/05/19 23 05/10/2022 COMPR EHENS SUSIE METAB OLIC PANEL bilirubin, total 1.0 mg/dL 0.2-1. 2 normal Not Available [address] [address] [place], [address], 05/10/2022 16:25:53 05/05/19 23 05/10/2022 COMPR EHENS SUSIE METAB OLIC PANEL alkaline phosphatase 52 U/L 36-130 normal Not Available [address] [address] [place], [address], 05/10/2022 16:25:53 05/05/19 23 05/10/2022 COMPR EHENS SUSIE METAB OLIC PANEL AST 19 U/L 10-40 normal Not Available [address] [address] [place], [address], 05/10/2022 16:25:53 05/05/19 23 05/10/2022 COMPR EHENS SUSIE METAB OLIC PANEL ALT 24 U/L 9-46 normal Not Available [address] [address] [place], [address], 05/10/2022 16:25:53 05/05/1905/10/2022 IGF 1, LC/MS igf 1, lc/MS 176 NG/mL 52-328 Not Available [address], [address], 05/10/2022 16:25:54 05/05/1905/10/2022 IGF 1, LC/MS Z [...] for clini yair purpo ses. Not Available [facility] [address], [address], 05/10/2022 16:25:54 05/05/1905/10/2022 CBC (INCL UDES DIFF/ PLT) white blood cell count 4.9 thous and/u L 3.8-10 .8 normal Not Available [facility] [address], [address], 05/10/2022 16:25:55 05/05/1905/10/2022 CBC (INCL UDES DIFF/ PLT) red blood cell count 5.67 jad on/uL 4.20-5 .80 normal Not Available [facility] [address], [address], 05/10/2022 16:25:55 05/05/1905/10/2022 CBC (INCL UDES DIFF/ PLT) hemoglobin 17.2 g/dL 13.2-1 7.1 high Not Available [facility] [address], [address], 05/10/2022 16:25:55 05/05/19 23 05/10/2022 CBC (INCL UDES DIFF/ PLT) hematocrit 49.8 % 38.5-5 0.0 normal Not Available [address], [address], 05/10/2022 16:25:55 05/05/1905/10/2022 CBC (INCL UDES DIFF/ PLT) MCV 87.8 fL 80.0-1 00.0 normal Not Available [address], [address], 05/10/2022 16:25:55 05/05/1905/10/2022 CBC (INCL UDES DIFF/ PLT) MCH 30.3 pg 27.0-3 3.0 normal Not Available [address], [address], 05/10/2022 16:25:55 05/05/1905/10/2022 CBC (INCL UDES DIFF/ PLT) MCHC 34.5 g/dL 32.0-3 6.0 normal Not Available [address], [address], 05/10/2022 16:25:55 05/05/19 23 05/10/2022 CBC (INCL UDES DIFF/ PLT) RDW 13.4 % 11.0-1 5.0 normal Not Available [address], [address], 05/10/2022 16:25:55 05/05/1905/10/2022 CBC (INCL UDES DIFF/ PLT) platelet count 210 thous and/u L 140-40 0 normal Not Available [address], [address], 05/10/2022 16:25:55 05/05/1905/10/2022 CBC (INCL UDES DIFF/ PLT) MPV 11.1 fL 7.5-12 .5 normal Not Available [address], [address], 05/10/2022 16:25:55 05/05/1905/10/2022 CBC (INCL UDES DIFF/ PLT) absolute neutrophils 2602 cells /uL 1500-7 800 normal Not Available [address], [address], 05/10/2022 16:25:55 05/05/19 23 05/10/2022 CBC (INCL UDES DIFF/ PLT) absolute lymphocytes 1602 cells /uL 850-39 00 normal Not Available [address], [address], 05/10/2022 16:25:55 05/05/1905/10/2022 CBC (INCL UDES DIFF/ PLT) absolute monocytes 544 cells /uL 200-95 0 normal Not Available [address], [address], 05/10/2022 16:25:55 05/05/19 23 05/10/2022 CBC (INCL UDES DIFF/ PLT) absolute eosinophils 103 cells /uL 15-500 normal Not Available [address], [address], 05/10/2022 16:25:55 05/05/1905/10/2022 CBC (INCL UDES DIFF/ PLT) absolute basophils 49 cells /uL 0-200 normal Not Available [address], [address], 05/10/2022 16:25:55 05/05/19 23 05/10/2022 CBC (INCL UDES DIFF/ PLT) neutrophils 53.1 % normal Not Available [address], [address], 05/10/2022 16:25:55 05/05/19 23 05/10/2022 CBC (INCL UDES DIFF/ PLT) lymphocytes 32.7 % normal Not Available [address], [address], 05/10/2022 16:25:55 05/05/1905/10/2022 CBC (INCL UDES DIFF/ PLT) monocytes 11.1 % normal Not Available [address], [address], 05/10/2022 16:25:55 05/05/19 23 05/10/2022 CBC (INCL UDES DIFF/ PLT) eosinophils 2.1 % normal Not Available [facility] [address], [address], 05/10/2022 16:25:55 05/05/19 23 05/10/2022 CBC (INCL UDES DIFF/ PLT) basophils 1.0 % normal Not Available [address], [address], 05/10/2022 16:25:55 05/05/1905/10/2022 THYRO ID PEROX IDASE ANTIB ODIES thyroid peroxidase antibodies 3 IU/mL <9 normal Not Available [address], [address], 05/10/2022 16:25:55 05/05/1905/10/2022 PROLA CTIN prolactin 7.0 NG/mL 2.0-18 .0 normal Not Available [address], [address], 05/10/2022 16:25:56 05/05/1905/10/2022 ESTRA DIOL estradiol 21 [...] is recom chauncey d (orde r code 89611 ). Erik layne note: patie nts being [...] s. [facility] order code 13284 -Estr adiol , Ultra sensi tive LC/MS /MS demon strat es negli gible cross react ivity with fulve stran t. Not Available [facility] [address] [place], [address], 05/10/2022 16:25:57 05/05/1905/10/2022 PSA, TOTAL PSA, total [...] This test was perfo rmed using the Swivl chemi lumin escen t metho d. Value s obtai jose from diffe rent assay metho ds canno t be used inter samuels eably . PSA level s, regar dless of value , shoul d not be inter prete d as absol chevak evide nce of the prese nce or absen ce of disea se. Not Available [facility] [address] [place], [address], 05/10/2022 16:25:58 05/05/1905/10/2022 VITAM IN B12/F OLATE [...] pg/mL will have sympt oms. Not Available [facility] [address] [place], [address], 05/10/2022 16:25:59 05/05/1905/10/2022 VITAM IN B12/F OLATE , SERUM PANEL folate, serum 18.2 NG/mL normal Refer ence Range Low: <3.4 Borde rline : 3.4-5 .4 Flaquita l: >5.4 Not Available [facility] [address] [address] [place], [address], 05/10/2022 16:25:59 05/05/1905/10/2022 FSH AND LH FSH 4.9 mIU/m L 1.6-8. 0 normal Not Available [facility] [address] [address] [place], [address], 05/10/2022 16:25:59 05/05/1905/10/2022 FSH AND LH LH 3.7 mIU/m L 1.5-9. 3 normal Not Available [facility] [address] [address] [place], [address], 05/10/2022 16:25:59 05/05/1905/10/2022 TSH+F REE T4 TSH 1.34 mIU/L 0.40-4 .50 normal Not Available [facility] [address] [place], [address], 05/10/2022 16:26:00 05/05/19 23 05/10/2022 TSH+F REE T4 T4, free 0.9 NG/dL 0.8-1. 8 normal Not Available [facility] [address] [address] , [place], [address], 05/10/2022 16:26:00 05/10/19 23 05/09/2022 XR, chest , 2 view No observ ation record ed. [id number], [place], [address], 05/14/2022 14:16:24 05/11/19 23 05/09/2022 US, thyro id No observ ation record ed. [id number] [facility] [address], [place], [address], 05/14/2022 14:16:25 Result Notes None recorded. Problems Name Problem SNOMED Code Status Onset Date Resolution Date Notes Provider Name and Address Organization Details Recorded Time Acute sinusitis 35442116 Active Not Available [facility] 3 14:48:57 Essential hypertension 79907725 Active Not Available [facility] 3 14:48:57 Fatigue 43360898 Active 2022 MD Raquel Hampton, [address], [place], [address] , [facility] [employer] [facility] 3 16:51:04 Testosterone level below reference range 579740984 Active 2022 MD Raquel Hampton [address], [place], [address] , [facility] [employer] [facility] 3 16:51:40 Abnormal breath sounds 865871965 Active 2022 MD [address], [place], [address] , [facility] [employer] [facility] 3 16:55:04 Goiter 1366846 Active 2022 MD Raquel Hampton [address], [place], [address] , [facility] [employer] [facility] 3 16:55:33 Impaired fasting glycemia 545329670 Active 2022 Lore Rivera MD [address] [address], [place], [address] , [facility] [employer] [facility] 3 14:22:36 Vitamin B12 deficiency (non anemic) 27048554 Active 2022 Lore Rivera MD [address] [facility] [address], [place], [address] , [facility] [employer] [facility] 3 14:22:59 Problem Notes None recorded. Procedures Surgical History Date Name Laterality Status Provider Name and Address Organization Details Recorded Time Appendectomy completed Michelle Realins [facility] 05/02/2022 16:36:30 Hernia Repair completed Michelle Chow, [facility] [employer] [facility] 05/02/2022 16:36:37 Imaging Results None recorded. Procedure Notes None recorded. Medical Equipment None [...] index (BMI) Body temperature Heart rate Systolic And Diastolic Provider Name and Address Organization Details Last Updated DateTime 3 541302. 49 g 200.66 cm 31.1 kg/m2 97.6 [degF] 88 /min 140/82 mm[Hg] Michelle Chow C[facility] 3 16:30:54 Social History None recorded. Functional Status Question Answer Note LastModified by Organizat ion Details LastModified Time What is your level of alcohol consumption? 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 Family History Relationship Description Onset Age of this Age Resolved Age Notes LastModified by Organization Details LastModified Time Father Family history of malignant neoplasm [email or web address] Not available 05/02 16:34:19 Medical History Condition Response DEPRESSION (INCLUDING POST ) Y HYPERTENSION Y HIGH CHOLESTEROL / HYPERLIPIDEMIA Y Past Encounters Encounter ID Performer Location Encounter Start Date Encounter Closed Date Diagnosis/Indication Diagnosis SNOMED-CT Code Diagnosis ICD10 Code Diagnosis Note [id number] Lore Rivera MD [facility] [address] [place] [address] 05/02/2022 16:21:58 05/02/2022 17:31:00 Fatigue 52601121 R53.83 Will send for thyroid antibodies to screen for autoimmune thyroid disease in addition to CBC, CMP, ferritin, repeat testostero ne and B12/folate to screen for other potential secondary causes of fatigue. Testostero ne level below reference range 071592327 R79.89 Send for full hormone panel as patient having increase breast tissue and discomfort of breasts, more fatigue, heat/cold intoleranc e and difficulty with libido and weight gain. Abnormal b reath sounds 079288012 R09.89 Send for CXR as he has positive egophony in left mid lung-per patient he had covid issues in 2019 and a spot was found on his lungs- hasn't had imaging in close to 2 years now. Goiter 1915925 E04.9 Will send for baseline thyroid ultrasound [...] informatio n in the electronic health record, independen tly interpreti ng results and communicat ing results to the patient. RTC in 2-3 months. Patient was provided a handwritte n lab order which contains our fax number. If he chooses to go outside of the [facility] system to obtain labwork he was [...] Marcum Member ID Guarantor Name 05/02/2022 1 [employer] (O) [id number] Werner Mendoza [id number] Werner Mendoza Notes Date Note Type Note [...] of 465 ng/dL Lore Rivera MD [address] [facility] [address], [place], [address], [place] [facility] [place] [employer] [facility] 05/02/2022 17:53:20
[2024-07-14 11:19] LABS: Anion Gap 8 mmol/L (4-12); Blood Urea Nitrogen 15 mg/dL (9-20); Calcium 8.9 mg/dL (8.4-10.2); Carbon Dioxide 29 mmol/L (22-30); Chloride 102 mmol/L (98-107); Estimated Glomerular Filt Rate > 60; Glucose 96 mg/dL (65-110); Potassium 4.2 mmol/L (3.4-5.0); Sodium 139 mmol/L (137-145)
[2024-07-14 11:52] LABS: Syphilis IgG/IgM Antibody Negative (Negative)
[2024-07-14 12:01] LABS: HIV 1/2 Ab P24 Ag Result Negative (Negative); Hepatitis B Surface Antigen Negative (Negative)
[2024-07-14 12:14] LABS: Hepatitis C Virus Antibody Negative (Negative)
[2024-07-14 12:28] LABS: Chlamydia trachomatis NOT DETECTED (NOT DETECTE); Neisseria gonorrhoeae PCR NOT DETECTED (NOT DETECTE)
[2024-07-16 23:33] LABS: Herpes Simplex Type 1 DNA PCR Not Detected (Not Detected); Herpes Simplex Type 2 DNA PCR Not Detected (Not Detected)
== END 2024-07-14 07:54 | disposition home or self-care (01) ==
LOC: ANHGOSHLAB 07:57
PROVIDERS: PCP Nurse Practitioner; Visit Provider Nurse Practitioner
DX: Z11.3 Encounter for screening for infections with a predominantly sexual mode of transmission (principal); I10 Essential (primary) hypertension; Z72.89 Other problems related to lifestyle
CPT/HCPCS: 36415; 80048; 86593; 86703; 86803; 87340; 87491; 87529; 87591; G0432

== ENCOUNTER 2024-09-01 13:59 | Emergency (ER) | payer BC, SELFPAY ==
[2024-09-01] VITALS (15 sets, daily range): BP systolic 120–153; BP diastolic 83–104; PULSE 74–104; RESP 13–19; TEMP 36.7; O2SAT 94–96
--- NOTE | ~2024-09-01 | XR_ITS ---
XR chest 2V Ordering provider: Zaki Johansen MD History: 49 years Male with . Chest pain X1 WEEK . Comparison: May 09, 2022 FINDINGS: MEDIASTINUM: The cardiac silhouette is not enlarged. LUNGS: No infiltrates, effusions or pneumothorax. OTHER: No free air under the diaphragm. IMPRESSION: No acute cardiopulmonary pathology. Reviewed, dictated and finalized at location A.
--- NOTE | 2024-09-01 14:02 | ECG_ITS ---
Test Date: 2024-09-01 14:08:30 Measurements Intervals [place] Rate: 94 P: 49 DE: 156 QRS: -40 QRSD: 98 T: 86 QT: 336 QTc: 420 Interpretive Statements SINUS RHYTHM POSSIBLE LEFT ATRIAL ENLARGEMENT [-0.1mV P WAVE IN V1/V2] MARKED LEFT AXIS DEVIATION [QRS AXIS < -30] INCOMPLETE RIGHT BUNDLE BRANCH BLOCK [90+ ms QRS DURATION, TERMINAL R IN V1/V2, 40+ ms S IN I/aVL/V4/V5/V6] POSSIBLE LEFT VENTRICULAR HYPERTROPHY [VOLTAGE CRITERIA PLUS LAE OR QRS WIDENING] NONSPECIFIC T-WAVE ABNORMALITY No previous ECG available for comparison Electronically Signed On 09-02-2024 12:32:33 CDT by Lei Crump M.D.
--- OUTSIDE RECORDS SUMMARY | 2024-09-01 14:04 | XMS_ITS | Clinical Summary ---
Author Organization 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 [id number] [facility] CHOICE OOS Care Teams Field Mechanic Relationship Specialty Start Date End Date José Miguel Car MD [address] [place] [address] PCP - General 04/02/18
--- OUTSIDE RECORDS SUMMARY | 2024-09-01 14:04 | XMS_ITS | Referral Summary ---
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 CHOICE OOS Care Teams Senior Net Software Developer Relationship Specialty Start Date End Date José Miguel Car MD [address] [place] [address] PCP - General 04/02/18
--- OUTSIDE RECORDS SUMMARY | 2024-09-01 14:04 | XMS_ITS | Clinical Summary ---
Author Organization [facility] Address [address] [place] [address] Phone Care Team Providers Care Curer Foam Rubber Name Role Phone Stoney Randall MD Primary Care Provider [phone] Active Problems Problem Noted Date Diagnosed Date [...] age to complete this topic Care Teams Curer Foam Rubber Relationship Specialty Start Date End Date Stoney Randall MD [address] [address] PCP - General Family Medicine 06/27/16
--- OUTSIDE RECORDS SUMMARY | 2024-09-01 14:04 | XMS_ITS | Data Portability ---
Author Organization [facility] [employer], Main Office Address [address] [place] [address] Assessment No assessment recorded. Plan of Treatment Reminders Order Date Submit Date Provider Last Modified By Organization Details Last Modified Time Details Appointments None recorded. Lab lh + FSH, serum 2022 023 [facility], [address], [place], [address], 3 16:25:59 estradiol, serum 2022 023 [facility], [address], [place], [address], 3 16:25:57 PSA, serum or plasma 2022 023 [facility], [address], [place], [address], 3 16:25:58 prolactin, serum 2022 023 [facility], [address], [place], [address], 3 16:25:56 igf-1 (insulin-li ke growth factor), serum 2022 023 [facility], [address], [place], [address], 3 16:25:54 CBC w/ auto diff 2022 023 [facility], [address], [place], [address], 3 16:25:55 TSH + free T4, serum [address] [facility], [address], [place], [address], 3 16:26:00 vitamin B12 + folate, serum or blood [address] [facility], [address], [place], [address], 3 16:25:59 CMP, serum or plasma [address] [facility], [address], [place], [address], 3 16:25:53 thyroid peroxidase (tpo) Ab, serum [address] [facility], [address], [place], [address], 3 16:25:56 testosteron e, free + total, serum [address] [facility], [address], [place], [address], 3 16:25:52 iron + TIBC + ferritin, serum [address] [facility], [address], [place], [address], 3 16:25:51 Referral None recorded. Procedures None recorded. Surgeries None recorded. Imaging US, thyroid 2022 023 [facility], [address], [address] [address], [place], [address], 3 07:28:41 XR, chest, 2 view 2022 023 [facility], [address], [address] [address], [place], [address], 3 17:25:27 Medication Orders None recorded. Patient TargetsNo targets recorded. Patient InstructionsNo instructions recorded. Reason for Referral None Reported. Results Created Date Observation Date Name Description Value Unit Range Abnormal Flag Note LastModifiedBy Organization Detail LastModifiedTime 05/05/1905/10/2022 IRON, TIBC AND SERGEY TIN PANEL iron, total 66 mcg/d L 50-180 normal Not Available [address], [address], 05/10/2022 16:25:51 05/05/1905/10/2022 IRON, TIBC AND SERGEY TIN PANEL iron binding capacity 308 mcg/d L_(ca lc) 250-42 5 normal Not Available [address], [address], 05/10/2022 16:25:51 05/05/1905/10/2022 IRON, TIBC AND SERGEY TIN PANEL % saturation 21 %_(ca lc) 20-48 normal Not Available [address], [address], 05/10/2022 16:25:51 05/05/1905/10/2022 IRON, TIBC AND SERGEY TIN PANEL ferritin 72 NG/mL 38-380 normal Not Available [address], [address], 05/10/2022 16:25:51 05/05/1905/10/2022 TESTO STERO NE, FREE, BIOAV AILAB LE AND TOTAL , MS albumin 4.4 g/dL 3.6-5. 1 Not Available [address], [address], 05/10/2022 16:25:52 05/05/19 23 05/10/2022 TESTO STERO NE, FREE, BIOAV AILAB LE AND TOTAL , MS sex hormone binding globulin 33.3 nmol/ L 10-50 Not Available [address] [address] [place], [address], 05/10/2022 16:25:52 05/05/1905/10/2022 TESTO STERO NE, FREE, BIOAV AILAB LE AND TOTAL , MS testosterone , free 62.2 pg/mL 46.0-2 24.0 Not Available [address] [address] [place], [address], 05/10/2022 16:25:52 05/05/1905/10/2022 TESTO STERO NE, FREE, BIOAV AILAB LE AND TOTAL , MS testosterone ,bioavailabl e 125.2 NG/dL 110.0- 575.0 Not Available [address] [address] [place], [address], 05/10/2022 16:25:52 05/05/1905/10/2022 TESTO STERO NE, FREE, BIOAV AILAB LE AND TOTAL , MS testosterone , total, MS 466 NG/dL 250-11 00 For addit ional radhar erik christianson refer to https ://ed ucati on.qu karlie [employer]. QXL ricardo plc/f aq/FA Q165 (This link is being provi ded for infor dianne nal/e ducat ional purpo ses only. ) (Note ) This test was devel oped and its alec tical perfo rmanc e deep cteri stics have been deter mined by [facility]. It has not been clear ed or appro jaime by the FDA. This assay has been valid ated pursu ant to the CLIA regul ation s and is used for clini yair purpo ses. MARYSE perez n [address] [facility] [address] [facility] [address] [phone] Umesh zaragoza MD Not Available [address] [address] [place], [address], 05/10/2022 16:25:52 05/05/1905/10/2022 COMPR EHENS SUSIE METAB OLIC PANEL glucose 105 mg/dL 65-139 normal Non-f astin g refer ence inter hussain Not Available [address] [address] [place], [address], 05/10/2022 16:25:53 05/05/1905/10/2022 COMPR EHENS SUSIE METAB OLIC PANEL urea nitrogen (BUN) 19 mg/dL 7-25 normal Not Available [address] [address] [place], [address], 05/10/2022 16:25:53 05/05/1905/10/2022 COMPR EHENS SUSIE METAB OLIC PANEL creatinine 1.08 mg/dL 0.60-1 .29 normal Not Available [address] [address] [place], [address], 05/10/2022 16:25:53 05/05/1905/10/2022 COMPR EHENS SUSIE METAB OLIC PANEL eGFR 87 mL/mi n/1.7 3m2 > or = 60 normal The eGFR is based on the CKD-E PI 2020 equat ion. To calcu late the new eGFR from a previ ous Creat inine or Cysta tin C resul t, go to https ://jane w.kiesha robles.o atif/melissa ni s/ kdoqi /gfr% 5Fcal culat or Not Available [address] [address] [place], [address], 05/10/2022 16:25:53 05/05/1905/10/2022 COMPR EHENS SUSIE METAB OLIC PANEL BUN/creatini ne ratio NOT APPLIC ABLE (calc ) 6-22 Not Available [address] [address] [place], [address], 05/10/2022 16:25:53 05/05/19 23 05/10/2022 COMPR EHENS SUSIE METAB OLIC PANEL sodium 137 mmol/ L 135-14 6 normal Not Available [address], [address], 05/10/2022 16:25:53 05/05/19 23 05/10/2022 COMPR EHENS SUSIE METAB OLIC PANEL potassium 4.1 mmol/ L 3.5-5. 3 normal Not Available [address], [address], 05/10/2022 16:25:53 05/05/19 23 05/10/2022 COMPR EHENS SUSIE METAB OLIC PANEL chloride 105 mmol/ L 98-110 normal Not Available [address], [address], 05/10/2022 16:25:53 05/05/19 23 05/10/2022 COMPR EHENS SUSIE METAB OLIC PANEL carbon dioxide 26 mmol/ L 20-32 normal Not Available [address], [address], 05/10/2022 16:25:53 05/05/19 23 05/10/2022 COMPR EHENS SUSIE METAB OLIC PANEL calcium 9.5 mg/dL 8.6-10 .3 normal Not Available [address], [address], 05/10/2022 16:25:53 05/05/19 23 05/10/2022 COMPR EHENS SUSIE METAB OLIC PANEL protein, total 6.8 g/dL 6.1-8. 1 normal Not Available [address], [address], 05/10/2022 16:25:53 05/05/19 23 05/10/2022 COMPR EHENS SUSIE METAB OLIC PANEL albumin 4.5 g/dL 3.6-5. 1 normal Not Available [address] [address] [place], [address], 05/10/2022 16:25:53 05/05/19 23 05/10/2022 COMPR EHENS SUSIE METAB OLIC PANEL globulin 2.3 g/dL_ (calc ) 1.9-3. 7 normal Not Available [address], [address], 05/10/2022 16:25:53 05/05/19 23 05/10/2022 COMPR EHENS SUSIE METAB OLIC PANEL albumin/glob ulin ratio 2.0 (calc ) 1.0-2. 5 normal Not Available [address], [address], 05/10/2022 16:25:53 05/05/19 23 05/10/2022 COMPR EHENS SUSIE METAB OLIC PANEL bilirubin, total 1.0 mg/dL 0.2-1. 2 normal Not Available [address] [address] [place], [address], 05/10/2022 16:25:53 05/05/19 23 05/10/2022 COMPR EHENS SUSIE METAB OLIC PANEL alkaline phosphatase 52 U/L 36-130 normal Not Available [address] [address] [place], [address], 05/10/2022 16:25:53 05/05/19 23 05/10/2022 COMPR EHENS SUSIE METAB OLIC PANEL AST 19 U/L 10-40 normal Not Available [address], [address], 05/10/2022 16:25:53 05/05/19 23 05/10/2022 COMPR EHENS SUSIE METAB OLIC PANEL ALT 24 U/L 9-46 normal Not Available [address] [address] [place], [address], 05/10/2022 16:25:53 05/05/19 23 05/10/2022 IGF 1, LC/MS igf 1, lc/MS 176 NG/mL 52-328 Not Available [address], [address], 05/10/2022 16:25:54 05/05/1905/10/2022 IGF 1, LC/MS Z score (male) 0.5 SD -2.0 - +2.0 This test was devel oped and its alec tical perfo rmanc e deep cteri stics have been deter mined by [facility] . It has not been clear ed or appro jaime by FDA. This assay has been valid ated pursu ant to the CLIA regul ation s and is used for clini yair purpo ses. Not Available [facility] [address], [address], 05/10/2022 16:25:54 05/05/1905/10/2022 CBC (INCL UDES DIFF/ PLT) white blood cell count 4.9 thous and/u L 3.8-10 .8 normal Not Available [employer] [address], [address], 05/10/2022 16:25:55 05/05/19 23 05/10/2022 CBC (INCL UDES DIFF/ PLT) red blood cell count 5.67 jad on/uL 4.20-5 .80 normal Not Available [employer] [address], [address], 05/10/2022 16:25:55 05/05/19 23 05/10/2022 CBC (INCL UDES DIFF/ PLT) hemoglobin 17.2 g/dL 13.2-1 7.1 high Not Available [employer] [address], [address], 05/10/2022 16:25:55 05/05/1905/10/2022 CBC (INCL UDES DIFF/ PLT) hematocrit 49.8 % 38.5-5 0.0 normal Not Available [address], [address], 05/10/2022 16:25:55 05/05/1905/10/2022 CBC (INCL UDES DIFF/ PLT) MCV 87.8 fL 80.0-1 00.0 normal Not Available [address], [address], 05/10/2022 16:25:55 05/05/1905/10/2022 CBC (INCL UDES DIFF/ PLT) MCH 30.3 pg 27.0-3 3.0 normal Not Available [address], [address], 05/10/2022 16:25:55 05/05/1905/10/2022 CBC (INCL UDES DIFF/ PLT) MCHC 34.5 g/dL 32.0-3 6.0 normal Not Available [address], [address], 05/10/2022 16:25:55 05/05/19 23 05/10/2022 CBC (INCL UDES DIFF/ PLT) RDW 13.4 % 11.0-1 5.0 normal Not Available [address], [address], 05/10/2022 16:25:55 05/05/19 23 05/10/2022 CBC (INCL UDES DIFF/ PLT) platelet count 210 thous and/u L 140-40 0 normal Not Available [address], [address], 05/10/2022 16:25:55 05/05/1905/10/2022 CBC (INCL UDES DIFF/ PLT) MPV 11.1 fL 7.5-12 .5 normal Not Available [address] [place], [address], 05/10/2022 16:25:55 05/05/1905/10/2022 CBC (INCL UDES DIFF/ PLT) absolute neutrophils 2602 cells /uL 1500-7 800 normal Not Available [address], [address], 05/10/2022 16:25:55 05/05/19 23 05/10/2022 CBC (INCL UDES DIFF/ PLT) absolute lymphocytes 1602 cells /uL 850-39 00 normal Not Available [address], [address], 05/10/2022 16:25:55 05/05/1905/10/2022 CBC (INCL UDES DIFF/ PLT) absolute monocytes 544 cells /uL 200-95 0 normal Not Available [address], [address], 05/10/2022 16:25:55 05/05/19 23 05/10/2022 CBC (INCL UDES DIFF/ PLT) absolute eosinophils 103 cells /uL 15-500 normal Not Available [address], [address], 05/10/2022 16:25:55 05/05/1905/10/2022 CBC (INCL UDES DIFF/ PLT) absolute basophils 49 cells /uL 0-200 normal Not Available [address], [address], 05/10/2022 16:25:55 05/05/19 23 05/10/2022 CBC (INCL UDES DIFF/ PLT) neutrophils 53.1 % normal Not Available [address], [address], 05/10/2022 16:25:55 05/05/1905/10/2022 CBC (INCL UDES DIFF/ PLT) lymphocytes 32.7 % normal Not Available [address], [address], 05/10/2022 16:25:55 05/05/19 23 05/10/2022 CBC (INCL UDES DIFF/ PLT) monocytes 11.1 % normal Not Available [address], [address], 05/10/2022 16:25:55 05/05/19 23 05/10/2022 CBC (INCL UDES DIFF/ PLT) eosinophils 2.1 % normal Not Available [facility] [address], [address], 05/10/2022 16:25:55 05/05/19 23 05/10/2022 CBC (INCL UDES DIFF/ PLT) basophils 1.0 % normal Not Available [address], [address], 05/10/2022 16:25:55 05/05/19 23 05/10/2022 THYRO ID PEROX IDASE ANTIB ODIES thyroid peroxidase antibodies 3 IU/mL <9 normal Not Available [address], [address], 05/10/2022 16:25:55 05/05/1905/10/2022 PROLA CTIN prolactin 7.0 NG/mL 2.0-18 .0 normal Not Available [address], [address], 05/10/2022 16:25:56 05/05/1905/10/2022 ESTRA DIOL estradiol 21 [...] is recom chauncey d (orde r code 08714 ). Erik layne note: patie nts being [...] s. [facility] order code 42178 -Estr adiol , Ultra sensi tive LC/MS /MS demon strat es negli gible cross react ivity with fulve stran t. Not Available [employer] [facility] [address] [place], [address], 05/10/2022 16:25:57 05/05/1905/10/2022 PSA, TOTAL PSA, total [...] This test was perfo rmed using the Sieme ns chemi lumin escen t metho d. Value s obtai jose from diffe rent assay metho ds canno t be used inter samuels eably . PSA level s, regar dless of value , shoul d not be inter prete d as absol alex evide nce of the prese nce or absen ce of disea se. Not Available [facility] [address] [place], [address], 05/10/2022 16:25:58 05/05/1905/10/2022 VITAM IN B12/F OLATE [...] pg/mL will have sympt oms. Not Available [facility] [address], [address], 05/10/2022 16:25:59 05/05/1905/10/2022 VITAM IN B12/F OLATE , SERUM PANEL folate, serum 18.2 NG/mL normal Refer ence Range Low: <3.4 Borde rline : 3.4-5 .4 Flaquita l: >5.4 Not Available [facility] [address], [address], 05/10/2022 16:25:59 05/05/1905/10/2022 FSH AND LH FSH 4.9 mIU/m L 1.6-8. 0 normal Not Available [facility] [address] [place], [address], 05/10/2022 16:25:59 05/05/1905/10/2022 FSH AND LH LH 3.7 mIU/m L 1.5-9. 3 normal Not Available [facility] [address], [address], 05/10/2022 16:25:59 05/05/1905/10/2022 TSH+F REE T4 TSH 1.34 mIU/L 0.40-4 .50 normal Not Available [facility] [address], [address], 05/10/2022 16:26:00 05/05/19 23 05/10/2022 TSH+F REE T4 T4, free 0.9 NG/dL 0.8-1. 8 normal Not Available [facility] [address], [place], [address], 05/10/2022 16:26:00 05/10/19 23 05/09/2022 XR, chest , 2 view No observ ation record ed. [address], [place], [address], 05/14/2022 14:16:24 05/11/1905/09/2022 US, thyro id No observ ation record ed. [address] [facility] [address], [place], [address], 05/14/2022 14:16:25 Result Notes None recorded. Problems Name Problem SNOMED Code Status Onset Date Resolution Date Notes Provider Name and Address Organization Details Recorded Time Acute sinusitis 48393827 Active Not Available [facility] 14:48:57 Essential hypertension 21041547 Active Not Available [facility] 14:48:57 Fatigue 47400541 Active 2022 Lore Rivera MD [address], [place], [address] , Your Office Agent [facility] [employer] [facility] 3 16:51:04 Testosterone level below reference range 053971671 Active 2022 Lore Rivera MD [address], [place], [address] , Your Office Agent [employer] [facility] [employer] 3 16:51:40 Abnormal breath sounds 108274170 Active 2022 MD [address], [place], [address] , [facility] [employer] [facility] [employer] [facility] 3 16:55:04 Goiter 4359317 Active 2022 Lore Rivera MD [address], [place], [address] , [facility] [employer] [facility] 3 16:55:33 Impaired fasting glycemia 339421410 Active 2022 Lore Rivera MD [address], [facility] [address], [place], [address] , [facility] [employer] [facility] 3 14:22:36 Vitamin B12 deficiency (non anemic) 31346009 Active 2022 Lore Rivera MD [address], [facility] [address], [place], [address] , [facility] [employer] [facility] 3 14:22:59 Problem Notes None recorded. Procedures Surgical History Date Name Laterality Status Provider Name and Address Organization Details Recorded Time Appendectomy completed Michelle Mckenzies [facility] 05/02/2022 16:36:30 Hernia Repair completed Michelle Chow [facility] 05/02/2022 16:36:37 Imaging Results None recorded. [...] Address Organization Details Last Updated DateTime 3 512749. 49 g 200.66 cm 31.1 kg/m2 97.6 [degF] 88 /min 140/82 mm[Hg] Michelle Chow [facility] 3 16:30:54 Social History None recorded. Functional Status Question Answer Note LastModified by Organizat ion Details LastModified Time What is your level of alcohol consumption? 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 Family History Relationship Description Onset Age of this Age Resolved Age Notes LastModified by Organization Details LastModified Time Father Family history of malignant neoplasm [email or web address] Not available 05/02 16:34:19 Medical History Condition Response DEPRESSION (INCLUDING POST ) Y HYPERTENSION Y HIGH CHOLESTEROL / HYPERLIPIDEMIA Y Past Encounters Encounter ID Performer Location Encounter Start Date Encounter Closed Date Diagnosis/Indication Diagnosis SNOMED-CT Code Diagnosis ICD10 Code Diagnosis Note [id number] Lore Rivera MD [id number] [address] [place] [address] 05/02/2022 16:21:58 05/02/2022 17:31:00 Fatigue 90078257 R53.83 Will send for thyroid antibodies to screen for autoimmune thyroid disease in addition to CBC, CMP, ferritin, repeat testostero ne and B12/folate to screen for other potential secondary causes of fatigue. Testostero ne level below reference range 360027144 R79.89 Send for full hormone panel as patient having increase breast tissue and discomfort of breasts, more fatigue, heat/cold intoleranc e and difficulty with libido and weight gain. Abnormal b reath sounds 125020038 R09.89 Send for CXR as he has positive egophony in left mid lung-per patient he had covid issues in 2019 and a spot was found on his lungs- hasn't had imaging in close to 2 years now. Goiter 2183933 E04.9 Will send for baseline thyroid ultrasound [...] he chooses to go outside of the [facility] to obtain labwork he was [...] Recorded Advance Directives Directive None Recorded Payers Insurance Date Sequence Insurance Name Policy Number Policy Marcum Covered Member ID Marcum Member ID Guarantor Name 03/01/2023 [facility] Werner Mendoza SELF SELF Werner Mendoza 03/01/2023 1 [place] [id number] Werner Mendoza [id number] Werner Mendoza Notes Date Note Type Note [...] of 465 ng/dL Lore Rivera MD [address] [facility], [facility] [address], [place], [address], [facility] - [facility] [employer] 05/02/2022 17:53:20
[2024-09-01 14:20] LABS: Hematocrit 48.1 % (42.0-52.0); Hemoglobin 15.3 g/dL (14.0-18.0); Immature Granulocyte Percent A 0.6 % (0-0.5); Lymphocytes Absolute Auto 2.75 K/mm3 (0.9-3.2); Mean Corpuscular HGB Conc 31.8 g/dl (32-36); Mean Corpuscular Hemoglobin 26.5 pg (26-34); Mean Corpuscular Volume 83.2 fl (80-100); Nucleated Red Blood Cells Absolute Auto 0.000 K/mm3 (0.0-0.012); Nucleated Red Blood Cells Perc 0.0 % (0.0-0.2); Platelet Count Result 257 k/mm3 (150-375); Red Blood Count 5.78 M/mm3 (4.6-6.20); White Blood Count 9.3 K/mm3 (4.5-10.0)
--- OUTSIDE RECORDS SUMMARY | 2024-09-01 14:27 | XMS_ITS | Referral Summary ---
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
--- OUTSIDE RECORDS SUMMARY | 2024-09-01 14:27 | XMS_ITS | Clinical Summary ---
Author Organization [facility] Address [address] [place] [address] Phone Care Team Providers Care Software Quality Assurance Engineer Name Role Phone Stoney Randall MD Primary Care Provider [phone] Active Problems Problem Noted Date Diagnosed Date [...] age to complete this topic Care Teams Software Quality Assurance Engineer Relationship Specialty Start Date End Date Stoney Randall MD [address] [address] PCP - General Family Medicine 06/27/16
--- OUTSIDE RECORDS SUMMARY | 2024-09-01 14:27 | XMS_ITS | Clinical Summary ---
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
[2024-09-01] MEDS: KETOROLAC 30 MG/ML VIAL (*BKC) IV PUSH (14:42)
[2024-09-01] MEDS: MECLIZINE HCL 25 MG TABLET PO (14:42)
[2024-09-01 14:43] LABS: Alanine Aminotransferase 47 U/L (6-50); Albumin Level 4.1 g/dL (3.5-5.1); Alkaline Phosphatase 54 U/L (38-126); Anion Gap 11 mmol/L (4-12); Aspartate Amino Transferase 44 U/L (17-59); Bilirubin,Total 0.7 mg/dL (0.2-1.3); Blood Urea Nitrogen 19 mg/dL (9-20); Calcium 9.0 mg/dL (8.4-10.2); Carbon Dioxide 22 mmol/L (22-30); Chloride 105 mmol/L (98-107); Estimated CRCL calculation 126 ml/min; Estimated Glomerular Filt Rate > 60; Glucose 113 mg/dL (65-110); Lipase 269 U/L (23-300); Potassium 4.1 mmol/L (3.4-5.0); Sodium 138 mmol/L (137-145); Total Protein 7.4 g/dL (6.3-8.2)
[2024-09-01 14:49] LABS: INR 1.0; Partial Thromboplastin Time 28.0 Seconds (22.3-36.8); Prothrombin Time 13.7 Seconds (11.1-14.7)
[2024-09-01 14:52] LABS: Troponin I < 0.012 ng/mL (0.000-0.034)
--- NOTE | 2024-09-01 16:26 | ED_ITS ---
HPI - General Adult General Chief complaint: Chest Pain Stated complaint: Chest pain Time Seen by Provider: 09/01/24 14:16 History of Present Illness HPI narrative: Patient is a 49-year-old male who presents ER with chest pain. He has been waking up at night with chest tightness and racing heart and some difficulty breathing. He also reports he has been having rotational dizziness so she with some nausea and chest tightness. He recently tapered off of his anxiety medication. He also recently had COVID-19 prior to some the dizziness starting. Dizziness ongoing over last week. Worse when he turns his head bends over. Related Data Home Medications ?Medication ?Instructions ?Recorded ?Confirmed ?Last Taken ?Type metformin 500 mg tablet,extended mg PO 05/15/24 07/17/24 Unknown History release 24 hr testosterone cypionate 100 mg/mL 80 mg IM WEEKLY 05/15/24 07/17/24 Unknown History intramuscular oil Allergies Allergy/AdvReac Type Severity Reaction Status Date / Time pregabalin (From Lyrica) AdvReac Nausea and Verified 09/01/24 14:07 Vomiting Review of Systems 2 Review of Systems: All systems reviewed & are unremarkable except as noted in HPI and below Constitutional: Constitutional: Reports no additional constitutional complaints ENT: Reports system reviewed and no additional complaints, except as documented Cardiovascular: Cardiovascular: Reports no additional cardiovascular complaints Respiratory: Respiratory: Reports no additional respiratory complaints Gastrointestinal: Gastrointestinal: Reports no additional gastrointestinal complaints [facility] Past Medical History Medical History Kidney stones Anxiety Obesity (BMI 30-39.9) Obstructive sleep apnea Hypertension Erectile dysfunction Hyperlipidemia LDL goal <130 Surgical History Surgical History Hx of umbilical hernia repair Open umbilical hernia repair w/ mesh on 11/06/21 History of laparoscopic appendectomy 07/26/20 History of foot surgery History of inguinal hernia repair at age 7 Family History Family History Mother Diabetes mellitus Family history of gout Hypertension Grandparent Diabetes mellitus Family history of malignant neoplasm Father , age 68 Family history of chronic obstructive pulmonary disease Family history of congestive heart failure Lung cancer Social History Social History Social History: The patient lives at home with his , Beverly. He does not have a durable Healthcare power of cargo router, and wishes that his Beverly make any decisions for him if he becomes unable to make decisions himself. Smoking packs per day: 0.5 Smoking cigarettes per day: 10.0 Years smoked: 0.5 Smoking pack-years: 0.25 Smoking status: Current some day smoker Tobacco type: cigarettes Second hand tobacco smoke exposure: No Smoking end date: 08/18/21 Alcohol intake: current Drinks per week: 2 Alcohol use details: beer/bourbon Substance use: never Substance use type: does not use Lack of Transportation: No Lack of Food: Never True Current Housing: I Have Housing Concerned About Future Housing: No Difficulty Paying Gas/Electric Bills: No Difficulty Paying for Meds: No Currently Unemployed: No Education: High School Diploma/GED Difficulty w/ Childcare or Family Care: No Living arrangements: with family Occupation/Education: occupation Additional occupation/education comments: Works at [employer] Gender identity (if verbalized by the patient): Female Sexual Orientation (if Verbalized by the Patient): Straight or Heterosexual Spiritual care concerns: No Agree to blood products: Yes Exam 2 Narrative: GENERAL: Well-appearing, well-nourished, and in no acute distress. HEAD: Normocephalic, atraumatic. EYES: PERRL and EOMI. Left gaze nystagmus. ENT: Mucous membranes moist. Left TM inflamed and bulging, normal ear canal. Normal right-sided ear exam. CHEST: Clear to auscultation. No respiratory distress. HEART: Regular rate and rhythm. Normal peripheral pulses. ABDOMEN: Soft, nontender, nondistended. EXTREMITIES: Normal range of motion. No edema. SKIN: Warm, dry, no rash. NEURO: Alert and oriented x3. PSYCH: Normal mood and affect. Course Course Emergency Course: I feel patient has both vertigo from his otitis but also uncontrolled anxiety since he is weaned himself off of his medication. Follow up with his PCP recommended. Vital Signs Vital signs: Vital Signs Temperature 98.1 F 09/01/24 14:04 Pulse Rate 94 09/01/24 14:04 Respiratory Rate 18 09/01/24 14:04 Blood Pressure 151/83 H 09/01/24 14:04 Pulse Oximetry 96 09/01/24 14:04 Oxygen Delivery Room Air 09/01/24 14:04 Temperature 98.1 F 09/01/24 14:04 Pulse Rate 88 09/01/24 16:02 Respiratory Rate 16 09/01/24 16:02 Blood Pressure 132/95 H 09/01/24 16:02 Pulse Oximetry 95 09/01/24 16:02 Oxygen Delivery Room Air 09/01/24 14:04 Medical Decision Making Vital Signs Vital Signs: Vital Signs Temperature 98.1 F 09/01/24 14:04 Pulse Rate 94 09/01/24 14:04 Respiratory Rate 18 09/01/24 14:04 Blood Pressure 151/83 H 09/01/24 14:04 Pulse Oximetry 96 09/01/24 14:04 Oxygen Delivery Room Air 09/01/24 14:04 Temperature 98.1 F 09/01/24 14:04 Pulse Rate 88 09/01/24 16:02 Respiratory Rate 16 09/01/24 16:02 Blood Pressure 132/95 H 09/01/24 16:02 Pulse Oximetry 95 09/01/24 16:02 Oxygen Delivery Room Air 09/01/24 14:04 Lab Data 09/01/24 14:14 09/01/24 14:14 Labs: Lab Results 09/01/24 Range/Units 14:14 WBC 9.3 (4.5-10.0) K/mm3 RBC 5.78 (4.6-6.20) M/mm3 Hgb 15.3 (14.0-18.0) g/dL Hct 48.1 (42.0-52.0) % MCV 83.2 (80-100) fl MCH 26.5 (26-34) pg MCHC 31.8 L (32-36) g/dl RDW 15.0 H (11.5-14.5) % Plt Count 257 (150-375) k/mm3 MPV 9.8 (7.4-10.4) fl Immature Gran % (Auto) 0.6 H (0-0.5) % Neut % (Auto) 56.7 (45.5-73.1) % Lymph % (Auto) 29.5 (18.3-44.2) % Martin % (Auto) 11.1 H (2.6-8.5) % Eos % (Auto) 1.5 (0-4.4) % Baso % (Auto) 0.6 (0.2-1.2) % Lymph # (Auto) 2.75 (0.9-3.2) K/mm3 Martin # (Auto) 1.0 H (0.1-0.6) K/mm3 Eos # (Auto) 0.1 (0-0.3) K/mm3 Baso # (Auto) 0.1 (0.0-0.1) K/mm3 Abs Immat Gran (auto) 0.06 H (0.00-0.031) K/mm3 Absolute Neuts (auto) 5.3 (1.3-6.7) K/mm3 Absolute Nucleated RBC 0.000 (0.0-0.012) K/mm3 Nucleated RBC % 0.0 (0.0-0.2) % PT 13.7 (11.1-14.7) Seconds INR 1.0 APTT 28.0 (22.3-36.8) Seconds D-Dimer 0.29 (<0.48) ug/mL Sodium 138 (137-145) mmol/L Potassium 4.1 (3.4-5.0) mmol/L Chloride 105 (98-107) mmol/L Carbon Dioxide 22 (22-30) mmol/L Anion Gap 11 (4-12) mmol/L BUN 19 (9-20) mg/dL Creatinine 0.98 (0.7-1.3) mg/dL Estim Creat Clear Calc 126 ml/min Estimated GFR > 60 (59 - ) Glucose 113 H (65-110) mg/dL Calcium 9.0 (8.4-10.2) mg/dL Total Bilirubin 0.7 (0.2-1.3) mg/dL AST 44 (17-59) U/L ALT 47 (6-50) U/L Alkaline Phosphatase 54 (38-126) U/L Troponin I < 0.012 (0.000-0.034) ng/mL Total Protein 7.4 (6.3-8.2) g/dL Albumin 4.1 (3.5-5.1) g/dL Lipase 269 (23-300) U/L Imaging Data Radiologist's impression: ITS Impressions Chest X-Ray 09/01/24 14:35 IMPRESSION: No acute cardiopulmonary pathology. ECG Data EKG #1: ECG completion date: 09/01/24 ECG completion time: 14:08 EKG Interpretation: normal rate (94), sinus rhythm, non-specific ST changes, normal QRS and normal QT Discharge Plan Discharge Clinical Impression: Otitis media, Vertigo Patient Disposition: Home Condition: Stable Instructions: Vertigo (ED), Ear Infection (ED) Additional Instructions: Please return to the emergency department if you develop severe and persistent chest pain, difficulty breathing, dizziness, leg swelling or if you are coughing up blood as these can be signs of a medical emergency. Please call your doctor for a follow up appointment to determine the need for further testing. Patient Language: Amharic Prescriptions: New meclizine 25 mg tablet 25 mg PO TID PRN (Reason: dizziness) Qty: 20 0RF amoxicillin 875 mg tablet 875 mg PO Q12H Qty: 14 0RF No Action metformin 500 mg tablet extended release 24 hr PO testosterone cypionate 100 mg/mL oil 80 mg IM WEEKLY Rx Instructions: as a single dose zolpidem 10 mg tablet 10 mg PO QHS Qty: 30 0RF cyanocobalamin (vitamin B-12) 1,000 mcg/mL solution 1,000 mcg IM WEEKLY Qty: 25 1RF venlafaxine 37.5 mg tablet 37.5 mg PO DAILY Qty: 20 0RF Rx Instructions: Take 1 tablet daily x 2 weeks THEN every other day until out of tablets. hydrochlorothiazide 12.5 mg tablet 12.5 mg PO DAILY Qty: 90 1RF tadalafil [Cialis] 20 mg tablet 20 mg PO DAILY PRN (Reason: sexual activity) Qty: 18 4RF Rx Instructions: administer approximately 30min before sexual activity; do not use more than 1 dose per 24hrs (DME) pen needle, diabetic [BD Ultra-Fine Mini Pen Needle] 31 gauge x 3/16 needle See Rx Instructions .Route Qty: 100 0RF Rx Instructions: Use to inject Vitamin B12 valacyclovir 1 gram tablet 1,000 mg PO TID Qty: 30 2RF omeprazole 40 mg capsule,delayed release(DR/EC) 40 mg PO DAILY Qty: 90 1RF irbesartan 150 mg tablet 150 mg PO DAILY Qty: 90 1RF atorvastatin 20 mg tablet 20 mg PO DAILY Qty: 90 1RF Follow-up/Referrals: Denise King, SHELL MOLDING ROLLER BLAST OPERATOR [Primary Care Provider] - 1 Week
== END 2024-09-01 16:48 | disposition home or self-care (01) ==
PROVIDERS: Emergency Provider Emergency Medicine; PCP Nurse Practitioner
DX: H66.92 Otitis media, unspecified, left ear (principal); R42 Dizziness and giddiness; F17.210 Nicotine dependence, cigarettes, uncomplicated; Z87.442 Personal history of urinary calculi; F41.9 Anxiety disorder, unspecified; E66.9 Obesity, unspecified; Z68.32 Body mass index [BMI] 32.0-32.9, adult; G47.30 Sleep apnea, unspecified; I10 Essential (primary) hypertension; E78.5 Hyperlipidemia, unspecified
CPT/HCPCS: 36415; 71046; 80053; 83690; 84484; 85025; 85380; 85610; 85730; 93005; 96374; 99284; A9270; J1885

== ENCOUNTER 2024-11-18 07:35 | Outpatient (CLI) | payer BC, SELFPAY ==
--- OUTSIDE RECORDS SUMMARY | 2024-11-18 07:40 | XMS_ITS | Clinical Summary ---
Author Organization [facility] Address Formerly [facility] [place] [address] Care Team Providers Care Manager Of Broadcast Content Name Role Phone Rudolph Hart DO Primary Care Provider [phone] Encounters Date Type Department Care Team Description 10/07/2024 2:35 PM CDT - 10/07/2024 11:59 PM CDT Hospital Encounter [facility] [address] [place] [address] Aimee Gill MD Discharge Disposition: Home or Self Care (Routine Discharge) 10/07/2024 Travel from Last 3 Months Social History Tobacco Use Types Packs/Day Years Used Date Smoking Tobacco: Never Assessed Sex and Gender Information Value Date Recorded Sex Assigned at Male 10/07/2024 2:28 PM CDT Legal Sex Male 1:18 PM CDT Gender Identity Not on file Sexual Orientation Not on file Plan of Treatment Health Maintenance Due Date Last Done Comments Colorectal Cancer Screening Colonoscopy (10 Years) 1977 Annual Physical 1980 Hepatitis C 07/03/1995 DTaP, Tdap and Td Vaccines (1 - Tdap) 1996 Hepatitis B Vaccines (1 of 3 - 19+ 3-dose series) 1996 COVID-19 Vaccine ( season) 2024 01/01/2022, 01/06/2021, 07/07/2020, Additional history exists Meningococcal B Vaccine Aged Out No l onger eligible based on patient's age to complete this topic Meningococcal Vaccine Aged Out No jose roberto saba eligible based on patient's age to complete this topic Pneumococcal Vaccine: Pediatrics (0 to 5 Years) and At-Risk Patients (6 to 49 Years) Aged Out No longer eligible based on patient's age to complete this topic RSV Immunizations Under 20 Months Aged Out No longer eligible based on patient's age to complete this topic Procedures Procedure Name Priority Date/Time Associated Diagnosis Comments CT SINUS WO CON Routine 10/07/2024 3:01 PM CDT Chronic sinusitis, unspecified Other specified disorders of nose and nasal sinuses Nasal congestion Deviated nasal septum Hypertrophy of nasal turbinates from Last 3 Months Results * CT SINUS WO CON (10/07/2024 3:01 PM CDT) Anatomical Region Laterality Modality Facial Computed Tomogra phy 10/15/2024 8:22 AM CDT Impressions 10/15/2024 8:24 AM CDT IMPRESSION: Unremarkable sinus CT. No significant mucosal thickening, air-fluid levels or bone destruction. Referred By: AIMEE GILL Interpreted By: Rudolph Rizvi MD, 10/15/2024 8:22 AM Narrative 10/15/2024 8:24 AM CDT [address] [address] EXAMINATION:Sinus CT without contrast 10/07/2024 INDICATION:Chronic sinusitis TECHNIQUE: Axial CT images of the paranasal sinuses were acquired without intravenous contrast. Sagittal and coronal reformats were constructed. Radiation dose reduction techniques were used. COMPARISON: None FINDINGS:The frontal, ethmoid, sphenoid and maxillary sinuses clear. There is a minimal mucosal thickening in the maxillary sinuses. No air-fluid levels. The ostiomeatal units are patent. There is a slight leftward deviation of the upper nasal septum and slight rightward deviation of the lower nasal septum. No sinus expansion, volume loss, sclerosis or dehiscence. No periapical lucencies within the maxilla. There is an 8 mm nasal palatine duct cyst. The orbits and globes are unremarkable. The mastoid air cells and middle ear cavities are clear. The sella is within normal limits for size. The temporomandibular joint spaces are unremarkable. Partially visualized intracranial contents are unremarkable. The nasopharynx oropharynx are unremarkable No discrete facial mass, fluid collection or acute inflammatory changes Procedure Note Rudolph Rizvi MD - 10/15/2024 [id number] [place] [address] EXAMINATION:Sinus CT without contrast 10/07/2024 INDICATION:Chronic sinusitis TECHNIQUE: Axial CT images of the paranasal sinuses were acquired withoutintravenous contrast. Sagittal and coronal reformats were constructed.Radiation dose reduction techniques were used. COMPARISON: None FINDINGS:The frontal, ethmoid, sphenoid and maxillary sinuses clear.There is a minimal mucosal thickening in the maxillary sinuses. Noair-fluid levels. The ostiomeatal units are patent. There is a slightleftward deviation of the upper nasal septum and slight rightwarddeviation of the lower nasal septum. No sinus expansion, volume loss,sclerosis or dehiscence. No periapical lucencies within the maxilla.There is an 8 mm nasal palatine duct cyst. The orbits and globes are unremarkable. The mastoid air cells and middleear cavities are clear. The sella is within normal limits for size. The temporomandibular jointspaces are unremarkable. Partially visualized intracranial contents are unremarkable. Thenasopharynx oropharynx are unremarkable No discrete facial mass, fluid collection or acute inflammatory changes IMPRESSION: Unremarkable sinus CT. No significant mucosal thickening,air-fluid levels or bone destruction. Referred By: AIMEE GILL Interpreted By: Rudolph Rizvi MD, 10/15/2024 8:22 AM Aimee Gill MD CT Final Result from Last 3 Months Insurance [facility] Care Teams Manager Of Broadcast Content Relationship Specialty Start Date End Date Rudolph Hart DO [address] [address] [address] [place] [address] PCP - General INTERNAL MEDICINE 10/07/24
--- OUTSIDE RECORDS SUMMARY | 2024-11-18 07:40 | XMS_ITS | Clinical Summary ---
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 Gender Identity Not on file Sexual Orientation [...] Visit/Exam 18-64 07/03/1995 Covid-19 Vaccine ( season) 2024 01/01/2022, 01/06/2021, 07/07/2020, Additional history exists Influenza Vaccine (#1) 2024 01/01/2022 Pneumococcal vaccine <65 Aged Out No longer eligible based on patient's age to complete this topic Insurance [employer] Member Subscriber Plan / Payer (Ef fective 2016-Present) Name:Werner Mckinnon Relation to Subscriber:Self Name:Werner Mckinnon Payer ID:[id number] (NAIC) Type:CYNDY MANZO Address: [facility] [id number] [employer] [facility] CHOICE OOS Care Teams Ship Propeller Finisher Relationship Specialty Start Date End Date José Miguel Car MD [address] [place] [address] PCP - General 04/02/18
--- OUTSIDE RECORDS SUMMARY | 2024-11-18 07:40 | XMS_ITS | Data Portability ---
Author Organization [facility] [employer], Main Office Address [address] [place] [address] Assessment No assessment recorded. Plan of Treatment Reminders Order Date Submit Date Provider Last Modified By Organization Details Last Modified Time Details Appointments None recorded. Lab lh + FSH, serum 2022 023 [employer] [facility], [address], [place], [address], 3 16:25:59 estradiol, serum 2022 023 [employer] [facility], [address], [place], [address], 3 16:25:57 PSA, serum or plasma 2022 023 [employer] [facility], [address], [place], [address], 3 16:25:58 prolactin, serum 2022 023 [employer] [facility], [address], [place], [address], 3 16:25:56 igf-1 (insulin-li ke growth factor), serum 2022 023 [employer] [facility], [address], [place], [address], 3 16:25:54 CBC w/ auto diff 2022 023 [employer] [facility], [address], [place], [address], 3 16:25:55 TSH + free T4, serum 2022 023 [employer] [facility], [address], [place], [address], 3 16:26:00 vitamin B12 + folate, serum or blood 2022 023 [employer] [facility], [address], [place], [address], 3 16:25:59 CMP, serum or plasma 2022 023 [employer] [facility], [address], [place], [address], 3 16:25:53 thyroid peroxidase (tpo) Ab, serum 2022 023 [employer] [facility], [address], [place], [address], 3 16:25:56 testosteron e, free + total, serum 2022 023 [employer] [facility], [address], [place], [address], 3 16:25:52 iron + TIBC + ferritin, serum 2022 023 [employer] [facility], [address], [place], [address], 3 16:25:51 Referral None recorded. Procedures None recorded. Surgeries None recorded. Imaging US, thyroid 2022 023 [facility], [address], [address] [address], [place], [address], 3 07:28:41 XR, chest, 2 view 2022 023 [facility], [address], [address] [address], [place], [address], 3 17:25:27 Medication Orders None recorded. Patient TargetsNo targets recorded. Patient InstructionsNo instructions recorded. Reason for Referral None Reported. Results Created Date Observation Date Name Description Value Unit Range Abnormal Flag Note LastModifiedBy Organization Detail LastModifiedTime 05/05/1905/10/2022 IRON, TIBC AND SERGEY TIN PANEL iron, total 66 mcg/d L 50-180 normal Not Available [address], [address], 05/10/2022 16:25:51 05/05/1905/10/2022 IRON, TIBC AND SERGEY TIN PANEL iron binding capacity 308 mcg/d L_(ca lc) 250-42 5 normal Not Available [address], [address], 05/10/2022 16:25:51 05/05/1905/10/2022 IRON, TIBC AND SERGEY TIN PANEL % saturation 21 %_(ca lc) 20-48 normal Not Available [address], [address], 05/10/2022 16:25:51 05/05/1905/10/2022 IRON, TIBC AND SERGEY TIN PANEL ferritin 72 NG/mL 38-380 normal Not Available [address], [address], 05/10/2022 16:25:51 05/05/1905/10/2022 TESTO STERO NE, FREE, BIOAV AILAB LE AND TOTAL , MS albumin 4.4 g/dL 3.6-5. 1 Not Available [address], [address], 05/10/2022 16:25:52 05/05/19 23 05/10/2022 TESTO STERO NE, FREE, BIOAV AILAB LE AND TOTAL , MS sex hormone binding globulin 33.3 nmol/ L 10-50 Not Available [address] [address] [place], [address], 05/10/2022 16:25:52 05/05/1905/10/2022 TESTO STERO NE, FREE, BIOAV AILAB LE AND TOTAL , MS testosterone , free 62.2 pg/mL 46.0-2 24.0 Not Available [address] [address] [place], [address], 05/10/2022 16:25:52 05/05/1905/10/2022 TESTO STERO NE, FREE, BIOAV AILAB LE AND TOTAL , MS testosterone ,bioavailabl e 125.2 NG/dL 110.0- 575.0 Not Available [address] [address] [place], [address], 05/10/2022 16:25:52 05/05/1905/10/2022 TESTO STERO NE, FREE, BIOAV AILAB LE AND TOTAL , MS testosterone , total, MS 466 NG/dL 250-11 00 For addit ional radhar erik christianson refer to https ://ed ucati on.qu karlie Help Scout. SellMyJersey.com/f aq/FA Q165 (This link is being provi ded for infor dianne nal/e ducat ional purpo ses only. ) (Note ) This test was devel oped and its alec tical perfo rmanc e deep cteri stics have been deter mined by [employer]. It has not been clear ed or appro jaime by the FDA. This assay has been valid ated pursu ant to the CLIA regul ation s and is used for clini yair purpo ses. MARYSE perez n [address] [facility] [address] [facility] [address] [phone] Umesh zaragoza MD Not Available [address] [address] [place], [address], 05/10/2022 16:25:52 05/05/1905/10/2022 COMPR EHENS SUSIE METAB OLIC PANEL glucose 105 mg/dL 65-139 normal Non-f astin g refer ence inter hussain Not Available [address] [address] [place], [address], 05/10/2022 16:25:53 05/05/1905/10/2022 COMPR EHENS SUSIE METAB OLIC PANEL urea nitrogen (BUN) 19 mg/dL 7-25 normal Not Available [address] [address] [place], [address], 05/10/2022 16:25:53 05/05/1905/10/2022 COMPR EHENS SUSIE METAB OLIC PANEL creatinine 1.08 mg/dL 0.60-1 .29 normal Not Available [address] [address] [place], [address], 05/10/2022 16:25:53 05/05/1905/10/2022 COMPR EHENS SUSIE METAB [...] kdoqi /gfr% 5Fcal culat or Not Available [address] [address] [place], [address], 05/10/2022 16:25:53 05/05/1905/10/2022 COMPR EHENS SUSIE METAB OLIC PANEL BUN/creatini ne ratio NOT APPLIC ABLE (calc ) 6-22 Not Available [address] [address] [place], [address], 05/10/2022 16:25:53 05/05/19 23 05/10/2022 COMPR EHENS SUSIE METAB OLIC PANEL sodium 137 mmol/ L 135-14 6 normal Not Available [address], [address], 05/10/2022 16:25:53 05/05/19 23 05/10/2022 COMPR EHENS SUSIE METAB OLIC PANEL potassium 4.1 mmol/ L 3.5-5. 3 normal Not Available [address], [address], 05/10/2022 16:25:53 05/05/19 23 05/10/2022 COMPR EHENS SUSIE METAB OLIC PANEL chloride 105 mmol/ L 98-110 normal Not Available [address], [address], 05/10/2022 16:25:53 05/05/19 23 05/10/2022 COMPR EHENS SUSIE METAB OLIC PANEL carbon dioxide 26 mmol/ L 20-32 normal Not Available [address], [address], 05/10/2022 16:25:53 05/05/19 23 05/10/2022 COMPR EHENS SUSIE METAB OLIC PANEL calcium 9.5 mg/dL 8.6-10 .3 normal Not Available [address], [address], 05/10/2022 16:25:53 05/05/19 23 05/10/2022 COMPR EHENS SUSIE METAB OLIC PANEL protein, total 6.8 g/dL 6.1-8. 1 normal Not Available [address], [address], 05/10/2022 16:25:53 05/05/19 23 05/10/2022 COMPR EHENS SUSIE METAB OLIC PANEL albumin 4.5 g/dL 3.6-5. 1 normal Not Available [address] [address] [place], [address], 05/10/2022 16:25:53 05/05/19 23 05/10/2022 COMPR EHENS SUSIE METAB OLIC PANEL globulin 2.3 g/dL_ (calc ) 1.9-3. 7 normal Not Available [address], [address], 05/10/2022 16:25:53 05/05/19 23 05/10/2022 COMPR EHENS SUSIE METAB OLIC PANEL albumin/glob ulin ratio 2.0 (calc ) 1.0-2. 5 normal Not Available [address], [address], 05/10/2022 16:25:53 05/05/19 23 05/10/2022 COMPR EHENS SUSIE METAB OLIC PANEL bilirubin, total 1.0 mg/dL 0.2-1. 2 normal Not Available [address] [address] [place], [address], 05/10/2022 16:25:53 05/05/19 23 05/10/2022 COMPR EHENS SUSIE METAB OLIC PANEL alkaline phosphatase 52 U/L 36-130 normal Not Available [address] [address] [place], [address], 05/10/2022 16:25:53 05/05/19 23 05/10/2022 COMPR EHENS SUSIE METAB OLIC PANEL AST 19 U/L 10-40 normal Not Available [address], [address], 05/10/2022 16:25:53 05/05/19 23 05/10/2022 COMPR EHENS SUSIE METAB OLIC PANEL ALT 24 U/L 9-46 normal Not Available [address] [address] [place], [address], 05/10/2022 16:25:53 05/05/19 23 05/10/2022 IGF 1, LC/MS igf 1, lc/MS 176 NG/mL 52-328 Not Available [address], [address], 05/10/2022 16:25:54 05/05/1905/10/2022 IGF 1, LC/MS Z [...] for clini yair purpo ses. Not Available [employer] [address], [address], 05/10/2022 16:25:54 05/05/1905/10/2022 CBC (INCL UDES DIFF/ PLT) white blood cell count 4.9 thous and/u L 3.8-10 .8 normal Not Available [employer] [address], [address], 05/10/2022 16:25:55 05/05/19 23 05/10/2022 CBC (INCL UDES DIFF/ PLT) red blood cell count 5.67 jad on/uL 4.20-5 .80 normal Not Available [employer] [address], [address], 05/10/2022 16:25:55 05/05/19 23 05/10/2022 CBC (INCL UDES DIFF/ PLT) hemoglobin 17.2 g/dL 13.2-1 7.1 high Not Available [employer] [address], [address], 05/10/2022 16:25:55 05/05/1905/10/2022 CBC (INCL UDES DIFF/ PLT) hematocrit 49.8 % 38.5-5 0.0 normal Not Available [address], [address], 05/10/2022 16:25:55 05/05/1905/10/2022 CBC (INCL UDES DIFF/ PLT) MCV 87.8 fL 80.0-1 00.0 normal Not Available [address], [address], 05/10/2022 16:25:55 05/05/1905/10/2022 CBC (INCL UDES DIFF/ PLT) MCH 30.3 pg 27.0-3 3.0 normal Not Available [address], [address], 05/10/2022 16:25:55 05/05/1905/10/2022 CBC (INCL UDES DIFF/ PLT) MCHC 34.5 g/dL 32.0-3 6.0 normal Not Available [address], [address], 05/10/2022 16:25:55 05/05/19 23 05/10/2022 CBC (INCL UDES DIFF/ PLT) RDW 13.4 % 11.0-1 5.0 normal Not Available [address], [address], 05/10/2022 16:25:55 05/05/19 23 05/10/2022 CBC (INCL UDES DIFF/ PLT) platelet count 210 thous and/u L 140-40 0 normal Not Available [address], [address], 05/10/2022 16:25:55 05/05/1905/10/2022 CBC (INCL UDES DIFF/ PLT) MPV 11.1 fL 7.5-12 .5 normal Not Available [address] [place], [address], 05/10/2022 16:25:55 05/05/1905/10/2022 CBC (INCL UDES DIFF/ PLT) absolute neutrophils 2602 cells /uL 1500-7 800 normal Not Available [address], [address], 05/10/2022 16:25:55 05/05/19 23 05/10/2022 CBC (INCL UDES DIFF/ PLT) absolute lymphocytes 1602 cells /uL 850-39 00 normal Not Available [address], [address], 05/10/2022 16:25:55 05/05/1905/10/2022 CBC (INCL UDES DIFF/ PLT) absolute monocytes 544 cells /uL 200-95 0 normal Not Available [address], [address], 05/10/2022 16:25:55 05/05/19 23 05/10/2022 CBC (INCL UDES DIFF/ PLT) absolute eosinophils 103 cells /uL 15-500 normal Not Available [address], [address], 05/10/2022 16:25:55 05/05/1905/10/2022 CBC (INCL UDES DIFF/ PLT) absolute basophils 49 cells /uL 0-200 normal Not Available [address], [address], 05/10/2022 16:25:55 05/05/19 23 05/10/2022 CBC (INCL UDES DIFF/ PLT) neutrophils 53.1 % normal Not Available [address], [address], 05/10/2022 16:25:55 05/05/1905/10/2022 CBC (INCL UDES DIFF/ PLT) lymphocytes 32.7 % normal Not Available [address], [address], 05/10/2022 16:25:55 05/05/19 23 05/10/2022 CBC (INCL UDES DIFF/ PLT) monocytes 11.1 % normal Not Available [address], [address], 05/10/2022 16:25:55 05/05/19 23 05/10/2022 CBC (INCL UDES DIFF/ PLT) eosinophils 2.1 % normal Not Available [facility] [address], [address], 05/10/2022 16:25:55 05/05/19 23 05/10/2022 CBC (INCL UDES DIFF/ PLT) basophils 1.0 % normal Not Available [address], [address], 05/10/2022 16:25:55 05/05/19 23 05/10/2022 THYRO ID PEROX IDASE ANTIB ODIES thyroid peroxidase antibodies 3 IU/mL <9 normal Not Available [address], [address], 05/10/2022 16:25:55 05/05/1905/10/2022 PROLA CTIN prolactin 7.0 NG/mL 2.0-18 .0 normal Not Available [address], [address], 05/10/2022 16:25:56 05/05/1905/10/2022 ESTRA DIOL estradiol 21 [...] is recom chauncey d (orde r code 42989 ). Erik layne note: patie nts being [...] s. [facility] order code 77153 -Estr adiol , Ultra sensi tive LC/MS /MS demon strat es negli gible cross react ivity with fulve stran t. Not Available [employer] [facility] [address] [place], [address], 05/10/2022 16:25:57 05/05/1905/10/2022 PSA, TOTAL PSA, total [...] not be inter prete d as absol peoria evide nce of the prese nce or absen ce of disea se. Not Available [employer] [facility] [address] [place], [address], 05/10/2022 16:25:58 05/05/1905/10/2022 VITAM IN B12/F OLATE [...] pg/mL will have sympt oms. Not Available [employer] [address], [address], 05/10/2022 16:25:59 05/05/1905/10/2022 VITAM IN B12/F OLATE , SERUM PANEL folate, serum 18.2 NG/mL normal Refer ence Range Low: <3.4 Borde rline : 3.4-5 .4 Flaquita l: >5.4 Not Available [employer] [address], [address], 05/10/2022 16:25:59 05/05/1905/10/2022 FSH AND LH FSH 4.9 mIU/m L 1.6-8. 0 normal Not Available [employer] [facility] [address] [place], [address], 05/10/2022 16:25:59 05/05/1905/10/2022 FSH AND LH LH 3.7 mIU/m L 1.5-9. 3 normal Not Available [employer] [address], [address], 05/10/2022 16:25:59 05/05/1905/10/2022 TSH+F REE T4 TSH 1.34 mIU/L 0.40-4 .50 normal Not Available [employer] [address], [address], 05/10/2022 16:26:00 05/05/19 23 05/10/2022 TSH+F REE T4 T4, free 0.9 NG/dL 0.8-1. 8 normal Not Available [employer] [address] [address], [place], [address], 05/10/2022 16:26:00 05/10/19 23 05/09/2022 XR, chest , 2 view No observ ation record ed. [address], [place], [address], 05/14/2022 14:16:24 05/11/1905/09/2022 US, thyro id No observ ation record ed. [address] [facility] [address], [place], [address], 05/14/2022 14:16:25 Result Notes None recorded. Problems Name Problem SNOMED Code Status Onset Date Resolution Date Notes Provider Name and Address Organization Details Recorded Time Acute sinusitis 94579278 Active Not Available [facility] 14:48:57 Essential hypertension 49643164 Active Not Available [facility] 14:48:57 Fatigue 96774589 Active 2022 Lore Rivera MD [address], [place], [address] , [employer] [facility] [employer] [facility] 3 16:51:04 Testosterone level below reference range 818635268 Active 2022 Lore Rivera MD [address], [place], [address] , [employer] [facility] [place] 3 16:51:40 Abnormal breath sounds 860764431 Active 2022 MD Raquel [address], [place], [address] , [facility] [email or web address] [facility] 3 16:55:04 Goiter 7725942 Active 2022 Lore Rivera MD [address], [place], [address] , [facility] [employer] [facility] 3 16:55:33 Impaired fasting glycemia 515339120 Active 2022 Lore Rivera MD [address], [facility] [address], [place], [address] , [facility] [employer] [facility] 3 14:22:36 Vitamin B12 deficiency (non anemic) 40571292 Active 2022 Lore Rivera MD [address], [facility] [address], [place], [address] , [facility] [employer] [facility] 3 14:22:59 Problem Notes None recorded. Procedures Surgical History Date Name Laterality Status Provider Name and Address Organization Details Recorded Time Appendectomy completed Michelle Mckenzies [facility] [employer] [facility] 05/02/2022 16:36:30 Hernia Repair completed Michelle Chow [facility] [employer] [facility] 05/02/2022 16:36:37 Imaging Results None recorded. [...] Address Organization Details Last Updated DateTime 3 763275. 49 g 200.66 cm 31.1 kg/m2 97.6 [degF] 88 /min 140/82 mm[Hg] Michelle Chow CMA [place] [facility] 3 16:30:54 Social History None recorded. Functional Status Question Answer Note LastModified by Organizat ion Details LastModified Time What is your level of alcohol consumption? 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 Family History Relationship Description Onset Age of this Age Resolved Age Notes LastModified by Organization Details LastModified Time Father Family history of malignant neoplasm [email or web address] Not available 05/02 16:34:19 Medical History Condition Response DEPRESSION (INCLUDING POST ) Y HYPERTENSION Y HIGH CHOLESTEROL / HYPERLIPIDEMIA Y Past Encounters Encounter ID Performer Location Encounter Start Date Encounter Closed Date Diagnosis/Indication Diagnosis SNOMED-CT Code Diagnosis ICD10 Code Diagnosis IMO Codes Diagnosis Note [id number] Lore Rivera MD [facility] [address] [place] [address] 05/02/2022 16:21:58 05/02/2022 17:31:00 Fatigue 32109514 R53.83 Will send for thyroid antibodies to screen for autoimmune thyroid disease in addition to CBC, CMP, ferritin, repeat testostero ne and B12/folate to screen for other potential secondary causes of fatigue. Testostero ne level below reference range 342898395 R79.89 Send for full hormone panel as patient having increase breast tissue and discomfort of breasts, more fatigue, heat/cold intoleranc e and difficulty with libido and weight gain. Abnormal b reath sounds 744584191 R09.89 Send for CXR as he has positive egophony in left mid lung-per patient he had covid issues in 2019 and a spot was found on his lungs- hasn't had imaging in close to 2 years now. Goiter 9623426 E04.9 Will send for baseline thyroid ultrasound [...] he chooses to go outside of the [facility] to obtain labwork he was [...] ID Marcum Member ID Guarantor Name 03/01/2023 [facility] Werner Mendoza SELF SELF Werner Mendoza 03/01/2023 1 [employer] [employer] [id number] Werner Mendoza [id number] Werner Mendoza Notes Date Note Type Note [...] ng/dL Lore Rivera MD [address], [facility] [address], [place], [address], [facility] [place] 05/02/2022 17:53:20
--- NOTE | 2024-11-18 08:06 | ECHO_ITS ---
Patient Info Name: eWrner Mendoza Age: 49 years : 1975 Gender: Male Ht: 78 in Wt: 280 lbs BSA: 2.67 m2 HR: 73 bpm BP: 137 / 96 mmHg Heart Rhythm: Sinus Rhythm Technical Quality: Fair Exam Date: 11/18/2024 8:16 AM Patient Status: O Admit Date: 11/18/2024 Exam Type: CA echo doppler color flow Complete two-dimensional, color flow and Doppler transthoracic echocardiogram is performed. .Net Architect: Mariposa Pugh Attending Provider: Denise King Summary 1. Complete two-dimensional, color flow and Doppler transthoracic echocardiogram is performed. 2. Left ventricular chamber dimension is mildly enlarged. 3. Left ventricular systolic function is normal, estimated at 60-65. 4. The left ventricular diastolic function is normal. 5. E/e' 7 is not elevated. 6. Left atrial chamber dimension is moderately enlarged. 7. There is mild aortic valve sclerosis. 8. There is trace aortic valve regurgitation. 9. There is trace mitral valve regurgitation. 10. There is trace tricuspid valve regurgitation. 11. No pulmonary hypertension, estimated pulmonary arterial systolic pressure is 25 mmHg. Left Ventricle E/e' 7 is not elevated. Left ventricular chamber dimension is mildly enlarged. Left ventricular systolic function is normal, estimated at 60-65. The left ventricular diastolic function is normal. Right Ventricle Right ventricular chamber dimension is normal. Right ventricular systolic function is normal and with normal TAPSE 2.1 cm. Left Atria Left atrial chamber dimension is moderately enlarged. Right Atria Right atrial chamber dimension is normal. Aortic Valve The aortic valve is trileaflet. There is mild aortic valve sclerosis. There is no aortic valve stenosis. There is trace aortic valve regurgitation. Pulmonic Valve There is no pulmonic regurgitation. Mitral Valve There is no mitral valve stenosis. There is trace mitral valve regurgitation. Tricuspid Valve There is trace tricuspid valve regurgitation. No pulmonary hypertension, estimated pulmonary arterial systolic pressure is 25 mmHg. Pericardium/Pleural There is no pericardial effusion. Inferior Vena Cava Normal inferior vena cava with >50% collapse upon inspiration consistent with normal right atrial pressure, 5 mmHg. Aorta The aortic root size at the sinus of Valsalva is normal. Left Ventricular Outflow Tract Name Value Normal LVOT 2D LVOT Diameter 2.3 cm LVOT Doppler LVOT Peak Velocity 104 cm/s LVOT Peak Gradient 4 mmHg LVOT Mean Gradient 2 mmHg LVOT VTI 19 cm LVOT VTI/AV VTI Ratio 0.9 LVOT Stroke Volume 79 ml LVOT CO 5.3 l/min LVOT CI 2.0 l/min/m2 Pulmonic Valve Name Value Normal RVOT Doppler RVOT Peak Velocity 62 cm/s RVOT Peak Gradient 2 mmHg PV Doppler PV Peak Velocity 111 cm/s PV Peak Gradient 5 mmHg Mitral Valve Name Value Normal MV Diastolic Function MV E Peak Velocity 63 cm/s MV A Peak Velocity 55 cm/s MV E/A 1.1 MV Decel Time (PW) 220 ms MV Annular TDI MV E/e' (Septal) 8.4 MV E/e' (Lateral) 6.8 MV E/e' (Average) 7.6 Tricuspid Valve Name Value Normal TV Regurgitation Doppler TR Peak Velocity 226 cm/s TR Peak Gradient 18 mmHg Estimated PAP/RSVP RA Pressure 5 mmHg <=5 PA Systolic Pressure 25 mmHg <36 RV Systolic Pressure 25 mmHg <36 TV Annular TDI TV Lateral Missy s' Velocity 9.2 cm/s >=9.5 Aorta Name Value Normal Ascending Aorta Ao Root Diameter (MM) 3.9 cm Ao Root Diam Index (MM) 1.5 cm/m2 Aortic Valve Name Value Normal AV Doppler AV Peak Velocity 113 cm/s AV Peak Gradient 5 mmHg AV Mean Gradient 3 mmHg AV VTI 21 cm AV Area (Cont Eq VTI) 3.8 cm2 >=3.0 AV Area (Cont Eq Alan) 3.8 cm2 AV DI (Alan) 0.92 AV Regurgitation 2D LVOT Area 4.1 cm2 Ventricles Name Value Normal LV Dimensions 2D/MM IVS Diastolic Thickness (2D) 1.2 cm 0.6-1.0 LVID Diastole (2D) 5.3 cm 4.2-5.8 LVIW Diastolic Thickness (2D) 1.0 cm 0.6-1.0 LVID Systole (2D) 3.6 cm 2.5-4.0 LVOT Diameter 2.3 cm LV Mass (2D Cubed) 235.10 g 88.00-224.00 LV Mass Index (2D Cubed) 88 g/m2 49-115 Relative Wall Thickness (2D) 0.39 <=0.42 LV Fractional Shortening/Ejection Fraction 2D/MM LV Fractional Shortening (2D) 33 % 25-43 LV EF (2D Teichholz) 61 % LV Diastolic Volume (4C MOD) 175 ml LV EF (4C MOD) 60 % LV Diastolic Volume (2C MOD) 132 ml LV EF (2C MOD) 59 % LV Diastolic Volume (BP MOD) 159 ml 62-150 LV Diastolic Volume Index (BP MOD) 59 ml/m2 34-74 LV Systolic Volume (BP MOD) 62 ml 21-61 LV Systolic Volume Index (BP MOD) 23 ml/m2 11-31 LV EF (BP MOD) 61 % 52-72 LV Diastolic Length (4C) 10.3 cm LV Systolic Length (4C) 7.7 cm LV Stroke Volume (4C MOD) 105 ml Atria Name Value Normal LA Dimensions LA Dimension (MM) 4.9 cm 3.0-4.0 LA Volume (4C A-L) 125 ml LA Volume (BP A-L) 124 ml RA Dimensions RA Area (4C) 17.3 cm2 <=18.0 Report Signatures
--- NOTE | 2024-11-18 08:06 | EST_ITS ---
Patient Info Name: Werner Mendoza Age: 49 years : 1975 Gender: Male Ht: 79 in Wt: 280 lbs BSA: 2.69 m2 HR: 72 bpm BP: 134 / 87 mmHg Exam Date: 11/18/2024 8:06 AM Patient Status: O Admit Date: 11/18/2024 Exam Type: CA stress test treadmill A treadmill exercise stress test was performed. Staff Attending Provider: Denise King Exercise Technologist: Emilie Garcia Exercise Physician: Escobar White DO Summary 1. 1. Negative Kendrick exercise stress test for ischemic ST changes by ECG criteria. 2. 2. Reduced functional capacity, achieving 10 METs of workload. 3. 3. Hypertensive response to exercise. 4. 4. Appropriate HR response to exercise. 5. 5. Appropriate HR recovery at 1 minute post exercise. 6. 6. No imaging with stress testing. 7. 7. Patient informed of the above results. Protocol: Kendrick Stress ECG Details Stage: REST Duration (min): 1 min : 20 sec Speed (mph): 0.0 Grade (%): 0 HR (bpm): 71 SBP (mmHg): 134 DBP (mmHg): 87 METS: --- Stage: REST Duration (min): 5 min : 7 sec Speed (mph): 0.0 Grade (%): 0 HR (bpm): 74 SBP (mmHg): 134 DBP (mmHg): 87 METS: --- Stage: STAGE 1 Duration (min): 1 min : 0 sec Speed (mph): 1.7 Grade (%): 10 HR (bpm): 100 SBP (mmHg): 134 DBP (mmHg): 87 METS: --- Stage: STAGE 1 Duration (min): 2 min : 0 sec Speed (mph): 1.7 Grade (%): 10 HR (bpm): 100 SBP (mmHg): 134 DBP (mmHg): 87 METS: --- Stage: STAGE 1 Duration (min): 3 min : 0 sec Speed (mph): 1.7 Grade (%): 10 HR (bpm): 101 SBP (mmHg): 154 DBP (mmHg): 62 METS: --- Stage: STAGE 2 Duration (min): 1 min : 0 sec Speed (mph): 2.5 Grade (%): 12 HR (bpm): 119 SBP (mmHg): 154 DBP (mmHg): 62 METS: --- Stage: STAGE 2 Duration (min): 2 min : 0 sec Speed (mph): 2.5 Grade (%): 12 HR (bpm): 111 SBP (mmHg): 154 DBP (mmHg): 62 METS: --- Stage: STAGE 2 Duration (min): 3 min : 0 sec Speed (mph): 2.5 Grade (%): 12 HR (bpm): 124 SBP (mmHg): 154 DBP (mmHg): 62 METS: --- Stage: STAGE 3 Duration (min): 1 min : 0 sec Speed (mph): 3.4 Grade (%): 14 HR (bpm): 128 SBP (mmHg): 154 DBP (mmHg): 62 METS: --- Stage: STAGE 3 Duration (min): 2 min : 0 sec Speed (mph): 3.4 Grade (%): 14 HR (bpm): 143 SBP (mmHg): 154 DBP (mmHg): 62 METS: --- Stage: STAGE 3 Duration (min): 3 min : 0 sec Speed (mph): 3.4 Grade (%): 14 HR (bpm): 136 SBP (mmHg): 214 DBP (mmHg): 80 METS: --- Stage: RECOVERY Duration (min): 0 min : 59 sec Speed (mph): 0.0 Grade (%): 0 HR (bpm): 106 SBP (mmHg): 214 DBP (mmHg): 80 METS: --- Stage: RECOVERY Duration (min): 1 min : 59 sec Speed (mph): 0.0 Grade (%): 0 HR (bpm): 92 SBP (mmHg): 214 DBP (mmHg): 80 METS: --- Stage: RECOVERY Duration (min): 2 min : 59 sec Speed (mph): 0.0 Grade (%): 0 HR (bpm): 76 SBP (mmHg): 214 DBP (mmHg): 80 METS: --- Stage: RECOVERY Duration (min): 3 min : 59 sec Speed (mph): 0.0 Grade (%): 0 HR (bpm): 84 SBP (mmHg): 138 DBP (mmHg): 83 METS: --- Stage: RECOVERY Duration (min): 4 min : 59 sec Speed (mph): 0.0 Grade (%): 0 HR (bpm): 84 SBP (mmHg): 138 DBP (mmHg): 89 METS: --- Stage: RECOVERY Duration (min): 5 min : 15 sec Speed (mph): 0.0 Grade (%): 0 HR (bpm): 82 SBP (mmHg): 138 DBP (mmHg): 89 METS: --- Rest HR: 74 bpm Peak HR: 150 bpm Rest Sys BP: 134 mmHg Peak Sys BP: 214 mmHg Max Pred HR: 173 bpm % Max Pred HR: 87 % Target HR: 147 bpm Max RPP: 32,100 bpm*mmHg Wadsworth Score: -13 BP Response: Patient exhibited a hypertensive response with stress Termination Reason: Reached target heart rate or workload Cardiac Symptoms: Shortness of breath Max ST Seg Deviation: -4.30 mm Total Time: 9 min : 0 sec Rest Starks BP: 87 mmHg Peak Starks BP: 80 mmHg Angina Score: None Total METS: 10.3 Resting ECG Sinus rhythm. Stress ECG No ST changes. Arrhythmias None. Report Signatures
== END 2024-11-18 07:36 | disposition home or self-care (01) ==
PROVIDERS: PCP Internal Medicine; Visit Provider Nurse Practitioner
DX: R07.9 Chest pain, unspecified (principal); R06.00 Dyspnea, unspecified
CPT/HCPCS: 93017; 93306

== ENCOUNTER 2024-11-25 14:29 | Outpatient (CLI) | payer BC, SELFPAY ==
[2024-11-25 15:13] LABS: Anion Gap 9 mmol/L (4-12); Blood Urea Nitrogen 16 mg/dL (9-20); Calcium 9.3 mg/dL (8.4-10.2); Carbon Dioxide 26 mmol/L (22-30); Chloride 102 mmol/L (98-107); Estimated Glomerular Filt Rate > 60; Glucose 102 mg/dL (65-110); Potassium 3.8 mmol/L (3.4-5.0); Sodium 137 mmol/L (137-145)
== END 2024-11-25 14:30 | disposition home or self-care (01) ==
LOC: ANHSURGERY 14:33
PROVIDERS: Anesthesiology; PCP Internal Medicine; Visit Provider Otolaryngology
DX: Z01.812 Encounter for preprocedural laboratory examination (principal); Z79.899 Other long term (current) drug therapy
CPT/HCPCS: 36415; 80048

== ENCOUNTER 2024-11-30 00:39 | Day surgery (SDC) | payer BC, SELFPAY ==
--- OUTSIDE RECORDS SUMMARY | 2002-02-21 05:15 | XMS_ITS | Continuity of Care Document ---
Author Organization [facility] Address [address] [place] [address] [address] [place] [address] Phone Care Team Providers Care Special Needs Tutor Name Role Phone Carmen Garcia Unavailable Unavailable Advance Directives Directive Yes / No Effective Date File Name No Information Encounters Encounter Description Practice Location Reason(s) For Visit Diagnoses Date Provider Providers Copied on Encounter [facility], [address] [place], [place], [id number], [place] tel:[phone] [facility] [place] No Information 4-200 3 Radha Morales. [address] [facility] , [address], [place], [address], [place]. tel:[phone] Family History Family Member Type Diagnosis Age At Onset No Information Payers Payer name Insurance type Covered alliance party ID Authoriza tion(s) No Information Social History Type Description Quantity Date Captured Comments Sex Male Smoking Status No Information Chief Complaint And Reason For Visit No Information Reason For Referral Reason For Referral No Information History Of Present Illness Encounter Date Complaint History Of Prese nt Illness No Information Functional Status Date Functional Assessmen t No Information Instructions Date Instruction Additional Infor mation No Information Assessments Type Assessment Date No Information Patient Care Teams Name Effective Dates (start - stop) Status Members No Information
[2024-11-24 10:19] VITALS: BMI 31.6
--- NOTE | 2024-11-24 10:20 | SUR.PREOP ---
[facility] has started construction of its new state of the art ER which will open Spring 2026. With this, we anticipate parking may be a challenge for some our surgical patients and families. Parking spaces are limited but are available for all Surgical, obstetrics, and ER patients sharing this lot. If you arrive and find you are having a hard time finding a parking space, please note that we understand the challenges, please drive around the hospital and park near Hospital Entrance 1. When you enter this entrance, you can ask a volunteer to direct or take you back to the surgical waiting area to check in. We appreciate everyone?s understanding of these expected challenges while we build for your future. Report to the Outpatient Waiting Room, entrance under the green pavilion located off [address], at time _0630 on date 11/30/2024__. Planned Procedure Time: __0830 .? Time changes happen often and if your time is changed the preop area will call you the afternoon before. - You and your visitor will be asked to self-screen and do not enter if you have any COVID symptoms. Please call surgeon if you need to reschedule. - A mask is optional within the hospital at this time. Patients may have clear liquids (water, carbonated beverages, clear teas, apple juice) until 3 hours prior to surgery with a maximum of 20 ounces. - No food from midnight until time of surgery and no smoking, or chewing tobacco (or any form of nicotine). No chewing gum, candy or mints. Take only the following medications with a SIP of water on the morning of surgery: ___None____ DO NOT STOP ANY OF YOUR OTHER PRESCRIPTION MEDICATIONS PRIOR TO SURGERY EXCEPT THE FOLLOWING Hold all vitamins and supplements for 3 days per anesthesiologist. Medications to discontinue per physician none Date to take last dose_of Vitamins_11/26/24___. Please no make-up, nail mohawk, hairspray, perfume, deodorant, or body powder the day of surgery.? No jewelry (including any body piercings) or valuables the day of surgery, leave them at home.? Please take a shower or bath the night before, or the morning of, surgery with an antibacterial soap.? Wear comfortable, loose fitting clothing.? - Jewelry must be removed prior to entering the operating room.? Rings and piercings that are not removed may be cut off. - The hospital will not accept responsibility for valuables.? - Please leave all valuables, including medications, at home the day of surgery. If you are going home after surgery, a licensed local city driver must drive you home.? - NO public transportation without another adult if you receive anesthesia. - We recommend that an adult stay with you for 24 hours following discharge. - We also recommend that you do not drive, make important decision, drink alcoholic beverages, or take any drugs that were not prescribed by your health care provider for at least 24 hours after your discharge time. Follow any additional instructions given to you from your surgeon. Telephone instructions given to _Fili and asked if any additional questions and then verbalized understanding. Patient advised to call surgeon office or pre surgery nurse liaison [phone] if any additional questions.
--- NOTE | 2024-11-27 16:26 | PM.IMHP ---
H&P: HPI History of Present Illness Date/Time: 11/27/24 16:26 Chief Complaint: Nasal obstruction nasal congestion septal deviation turbinate hypertrophy Narrative: planned surgical procedure Review of Systems Review of Systems: All systems reviewed & are unremarkable except as noted in HPI and below PMFSH Past Medical History Medical History Kidney stones Anxiety Obesity (BMI 30-39.9) Obstructive sleep apnea Hypertension Erectile dysfunction Hyperlipidemia LDL goal <130 Surgical History Surgical History Hx of umbilical hernia repair Open umbilical hernia repair w/ mesh on 11/06/21 History of laparoscopic appendectomy 07/26/20 History of foot surgery History of inguinal hernia repair at age 7 Family History Family History Mother Diabetes mellitus Family history of gout Hypertension Grandparent Diabetes mellitus Family history of malignant neoplasm Father , age 68 Family history of chronic obstructive pulmonary disease Family history of congestive heart failure Lung cancer Social History Social History Social History: The patient lives at home with his , Beverly. He does not have a durable Healthcare power of privacy attorney, and wishes that his Beverly make any decisions for him if he becomes unable to make decisions himself. Caffeine-daily Smoking packs per day: 0.5 Smoking cigarettes per day: 10.0 Years smoked: 3 Smoking pack-years: 1.50 Smoking status: Former smoker Tobacco type: cigarettes Second hand tobacco smoke exposure: No Smoking end date: 07/19/24 Alcohol intake: current Drinks per week: 5 Alcohol use details: beer/bourbon Substance use: never Substance use type: does not use Lack of Transportation: No Lack of Food: Never True Current Housing: I Have Housing Concerned About Future Housing: No Difficulty Paying Gas/Electric Bills: No Difficulty Paying for Meds: No Currently Unemployed: No Education: High School Diploma/GED Difficulty w/ Childcare or Family Care: No Living arrangements: with friend(s) Additional living arrangements comments: live with girlfriend. Occupation/Education: occupation Additional occupation/education comments: Works at [employer] Gender identity (if verbalized by the patient): Female Sexual Orientation (if Verbalized by the Patient): Straight or Heterosexual Spiritual care concerns: No Agree to blood products: Yes Meds Home Medications and Allergies Home Medications ?Medication ?Instructions ?Recorded ?Confirmed ?Type tadalafil 20 mg tablet (Cialis) 20 mg PO DAILY PRN sexual activity 02/20/23 11/24/24 Rx #18 tabs pen needle, diabetic 31 gauge x #100 ea 08/28/23 11/12/24 Rx 3/16 (BD Ultra-Fine Mini Pen Needle) omeprazole 40 mg capsule,delayed 40 mg PO DAILY #90 caps 12/16/23 11/24/24 Rx release testosterone cypionate 100 mg/mL 80 mg IM WEEKLY 05/15/24 11/24/24 History intramuscular oil hydrochlorothiazide 12.5 mg tablet 12.5 mg PO DAILY #90 tabs 07/17/24 11/24/24 Rx zolpidem 10 mg tablet 10 mg PO QHS #30 tabs 09/11/24 11/24/24 Rx atorvastatin 20 mg tablet 20 mg PO DAILY #90 tabs 09/22/24 11/24/24 Rx irbesartan 150 mg tablet 150 mg PO DAILY #90 tabs 09/22/24 11/24/24 Rx cyanocobalamin (vitamin B-12) 1,000 mcg IM WEEKLY 3 months #13 mL 11/20/24 11/24/24 Rx 1,000 mcg/mL injection solution doxycycline hyclate 100 mg tablet 100 mg PO BID 11/24/24 11/24/24 History fexofenadine 60 mg tablet (Kisha 60 mg PO PRN 11/24/24 11/24/24 History Allergy) multivitamin (Daily Multi-Vitamin 1 tablet PO DAILY 11/24/24 11/24/24 History tablet) mupirocin 2 % topical ointment 1 applic topical BID #22 grams 11/26/24 Rx (Centany) Allergies Allergy/AdvReac Type Severity Reaction Status Date / Time pregabalin (From Lyrica) AdvReac Nausea and Verified 11/24/24 09:59 Vomiting Exam Narrative: septal deviation turbinate hypertrophy Assessment and Plan Assessment and plan (1) Nasal congestion: Code(s): R09.81 - Nasal congestion Status: Acute Assessment and Plan: plan operating room septoplasty endoscopic assisted bilateral inferior turbinate reduction with outfracture. Total operative time 1:00 a.m.. Risks were discussed bleeding infection damage to structures need further procedures change in cosmetic appearance septal perforation CSF leak brain brain damage change in vision total blindness. Time-out for time off school inherent risk of mycotic using her risk of medication antibiotic use. Damage to any structure above the clavicle by myself damage to structure induction remains of Anesthesia. Tooth numbness which can be persistent. (2) Nasal obstruction: Code(s): J34.89 - Other specified disorders of nose and nasal sinuses Status: Acute (3) Nasal congestion: Code(s): R09.81 - Nasal congestion Status: Acute (4) Nasal septal deviation: Code(s): J34.2 - Deviated nasal septum Status: Acute (5) Hypertrophy of both inferior nasal turbinates: Code(s): J34.3 - Hypertrophy of nasal turbinates Status: Acute
[2024-11-30] VITALS (9 sets, daily range): BP systolic 93–150; BP diastolic 60–94; PULSE 61–88; RESP 13–16; TEMP 36.2–36.3; O2SAT 94–100
--- OUTSIDE RECORDS SUMMARY | 2024-11-30 00:42 | XMS_ITS | Data Portability ---
Author Organization [facility] Remind, Main Office Address [address] [place] [address] Assessment No assessment recorded. Plan of Treatment Reminders Order Date Submit Date Provider Last Modified By Organization Details Last Modified Time Details Appointments None recorded. Lab lh + FSH, serum 2022 023 [employer] [facility], [address], [place], [address], 3 16:25:59 estradiol, serum 2022 023 [employer] [facility], [address], [place], [address], 3 16:25:57 PSA, serum or plasma 2022 023 [employer] [facility], [address], [place], [address], 3 16:25:58 prolactin, serum 2022 023 [employer] [facility], [address], [place], [address], 3 16:25:56 igf-1 (insulin-li ke growth factor), serum 2022 023 [employer] [facility], [address], [place], [address], 3 16:25:54 CBC w/ auto diff 2022 023 [employer] [facility], [address], [place], [address], 3 16:25:55 TSH + free T4, serum 2022 023 [facility], [address], [place], [address], 3 16:26:00 vitamin B12 + folate, serum or blood 2022 023 [facility], [address], [place], [address], 3 16:25:59 CMP, serum or plasma 2022 023 [facility], [address], [place], [address], 3 16:25:53 thyroid peroxidase (tpo) Ab, serum 2022 023 [facility], [address], [place], [address], 3 16:25:56 testosteron e, free + total, serum 2022 023 [facility], [address], [place], [address], 3 16:25:52 iron + TIBC + ferritin, serum 2022 023 [facility], [address], [place], [address], 3 16:25:51 Referral None recorded. Procedures None recorded. Surgeries None recorded. Imaging US, thyroid 2022 023 [facility], [address], [address] [address], [place], [address], 3 07:28:41 XR, chest, 2 view 2022 023 [facility], [address], [address] [address], [place], [address], 3 17:25:27 Medication Orders None recorded. Patient TargetsNo targets recorded. Patient InstructionsNo instructions recorded. Reason for Referral None Reported. Results Created Date Observation Date Name Description Value Unit Range Abnormal Flag Note LastModifiedBy Organization Detail LastModifiedTime 05/05/1905/10/2022 IRON, TIBC AND SERGEY TIN PANEL iron, total 66 mcg/d L 50-180 normal Not Available [address], [address], 05/10/2022 16:25:51 05/05/1905/10/2022 IRON, TIBC AND SERGEY TIN PANEL iron binding capacity 308 mcg/d L_(ca lc) 250-42 5 normal Not Available [address], [address], 05/10/2022 16:25:51 05/05/1905/10/2022 IRON, TIBC AND SERGEY TIN PANEL % saturation 21 %_(ca lc) 20-48 normal Not Available [address], [address], 05/10/2022 16:25:51 05/05/1905/10/2022 IRON, TIBC AND SERGEY TIN PANEL ferritin 72 NG/mL 38-380 normal Not Available [address], [address], 05/10/2022 16:25:51 05/05/1905/10/2022 TESTO STERO NE, FREE, BIOAV AILAB LE AND TOTAL , MS albumin 4.4 g/dL 3.6-5. 1 Not Available [address], [address], 05/10/2022 16:25:52 05/05/19 23 05/10/2022 TESTO STERO NE, FREE, BIOAV AILAB LE AND TOTAL , MS sex hormone binding globulin 33.3 nmol/ L 10-50 Not Available [address] [address] [place], [address], 05/10/2022 16:25:52 05/05/1905/10/2022 TESTO STERO NE, FREE, BIOAV AILAB LE AND TOTAL , MS testosterone , free 62.2 pg/mL 46.0-2 24.0 Not Available [address] [address] [place], [address], 05/10/2022 16:25:52 05/05/1905/10/2022 TESTO STERO NE, FREE, BIOAV AILAB LE AND TOTAL , MS testosterone ,bioavailabl e 125.2 NG/dL 110.0- 575.0 Not Available [address] [address] [place], [address], 05/10/2022 16:25:52 05/05/1905/10/2022 TESTO STERO NE, FREE, BIOAV AILAB LE AND TOTAL , MS testosterone , total, MS 466 NG/dL 250-11 00 For addit ional radhar erik christianson refer to https ://ed ucati on.qu karlie [employer]. [employer]/f aq/FA Q165 (This link is being provi ded for infor dianne nal/e ducat ional purpo ses only. ) (Note ) This test was devel oped and its alec tical perfo rmanc e deep cteri stics have been deter mined by [employer]. It has not been clear ed or appro jaime by the FDA. This assay has been valid ated pursu ant to the CLIA regul ation s and is used for clini yair purpo ses. MARYSE perez n [address] [facility] [address] [facility] [address] [phone] Umesh zaragoza MD Not Available [address] [address] [place], [address], 05/10/2022 16:25:52 05/05/1905/10/2022 COMPR EHENS SUSIE METAB OLIC PANEL glucose 105 mg/dL 65-139 normal Non-f astin g refer ence inter hussain Not Available [address] [address] [place], [address], 05/10/2022 16:25:53 05/05/1905/10/2022 COMPR EHENS SUSIE METAB OLIC PANEL urea nitrogen (BUN) 19 mg/dL 7-25 normal Not Available [address] [address] [place], [address], 05/10/2022 16:25:53 05/05/1905/10/2022 COMPR EHENS SUSIE METAB OLIC PANEL creatinine 1.08 mg/dL 0.60-1 .29 normal Not Available [address] [address] [place], [address], 05/10/2022 16:25:53 05/05/1905/10/2022 COMPR EHENS SUSIE METAB [...] kdoqi /gfr% 5Fcal culat or Not Available [address] [address] [place], [address], 05/10/2022 16:25:53 05/05/1905/10/2022 COMPR EHENS SUSIE METAB OLIC PANEL BUN/creatini ne ratio NOT APPLIC ABLE (calc ) 6-22 Not Available [address] [address] [place], [address], 05/10/2022 16:25:53 05/05/19 23 05/10/2022 COMPR EHENS SUSIE METAB OLIC PANEL sodium 137 mmol/ L 135-14 6 normal Not Available [address], [address], 05/10/2022 16:25:53 05/05/19 23 05/10/2022 COMPR EHENS SUSIE METAB OLIC PANEL potassium 4.1 mmol/ L 3.5-5. 3 normal Not Available [address], [address], 05/10/2022 16:25:53 05/05/19 23 05/10/2022 COMPR EHENS SUSIE METAB OLIC PANEL chloride 105 mmol/ L 98-110 normal Not Available [address], [address], 05/10/2022 16:25:53 05/05/19 23 05/10/2022 COMPR EHENS SUSIE METAB OLIC PANEL carbon dioxide 26 mmol/ L 20-32 normal Not Available [address], [address], 05/10/2022 16:25:53 05/05/19 23 05/10/2022 COMPR EHENS SUSIE METAB OLIC PANEL calcium 9.5 mg/dL 8.6-10 .3 normal Not Available [address], [address], 05/10/2022 16:25:53 05/05/19 23 05/10/2022 COMPR EHENS SUSIE METAB OLIC PANEL protein, total 6.8 g/dL 6.1-8. 1 normal Not Available [address], [address], 05/10/2022 16:25:53 05/05/19 23 05/10/2022 COMPR EHENS SUSIE METAB OLIC PANEL albumin 4.5 g/dL 3.6-5. 1 normal Not Available [address] [address] [place], [address], 05/10/2022 16:25:53 05/05/19 23 05/10/2022 COMPR EHENS SUSIE METAB OLIC PANEL globulin 2.3 g/dL_ (calc ) 1.9-3. 7 normal Not Available [address], [address], 05/10/2022 16:25:53 05/05/19 23 05/10/2022 COMPR EHENS SUSIE METAB OLIC PANEL albumin/glob ulin ratio 2.0 (calc ) 1.0-2. 5 normal Not Available [address], [address], 05/10/2022 16:25:53 05/05/19 23 05/10/2022 COMPR EHENS SUSIE METAB OLIC PANEL bilirubin, total 1.0 mg/dL 0.2-1. 2 normal Not Available [address] [address] [place], [address], 05/10/2022 16:25:53 05/05/19 23 05/10/2022 COMPR EHENS SUSIE METAB OLIC PANEL alkaline phosphatase 52 U/L 36-130 normal Not Available [address] [address] [place], [address], 05/10/2022 16:25:53 05/05/19 23 05/10/2022 COMPR EHENS SUSIE METAB OLIC PANEL AST 19 U/L 10-40 normal Not Available [address], [address], 05/10/2022 16:25:53 05/05/19 23 05/10/2022 COMPR EHENS SUSIE METAB OLIC PANEL ALT 24 U/L 9-46 normal Not Available [address] [address] [place], [address], 05/10/2022 16:25:53 05/05/19 23 05/10/2022 IGF 1, LC/MS igf 1, lc/MS 176 NG/mL 52-328 Not Available [address], [address], 05/10/2022 16:25:54 05/05/1905/10/2022 IGF 1, LC/MS Z [...] for clini yair purpo ses. Not Available [facility] [address], [address], 05/10/2022 16:25:54 05/05/1905/10/2022 CBC (INCL UDES DIFF/ PLT) white blood cell count 4.9 thous and/u L 3.8-10 .8 normal Not Available [facility] [address], [address], 05/10/2022 16:25:55 05/05/19 23 05/10/2022 CBC (INCL UDES DIFF/ PLT) red blood cell count 5.67 jad on/uL 4.20-5 .80 normal Not Available [facility] [address], [address], 05/10/2022 16:25:55 05/05/19 23 05/10/2022 CBC (INCL UDES DIFF/ PLT) hemoglobin 17.2 g/dL 13.2-1 7.1 high Not Available [facility] [address], [address], 05/10/2022 16:25:55 05/05/1905/10/2022 CBC (INCL UDES DIFF/ PLT) hematocrit 49.8 % 38.5-5 0.0 normal Not Available [address], [address], 05/10/2022 16:25:55 05/05/1905/10/2022 CBC (INCL UDES DIFF/ PLT) MCV 87.8 fL 80.0-1 00.0 normal Not Available [address], [address], 05/10/2022 16:25:55 05/05/1905/10/2022 CBC (INCL UDES DIFF/ PLT) MCH 30.3 pg 27.0-3 3.0 normal Not Available [address], [address], 05/10/2022 16:25:55 05/05/1905/10/2022 CBC (INCL UDES DIFF/ PLT) MCHC 34.5 g/dL 32.0-3 6.0 normal Not Available [address], [address], 05/10/2022 16:25:55 05/05/19 23 05/10/2022 CBC (INCL UDES DIFF/ PLT) RDW 13.4 % 11.0-1 5.0 normal Not Available [address], [address], 05/10/2022 16:25:55 05/05/19 23 05/10/2022 CBC (INCL UDES DIFF/ PLT) platelet count 210 thous and/u L 140-40 0 normal Not Available [address], [address], 05/10/2022 16:25:55 05/05/1905/10/2022 CBC (INCL UDES DIFF/ PLT) MPV 11.1 fL 7.5-12 .5 normal Not Available [address] [place], [address], 05/10/2022 16:25:55 05/05/1905/10/2022 CBC (INCL UDES DIFF/ PLT) absolute neutrophils 2602 cells /uL 1500-7 800 normal Not Available [address], [address], 05/10/2022 16:25:55 05/05/19 23 05/10/2022 CBC (INCL UDES DIFF/ PLT) absolute lymphocytes 1602 cells /uL 850-39 00 normal Not Available [address], [address], 05/10/2022 16:25:55 05/05/1905/10/2022 CBC (INCL UDES DIFF/ PLT) absolute monocytes 544 cells /uL 200-95 0 normal Not Available [address], [address], 05/10/2022 16:25:55 05/05/19 23 05/10/2022 CBC (INCL UDES DIFF/ PLT) absolute eosinophils 103 cells /uL 15-500 normal Not Available [address], [address], 05/10/2022 16:25:55 05/05/1905/10/2022 CBC (INCL UDES DIFF/ PLT) absolute basophils 49 cells /uL 0-200 normal Not Available [address], [address], 05/10/2022 16:25:55 05/05/19 23 05/10/2022 CBC (INCL UDES DIFF/ PLT) neutrophils 53.1 % normal Not Available [address], [address], 05/10/2022 16:25:55 05/05/1905/10/2022 CBC (INCL UDES DIFF/ PLT) lymphocytes 32.7 % normal Not Available [address], [address], 05/10/2022 16:25:55 05/05/19 23 05/10/2022 CBC (INCL UDES DIFF/ PLT) monocytes 11.1 % normal Not Available [address], [address], 05/10/2022 16:25:55 05/05/19 23 05/10/2022 CBC (INCL UDES DIFF/ PLT) eosinophils 2.1 % normal Not Available [facility] [address], [address], 05/10/2022 16:25:55 05/05/19 23 05/10/2022 CBC (INCL UDES DIFF/ PLT) basophils 1.0 % normal Not Available [address], [address], 05/10/2022 16:25:55 05/05/19 23 05/10/2022 THYRO ID PEROX IDASE ANTIB ODIES thyroid peroxidase antibodies 3 IU/mL <9 normal Not Available [address], [address], 05/10/2022 16:25:55 05/05/1905/10/2022 PROLA CTIN prolactin 7.0 NG/mL 2.0-18 .0 normal Not Available [address], [address], 05/10/2022 16:25:56 05/05/1905/10/2022 ESTRA DIOL estradiol 21 [...] is recom chauncey d (orde r code 17990 ). Erik layne note: patie nts being [...] s. [facility] order code 38024 -Estr adiol , Ultra sensi tive LC/MS /MS demon strat es negli gible cross react ivity with fulve stran t. Not Available [facility] [address] [place], [address], 05/10/2022 16:25:57 05/05/1905/10/2022 PSA, TOTAL PSA, total [...] not be inter prete d as absol [employer] evide nce of the prese nce or absen ce of disea se. Not Available [facility] [address] [place], [address], 05/10/2022 16:25:58 05/05/1905/10/2022 VITAM IN B12/F OLATE [...] pg/mL will have sympt oms. Not Available [facility] [address], [address], 05/10/2022 16:25:59 05/05/1905/10/2022 VITAM IN B12/F OLATE , SERUM PANEL folate, serum 18.2 NG/mL normal Refer ence Range Low: <3.4 Borde rline : 3.4-5 .4 Flaquita l: >5.4 Not Available [facility] [address], [address], 05/10/2022 16:25:59 05/05/1905/10/2022 FSH AND LH FSH 4.9 mIU/m L 1.6-8. 0 normal Not Available [facility] [address] [place], [address], 05/10/2022 16:25:59 05/05/1905/10/2022 FSH AND LH LH 3.7 mIU/m L 1.5-9. 3 normal Not Available [facility] [address], [address], 05/10/2022 16:25:59 05/05/1905/10/2022 TSH+F REE T4 TSH 1.34 mIU/L 0.40-4 .50 normal Not Available [facility] [address], [address], 05/10/2022 16:26:00 05/05/19 23 05/10/2022 TSH+F REE T4 T4, free 0.9 NG/dL 0.8-1. 8 normal Not Available [facility] [address] [address], [place], [address], 05/10/2022 16:26:00 05/10/19 23 05/09/2022 XR, chest , 2 view No observ ation record ed. [address], [place], [address], 05/14/2022 14:16:24 05/11/1905/09/2022 US, thyro id No observ ation record ed. [address] [facility] [address], [place], [address], 05/14/2022 14:16:25 Result Notes None recorded. Problems Name Problem SNOMED Code Status Onset Date Resolution Date Notes Provider Name and Address Organization Details Recorded Time Acute sinusitis 14525701 Active Not Available [facility] 14:48:57 Essential hypertension 91660259 Active Not Available [facility] 14:48:57 Fatigue 55612829 Active 2022 Lore Rivera MD [address], [place], [address] , [facility] [employer] [facility] 3 16:51:04 Testosterone level below reference range 484521835 Active 2022 Lore Rivera MD [address], [place], [address] , [facility] [employer] [facility] [employer] 3 16:51:40 Abnormal breath sounds 974678466 Active 2022 MD Ra[address], [place], [address] , [facility] [employer] [facility] [employer] [facility] 3 16:55:04 Goiter 4196310 Active 2022 Lore Rivera MD [address], [place], [address] , [facility] [employer] [facility] 3 16:55:33 Impaired fasting glycemia 628670077 Active 2022 Lore Rivera MD [address], [facility] [address], [place], [address] , [facility] [employer] [facility] 3 14:22:36 Vitamin B12 deficiency (non anemic) 08808077 Active 2022 Lore Rivera MD [address], [facility] [address], [place], [address] , [facility] [employer] [facility] 3 14:22:59 Problem Notes None recorded. Procedures Surgical History Date Name Laterality Status Provider Name and Address Organization Details Recorded Time Appendectomy completed Michelle Mckenzies [facility] [employer] [facility] 05/02/2022 16:36:30 Hernia Repair completed Michelle Chow [facility] [employer] [facility] 05/02/2022 16:36:37 Imaging Results None recorded. [...] Address Organization Details Last Updated DateTime 3 991684. 49 g 200.66 cm 31.1 kg/m2 97.6 [degF] 88 /min 140/82 mm[Hg] Michelle Chow CMA [place] [facility] 3 16:30:54 Social History None recorded. Functional Status Question Answer Note LastModified by Organizat ion Details LastModified Time What is your level of alcohol consumption? 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 Family History Relationship Description Onset Age of this Age Resolved Age Notes LastModified by Organization Details LastModified Time Father Family history of malignant neoplasm [email or web address] Not available 05/02 16:34:19 Medical History Condition Response HIGH CHOLESTEROL / HYPERLIPIDEMIA Y DEPRESSION (INCLUDING POST ) Y HYPERTENSION Y Past Encounters Encounter ID Performer Location Encounter Start Date Encounter Closed Date Diagnosis/Indication Diagnosis SNOMED-CT Code Diagnosis ICD10 Code Diagnosis IMO Codes Diagnosis Note [id number] Lore Rivera MD [facility] Mary [facility]rego [address] [place] [address] 05/02/2022 16:21:58 05/02/2022 17:31:00 Fatigue 13215230 R53.83 Will send for thyroid antibodies to screen for autoimmune thyroid disease in addition to CBC, CMP, ferritin, repeat testostero ne and B12/folate to screen for other potential secondary causes of fatigue. Testostero ne level below reference range 732766531 R79.89 Send for full hormone panel as patient having increase breast tissue and discomfort of breasts, more fatigue, heat/cold intoleranc e and difficulty with libido and weight gain. Abnormal b reath sounds 673355989 R09.89 Send for CXR as he has positive egophony in left mid lung-per patient he had covid issues in 2019 and a spot was found on his lungs- hasn't had imaging in close to 2 years now. Goiter 9416697 E04.9 Will send for baseline thyroid ultrasound [...] he chooses to go outside of the [facility] to obtain labwork he was [...] ID Marcum Member ID Guarantor Name 03/01/2023 [facility] Werner Mendoza SELF SELF Werner Mendoza 03/01/2023 1 [employer] [id number] Werner Mendoza [id number] Werner Mendoza Notes Date Note Type Note [...] ng/dL Lore Rivera MD [address], [facility] [address], [place], [address], [facility] [employer] 05/02/2022 17:53:20
--- OUTSIDE RECORDS SUMMARY | 2024-11-30 00:42 | XMS_ITS | Clinical Summary ---
Author Organization [facility] Address [facility] [place] [address] Care Team Providers Care Mill Supervisor Name Role Phone Rudolph Hart DO Primary Care Provider Encounters Date Type Department Care Team Description 10/07/2024 2:35 PM CDT - 10/07/2024 11:59 PM CDT Hospital Encounter [facility] [address] [place] [address] Aimee Gill MD Discharge Disposition: Home or [...] - 19+ 3-dose series) 1996 COVID-19 Vaccine (2024- season) 2024 01/01/2022, 01/06/2021, 07/07/2020, Additional history exists Influenza Adult (#1) 2024 12/19/2022, 01/02/20 22 Meningococcal B Vaccine Aged Out No l [...] 8:22 AM Narrative 10/15/2024 8:24 AM CDT [address] [address] EXAMINATION:Sinus CT without contrast 10/07/2024 INDICATION:Chronic sinusitis [...] Procedure Note Rudolph Rizvi MD - 10/15/[address] [address] EXAMINATION:Sinus CT without contrast 10/07/2024 INDICATION:Chronic sinusitis [...] By: Rudolph Rizvi MD, 10/15/2024 8:22 AM us Aimee Gill MD CT Final Result from Last 3 Months Insurance [facility] Member Subscriber Plan / Payer (Ef fective for All Dates) Name:Werner Mendoza Relation to Subscriber:Self Name:Werner Mendoza Payer ID:Not on file Type:Not on file Address: [facility] [id number] [place], [place] [id number] [place] [address] Care Teams Mill Supervisor Relationship Specialty Start Date End Date Rudolph Hart DO [address] [facility] [address] [place] [address] PCP - General INTERNAL MEDICINE 10/07/24
--- OUTSIDE RECORDS SUMMARY | 2024-11-30 00:42 | XMS_ITS | Clinical Summary ---
Author Organization [facility] Address [address] [place] [address] Phone Care Team Providers Care Test Desk Trouble Locator Name Role Phone Stoney Randall MD Primary Care Provider [phone] Active Problems Problem Noted Date Diagnosed Date [...] of 3 - 19+ 3-dose series) 1996 Cologuard 2022 Colonoscopy 2022 Colorectal Cancer Screening 2022 Immunochemical Fecal Occult Blood 2022 Influenza Immunization (#1) 2024 SARS-COV-2 Immunization ( season) 2024 01/06/2021, 07/07/2020, 06/03/2020 Respiratory Syncytial Virus (RSV) Immunization (Adult) (1 - 1-dose 75+ series) 2052 Human Papillomavirus (HPV) Immunization Aged Out No longer eligible b ased on patient's age to complete this topic Meningococcal Immunization (ACWY) Aged Out No longer eligible b ased on patient's age to complete this topic Pneumococcal Immunization Combined Aged Out No longer eligible b ased on patient's age to complete this topic Rotavirus Immunization Aged Out No lo nger eligible based on patient's age to complete this topic Care Teams Test Desk Trouble Locator Relationship Specialty Start Date End Date Stoney Randall MD [address] [address] PCP - General Family Medicine 06/27/16
--- OUTSIDE RECORDS SUMMARY | 2024-11-30 00:42 | XMS_ITS | Clinical Summary ---
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 [id number] [facility] CHOICE OOS Care Teams Instrument Specialist Relationship Specialty Start Date End Date José Miguel Car MD [address] [place] [address] PCP - General 04/02/18
[2024-11-30] MEDS: ACETAMINOPHEN 500 MG TABLET 1000 MG PO (06:45)
[2024-11-30] MEDS: LACTATED RINGERS 1,000 ML 30 ML IV CONT ×2 (06:50→09:40)
--- NOTE | 2024-11-30 07:06 | WPDANESEPPF ---
Anes - Initial Pre Proc Eval Procedure: Operation Date: 11/30/24 08:30 Proposed Procedures p Endoscopic Assisted Septoplasty, - Blade Deluca MD s Bilateral Inferior Turbinate Reduction with Outfracture - Blade Deluca MD Date/Time: 11/30/24 07:06 Surgeon: Blade Deluca MD Pre Op Diagnosis: chronic sinusitis,deviated septum, Patient Data Age: 49 Gender: M Height: 2.01 m Weight: 131.5 kg Last Vital Signs Temp 36.3 C L 11/30/24 06:55 Pulse 74 11/30/24 06:55 Resp 16 11/30/24 06:55 BP 150/86 H 11/30/24 06:55 Pulse Ox 95 11/30/24 06:55 O2 Del Method Room Air 11/30/24 06:55 Allergies Allergy/AdvReac Type Severity Reaction Status Date / Time pregabalin (From Lyrica) AdvReac Nausea and Verified 11/30/24 07:02 Vomiting Home Medications ?Medication ?Instructions ?Recorded ?Confirmed ?Type tadalafil 20 mg tablet (Cialis) 20 mg PO DAILY PRN sexual activity 02/20/23 11/24/24 Rx #18 tabs pen needle, diabetic 31 gauge x #100 ea 08/28/23 11/12/24 Rx 3/16 (BD Ultra-Fine Mini Pen Needle) omeprazole 40 mg capsule,delayed 40 mg PO DAILY #90 caps 12/16/23 11/24/24 Rx release testosterone cypionate 100 mg/mL 80 mg IM WEEKLY 05/15/24 11/24/24 History intramuscular oil hydrochlorothiazide 12.5 mg tablet 12.5 mg PO DAILY #90 tabs 07/17/24 11/30/24 Rx zolpidem 10 mg tablet 10 mg PO QHS #30 tabs 09/11/24 11/24/24 Rx atorvastatin 20 mg tablet 20 mg PO DAILY #90 tabs 09/22/24 11/30/24 Rx irbesartan 150 mg tablet 150 mg PO DAILY #90 tabs 09/22/24 11/30/24 Rx cyanocobalamin (vitamin B-12) 1,000 mcg IM WEEKLY 3 months #13 mL 11/20/24 11/30/24 Rx 1,000 mcg/mL injection solution doxycycline hyclate 100 mg tablet 100 mg PO BID 11/24/24 11/30/24 History fexofenadine 60 mg tablet (Kisha 60 mg PO PRN 11/24/24 11/30/24 History Allergy) multivitamin (Daily Multi-Vitamin 1 tablet PO DAILY 11/24/24 11/30/24 History tablet) mupirocin 2 % topical ointment 1 applic topical BID #22 grams 11/26/24 11/30/24 Rx (Centany) Patient hx anesthesia problems: none Family hx anesthesia problems: none Results Review: All pre-operative results and documents have been reviewed as part of the pre-operative evaluation. [facility] Past Medical History Medical History Kidney stones Anxiety Obesity (BMI 30-39.9) Obstructive sleep apnea Hypertension Erectile dysfunction Hyperlipidemia LDL goal <130 Surgical History Surgical History Hx of umbilical hernia repair Open umbilical hernia repair w/ mesh on 11/06/21 History of laparoscopic appendectomy 07/26/20 History of foot surgery History of inguinal hernia repair at age 7 Family History Family History Mother Diabetes mellitus Family history of gout Hypertension Grandparent Diabetes mellitus Family history of malignant neoplasm Father , age 68 Family history of chronic obstructive pulmonary disease Family history of congestive heart failure Lung cancer Social History Social History Social History: The patient lives at home with his , Beverly. He does not have a durable Healthcare power of binding folder machine, and wishes that his Beverly make any decisions for him if he becomes unable to make decisions himself. Caffeine-daily Smoking packs per day: 0.5 Smoking cigarettes per day: 10.0 Years smoked: 3 Smoking pack-years: 1.50 Smoking status: Former smoker Tobacco type: cigarettes Second hand tobacco smoke exposure: No Smoking end date: 07/19/24 Alcohol intake: current Drinks per week: 5 Alcohol use details: beer/bourbon Substance use: never Substance use type: does not use Lack of Transportation: No Lack of Food: Never True Current Housing: I Have Housing Concerned About Future Housing: No Difficulty Paying Gas/Electric Bills: No Difficulty Paying for Meds: No Currently Unemployed: No Education: High School Diploma/GED Difficulty w/ Childcare or Family Care: No Living arrangements: with friend(s) Additional living arrangements comments: live with girlfriend. Occupation/Education: occupation Additional occupation/education comments: Works at [employer] Gender identity (if verbalized by the patient): Female Sexual Orientation (if Verbalized by the Patient): Straight or Heterosexual Spiritual care concerns: No Agree to blood products: Yes Anes - Eval Final PreProcedure Day of Procedure 11/30/24 07:06 Patient weight: overweight Heart: regular rate and rhythm Lungs: clear to auscultation Airway: Mallampati scale class III Neurological: alert and oriented Last oral intake: >/= 8 hours ASA classification: III Emergent: no Anesthetic plan: proceed Anesthesia type and monitoring: general ETT and standard monitoring Results Review: All pre-operative results and documents have been reviewed as part of the pre-operative evaluation. Informed Consent: The patient's anesthetic plan and its attendant risks and benefits were discussed with the patient/family/POA. Questions were solicited and answers provided to the satisfaction of the patient/family/POA.
--- NOTE | 2024-11-30 07:17 | WPDHPUPDATE1 ---
History and Physical Update Update Date/Time: 11/30/24 07:17 History and Physical has been reviewed, including an updated exam of the patient. There are NO changes in the patient's condition. Risks, benefits, and alternatives have been discussed and questions answered. Patient agrees to proceed with procedure.
[2024-11-30] MEDS: ceFAZolin 3 GM/D5W 100 ML 100 ML IVPB (08:15)
[2024-11-30] MEDS: LIDO 1%/EPINEPHRINE 1:100,000 20 ML VIAL 5 ML INFILTRATE (08:45)
[2024-11-30] MEDS: OXYMETAZOLINE HCL 0.05% NAS 15 ML BTL (*BKC) 20 SPRAY NASAL (08:46)
--- NOTE | 2024-11-30 09:55 | P.OP_ITS ---
Procedure Note - Detailed Date of Procedure 11/30/24 Pre-op Diagnosis Nasal obstruction, nasal congestion, septal deviation, turbinate hypertrophy Post-op Diagnosis Same Procedure Performed 1. Endoscopic assisted septoplasty 2. Inferior bilateral turbinate reduction with outfracture Surgeon Blade Deluca MD Anesthesia General Indications See above Findings Severely deviated rightward nasal septum, severely hypertrophied turbinates. Description of Procedure Patient identified consent verified in the preoperative holding area. Patient brought to the operating room. Time-out performed. General anesthesia induced endotracheal tube secured airway. Patient prepped draped position procedure confirmed 2nd time-out performed. Total 15 cc 1% lidocaine with 1 100,000 parts epinephrine injected in the bilateral nasal septum and inferior turbinates. Left-sided [place] incision made. With 15 blade. Nasal septal flap elevated with caudal as well as 7 Sinhala suction. No tears on the left side. Osteotome utilized to cross over right nasal septal flap septal flap elevated with the caudal and 7 Sinhala suction. Small 1 x 2 mm tear right-sided. No concomitant tear left side tear. When the septum was perfectly straight, the nasal septal flaps were elevated using stool were irrigated using sterile normal saline. No active bleeding. There were then sutured anteriorly using for 5 0 interrupted fast gut sutures. The inferior turbinates were then stab anteriorly using a 15 blade. They were reduced in the submucosal plane using [employer] 2 mm microdebrider. They were then outfractured using a [place] elevator. The bilateral nasal passages were suctioned clean. No active bleeding. Peters splints were then placed bilaterally and sutured anteriorly using a 3-0 mattress nylon suture. These were also coated in mupirocin. Total blood loss 20 cc. I performed all dictated portions of the procedure no complications. Care the patient was given Anesthesiology. Patient taken to PACU in good condition. Estimated Blood Loss 20 Drains No Packing No Pathology None sent Complications No immediate complications Condition Stable Disposition PACU [facility] Billing Surgery - Charge Forward: Surgery Billing
[2024-11-30] MEDS: fentaNYL CITRATE INJ (*CRX) 100 MCG/2 ML VIAL 25 MCG IV PUSH ×8 (10:01→10:25)
[2024-11-30] MEDS: oxyCODONE HCL (*CRX) 5 MG TAB IR PO (11:05)
== END 2024-11-30 11:49 | disposition home or self-care (01) ==
PROVIDERS: PCP Internal Medicine; Visit Provider Otolaryngology
PROC: (CPT 30520; principal; 2024-11-30 08:30)
PROC: (CPT 30520; 2024-11-30 08:30)
DX: J34.2 Deviated nasal septum (principal); J34.3 Hypertrophy of nasal turbinates; J34.89 Other specified disorders of nose and nasal sinuses; G89.18 Other acute postprocedural pain; E78.5 Hyperlipidemia, unspecified; I10 Essential (primary) hypertension; N52.9 Male erectile dysfunction, unspecified; G47.33 Obstructive sleep apnea (adult) (pediatric); F41.9 Anxiety disorder, unspecified; Z79.899 Other long term (current) drug therapy; Z98.890 Other specified postprocedural states; Z87.442 Personal history of urinary calculi; Z87.891 Personal history of nicotine dependence; Z80.1 Family history of malignant neoplasm of trachea, bronchus and lung; Z82.49 Family history of ischemic heart disease and other diseases of the circulatory system
CPT/HCPCS: 30520; 30140; A9270; J0690; J1100; J2003; J2004; J2250; J2405; J2704; J3010; J7050; J7120